=== PATIENT | male | born 1965 | race Caucasian/White ===

== ENCOUNTER → 2020-08-22 02:43 | Outpatient (CLI) | payer MEDICARE, MEDICAID, SELFPAY ==
[2020-08-22 19:42] LABS: SARS-CoV-2 RNA PCR Positive
== END ==
PROVIDERS: PCP Registered Nurse; Visit Provider Otolaryngology
DX: Z01.812 Encounter for preprocedural laboratory examination (principal); U07.1 COVID-19
CPT/HCPCS: C9803; U0003; U0005

== ENCOUNTER 2020-08-22 09:11 | Outpatient (CLI) | payer MEDICARE, MEDICAID, SELFPAY ==
--- NOTE | 2020-08-22 09:32 | ECG_ITS ---
Measurements Intervals [place] Rate: 89 P: 43 MI: 189 QRS: -5 QRSD: 150 T: 30 QT: 396 QTc: 484 Interpretive Statements SINUS RHYTHM RIGHT BUNDLE BRANCH BLOCK ABNORMAL ECG Electronically Signed On 08-22-2020 10:05:52 CDT by Stuart Wheat D.O.
[2020-08-22 10:41] LABS: Anion Gap 6 mmol/L (8-16); Blood Urea Nitrogen 36 mg/dL (9-20); Calcium 9.3 mg/dL (8.4-10.2); Carbon Dioxide 28 mmol/L (22-30); Chloride 102 mmol/L (98-107); Estimated Glomerular Filt Rate 53; Glucose 347 mg/dL (75-110); Potassium 4.7 mmol/L (3.4-5.0); Sodium 136 mmol/L (137-145)
== END 2020-08-22 09:12 | disposition home or self-care (01) ==
LOC: ANHSURGERY 09:16
PROVIDERS: Anesthesiology; PCP Registered Nurse; Visit Provider Otolaryngology
DX: E11.9 Type 2 diabetes mellitus without complications (principal); I10 Essential (primary) hypertension; Z01.818 Encounter for other preprocedural examination
CPT/HCPCS: 36415; 80048; 93005

== ENCOUNTER 2020-10-06 01:12 | Day surgery (SDC) | payer MEDICARE, MEDICAID, SELFPAY ==
[2020-08-15 08:39] VITALS: BMI 37.8
--- NOTE | 2020-08-22 07:01 | PM.HPGS ---
History of Present Illness History of Present Illness Consent: Risks, benefits, and alternatives have been discussed and questions answered. Patient agrees to proceed with procedure. Chief complaint: right chronic otitis media Narrative: Vaibhav Nathan is a 55 year old male With chronic otitis admitted for bilateral myringoto PMFSH Social History Social History Smoking status: Never smoker Alcohol intake: never Substance use: former Substance use type: marijuana Other substance usage details: marijuana tx for lung ca Gender identity (if verbalized by the patient): Male Spiritual care concerns: No Meds Home Medications and Allergies Home Medications Medication Instructions Recorded Confirmed Type dulaglutide [Trulicity] 1.5 mg SUBCUT USEASDIRECTD 08/15/20 08/15/20 History fluticasone furoate-vilanterol 1 inh INHALATION DAILY 08/15/20 08/15/20 History [Breo Ellipta] fluticasone propionate [Flonase 1 spray INTRANASAL DAILY 08/15/20 08/15/20 History Allergy Relief] glyburide 5 mg PO DAILY 08/15/20 08/15/20 History hydrochlorothiazide 12.5 mg PO DAILY 08/15/20 08/15/20 History hydrocodone-acetaminophen 1 tablet PO DAILY 08/15/20 08/15/20 History insulin glargine [Basaglar KwikPen 1 unit SUBCUT DAILY 08/15/20 08/15/20 History U-100 Insulin] losartan 50 mg PO DAILY 08/15/20 08/15/20 History metformin 1,000 mg PO DAILY 08/15/20 08/15/20 History omeprazole 40 mg PO DAILY 08/15/20 08/15/20 History pen needle, diabetic [BD 08/15/20 08/15/20 History Ultra-Fine Short Pen Needle] trazodone 50 mg PO DAILY 08/15/20 08/15/20 History Allergies Allergy/AdvReac Type Severity Reaction Status Date / Time No Known Allergies Allergy Verified 08/15/20 08:42 Exam Narrative: Exam Narrative: chest clear heart without murmurs soft extremities negative TMs retracted with fluid Assessment and Plan Additional Plan plan is for bilateral myringotomy with tubes
--- NOTE | 2020-10-05 06:45 | PM.HPGS ---
History of Present Illness History of Present Illness Consent: Risks, benefits, and alternatives have been discussed and questions answered. Patient agrees to proceed with procedure. Chief complaint: right chronic otitis media Narrative: Vaibhav Nathan is a 55 year his long history of recurring otitis multiple ear infections is set up for bilateral myrinld male [facility] Social History Social History Smoking status: Never smoker Alcohol intake: never Substance use: former Substance use type: marijuana Other substance usage details: marijuana tx for lung ca Gender identity (if verbalized by the patient): Male Spiritual care concerns: No Meds Home Medications and Allergies Home Medications Medication Instructions Recorded Confirmed Type dulaglutide [Trulicity] 1.5 mg SUBCUT USEASDIRECTD 08/15/20 09/22/20 History fluticasone furoate-vilanterol 1 inh INHALATION DAILY 08/15/20 09/22/20 History [Breo Ellipta] fluticasone propionate [Flonase 1 spray INTRANASAL DAILY 08/15/20 09/22/20 History Allergy Relief] glyburide 5 mg PO DAILY 08/15/20 09/22/20 History hydrochlorothiazide 12.5 mg PO DAILY 08/15/20 09/22/20 History hydrocodone-acetaminophen 1 tablet PO DAILY 08/15/20 09/22/20 History insulin glargine [Basaglar KwikPen 1 unit SUBCUT DAILY 08/15/20 09/22/20 History U-100 Insulin] losartan 50 mg PO DAILY 08/15/20 09/22/20 History metformin 1,000 mg PO DAILY 08/15/20 09/22/20 History omeprazole 40 mg PO DAILY 08/15/20 09/22/20 History pen needle, diabetic [BD 08/15/20 09/22/20 History Ultra-Fine Short Pen Needle] trazodone 50 mg PO DAILY 08/15/20 09/22/20 History acetaminophen 300 mg-codeine 30 mg 1 tablet PO Q4-6H PRN #30 tablet 09/29/20 09/29/20 Rx tablet acetaminophen 300 mg-codeine 30 mg 1 tablet PO Q4-6H PRN #30 tablet 09/29/20 09/29/20 Rx tablet clindamycin HCl 300 mg capsule 300 mg PO Q8H #30 cap 09/29/20 09/29/20 Rx Allergies Allergy/AdvReac Type Severity Reaction Status Date / Time No Known Allergies Allergy Verified 09/29/20 14:15 Exam Narrative: Exam Narrative: chest clear heart without murmurs abdomen soft derm is negative both tympanic membranes appear to be retracted with fluid Assessment and Plan Additional Plan bilateral myringotomy and tubes
--- NOTE | 2020-10-05 10:16 | WPDANESEPPF ---
Anes - Initial Pre Proc Eval Procedure: Operation Date: 10/06/20 08:15 Proposed Procedures p Bilateral Myringotomy,Insertion Of T-Tube - Khari Milton MD Date/Time: 10/05/20 10:16 Surgeon: Khari Milton MD Pre Op Diagnosis: right chronic otitis media Patient Data Age: 55 Gender: M Height: 1.85 m Weight: 130 kg Allergies Allergy/AdvReac Type Severity Reaction Status Date / Time No Known Allergies Allergy Verified 10/06/20 07:07 Home Medications Medication Instructions Recorded Confirmed Type dulaglutide [Trulicity] 1.5 mg SUBCUT USEASDIRECTD 08/15/20 10/06/20 History fluticasone furoate-vilanterol 1 inh INHALATION DAILY 08/15/20 10/06/20 History [Breo Ellipta] fluticasone propionate [Flonase 1 spray INTRANASAL DAILY 08/15/20 10/06/20 History Allergy Relief] glyburide 5 mg PO DAILY 08/15/20 10/06/20 History hydrochlorothiazide 12.5 mg PO DAILY 08/15/20 10/06/20 History hydrocodone-acetaminophen 1 tablet PO DAILY 08/15/20 10/06/20 History insulin glargine [Basaglar KwikPen 1 unit SUBCUT DAILY 08/15/20 10/06/20 History U-100 Insulin] losartan 50 mg PO DAILY 08/15/20 10/06/20 History metformin 1,000 mg PO DAILY 08/15/20 10/06/20 History omeprazole 40 mg PO DAILY 08/15/20 10/06/20 History pen needle, diabetic [BD 08/15/20 09/22/20 History Ultra-Fine Short Pen Needle] trazodone 50 mg PO DAILY 08/15/20 10/06/20 History acetaminophen 300 mg-codeine 30 mg 1 tablet PO Q4-6H PRN #30 tablet 09/29/20 09/29/20 Rx tablet acetaminophen 300 mg-codeine 30 mg 1 tablet PO Q4-6H PRN #30 tablet 09/29/20 10/06/20 Rx tablet clindamycin HCl 300 mg capsule 300 mg PO Q8H #30 cap 09/29/20 10/06/20 Rx Patient hx anesthesia problems: none Family hx anesthesia problems: none PMFSH Past Medical History Medical History (Updated 10/05/20 @ 10:17 by Sincere Cervantes DO) Diabetes type 2, controlled GERD (gastroesophageal reflux disease) History of lung cancer Hypertension Surgical History Surgical History (Updated 10/05/20 @ 10:17 by Sincere Cervantes DO) History of appendectomy S/P orchiectomy Social History Social History Smoking status: Never smoker Alcohol intake: never Substance use: former Substance use type: marijuana Other substance usage details: marijuana tx for lung ca Living arrangements: with family Gender identity (if verbalized by the patient): Male Spiritual care concerns: No Anes - Eval Final PreProcedure Day of Procedure 10/05/20 10:16 Patient weight: obese Heart: regular rate and rhythm Lungs: clear to auscultation and normal air movement Airway: Mallampati scale class III Neurological: alert and oriented Last oral intake: >/= 8 hours ASA classification: III Emergent: no Anesthetic plan: proceed Anesthesia type and monitoring: general and standard monitoring Informed Consent: The patient's anesthetic plan and its attendant risks and benefits were discussed with the patient/family/POA. Questions were solicited and answers provided to the satisfaction of the patient/family/POA.
[2020-10-06] VITALS (7 sets, daily range): BP systolic 83–169; BP diastolic 54–97; PULSE 79–93; RESP 15–20; TEMP 36.1–36.6; O2SAT 79–100; BMI 36.4
--- NOTE | 2020-10-06 05:51 | WPDHPUPDATE1 ---
History and Physical Update Update Date/Time: 10/06/20 05:51 History and Physical has been reviewed, including an updated exam of the patient. There are NO changes in the patient's condition. Risks, benefits, and alternatives have been discussed and questions answered. Patient agrees to proceed with procedure.
[2020-10-06] MEDS: LACTATED RINGERS 1,000 ML 30 ML IV CONT (07:21)
[2020-10-06 07:54] LABS: Glucose Point of Care 193 mg/dl (65-105)
[2020-10-06] MEDS: fentaNYL CITRATE INJ (*CRX) 100 MCG/2 ML VIAL 25 MCG IV PUSH (08:19)
[2020-10-06] MEDS: CIPROFLOXACIN HCL 0.3% OP SOLN 2.5 ML BTL 4 DROP EACH EAR (08:24)
--- NOTE | 2020-10-06 08:49 | PM.PROC ---
Procedure Note - Detailed Date of procedure: 10/06/20 Pre-op diagnosis: right chronic otitis media Post-op diagnosis: same Procedure performed: Bilateral myringotomy with T tubes Description of procedure: Patient was prepped and draped fashion general anesthesia the right ear was inspected and inferior incision made T-tube inserted left ear was inspected is a questionable perforation nor monomer and a T-tube was inserted through that patient awakened returned to recovery in good condition Anesthesia: GLMA Surgeon: Khari Milton MD Estimated blood loss (mL): 0 Drains: No Packing: No Pathology: none sent Condition: critical Disposition: PACU Findings: Bilateral chronic otitis
[2020-10-06] MEDS: oxyCODONE HCL (*CRX) 5 MG TAB IR PO (09:34)
--- NOTE | 2020-10-06 14:01 | SUR.PREOP ---
late note. 0815; dr alanis notified of blood sugar.
[2020-10-11 09:35] LABS: Glucose Point of Care 190 mg/dl (65-105)
--- NOTE | 2020-10-11 09:57 | PM.PROC ---
Procedure Note - Detailed Date of procedure: 10/11/20 Pre-op diagnosis: right chronic otitis media Surgeon: Khari Milton MD
== END 2020-10-06 10:02 | disposition home or self-care (01) ==
PROVIDERS: PCP Registered Nurse; Visit Provider Otolaryngology
PROC: (CPT 69436; principal; 2020-10-06 08:15)
DX: H66.93 Otitis media, unspecified, bilateral (principal); E11.9 Type 2 diabetes mellitus without complications; I10 Essential (primary) hypertension; K21.9 Gastro-esophageal reflux disease without esophagitis; Z85.118 Personal history of other malignant neoplasm of bronchus and lung; E66.9 Obesity, unspecified; Z68.36 Body mass index [BMI] 36.0-36.9, adult; Z79.4 Long term (current) use of insulin; Z79.84 Long term (current) use of oral hypoglycemic drugs
CPT/HCPCS: 69436; 82948; A9270; J2704; J3010; J7120

== ENCOUNTER 2020-10-17 12:47 | Emergency (ER) | payer MEDICARE, MEDICAID, SELFPAY ==
[2020-10-17 12:55] VITALS: BP 168/89; PULSE 89; RESP 18; TEMP 36.4; O2SAT 99
--- NOTE | 2020-10-17 14:14 | ED.EAR ---
HPI - Ear Problem General Chief complaint: Ear Stated complaint: Ear/head pain Time Seen by Provider: 10/17/20 13:03 Source: patient Mode of arrival: ambulatory Limitations: no limitations History of Present Illness HPI Narrative: Patient is a 55-year-old male who presents complaining of right ear pain. He reports having myringotomy tubes placed approximately [address] Branham. He reports bloody and purulent drainage and pain x 2 days. He reports increased pain this am. Patient reports attempting to call ENT office for follow up but states no available appointment for 2 days. He denies fever or other complaints. He denies taking over the counter medications for pain. MD Complaint: ear pain Related Data Home Medications Medication Instructions Recorded Confirmed Basaglar KwikPen U-100 Insulin 1 unit SUBCUT DAILY 08/15/20 10/06/20 Breo Ellipta 1 inh INHALATION DAILY 08/15/20 10/06/20 Trulicity 1.5 mg SUBCUT USEASDIRECTD 08/15/20 10/06/20 fluticasone propionate [Flonase 1 spray INTRANASAL DAILY 08/15/20 10/06/20 Allergy Relief] glyburide 5 mg PO DAILY 08/15/20 10/06/20 hydrochlorothiazide 12.5 mg PO DAILY 08/15/20 10/06/20 hydrocodone-acetaminophen 1 tablet PO DAILY 08/15/20 10/06/20 losartan 50 mg PO DAILY 08/15/20 10/06/20 metformin 1,000 mg PO DAILY 08/15/20 10/06/20 omeprazole 40 mg PO DAILY 08/15/20 10/06/20 pen needle, diabetic [BD 08/15/20 09/22/20 Ultra-Fine Short Pen Needle] trazodone 50 mg PO DAILY 08/15/20 10/06/20 Allergies Allergy/AdvReac Type Severity Reaction Status Date / Time No Known Allergies Allergy Verified 10/17/20 13:03 Review of Systems Review of Systems: Narrative: CONSTITUTIONAL: Denies fever, chills, or sweats. EYES: Denies visual changes, redness, or discharge. ENT: Reports right ear pain CARDIOVASCULAR: Denies chest pain, palpitations, or edema. RESPIRATORY: Denies cough or dyspnea. GASTROINTESTINAL: Denies abdominal pain, nausea, vomiting, or diarrhea. GENITOURINARY: Denies dysuria or hematuria. SKIN: Denies rash or itching. MUSCULOSKELETAL: Denies back pain, joint pain, or myalgia. NEUROLOGIC: Denies headache, numbness, dizziness, or weakness. PSYCHIATRIC: Denies anxiety or depression. [facility] Past Medical History Medical History Diabetes type 2, controlled GERD (gastroesophageal reflux disease) History of lung cancer Hypertension Surgical History Surgical History History of appendectomy S/P orchiectomy Social History Social History Smoking status: Never smoker Alcohol intake: never Substance use: former Substance use type: marijuana Other substance usage details: marijuana tx for lung ca Gender identity (if verbalized by the patient): Male Spiritual care concerns: No Comments At the time of signature, I have reviewed and agree with nursing past medical, surgical, social, and family history unless otherwise noted. Please see nursing chart for further information. There is no relevant family history pertinent to the presenting complaint. Exam Narrative: Exam Narrative: GENERAL: Well-appearing, well-nourished, and in no acute distress. HEAD: Normocephalic, atraumatic. EYES: EOMI. No redness or drainage. Conjunctiva are normal. ENT: Mucous membranes pink and moist. Nares clear. No rhinorrhea. Left TM normal right with myringotomy tube in place. Right TM unable to visualize ear has myringotomy tube is not visible related to large amount of pus and serous drainage. NECK: AROM. Supple. No lymphadenopathy. CHEST: No respiratory distress. Clear to auscultation. HEART: Regular rate and rhythm. No murmur appreciated. Normal peripheral pulses. EXTREMITIES: Normal range of motion. No edema. SKIN: Warm, dry, no rash. NEURO: No focal deficits. Alert and oriented x3. Gait steady. PSYCH:
[2020-10-17 14:30] VITALS: BP 150/88; PULSE 80; RESP 20; O2SAT 100
== END 2020-10-17 14:31 | disposition home or self-care (01) ==
PROVIDERS: Emergency Provider Nurse Practitioner; PCP Registered Nurse
DX: H65.21 Chronic serous otitis media, right ear (principal); E11.9 Type 2 diabetes mellitus without complications; K21.9 Gastro-esophageal reflux disease without esophagitis; Z85.118 Personal history of other malignant neoplasm of bronchus and lung; I10 Essential (primary) hypertension; Z79.84 Long term (current) use of oral hypoglycemic drugs; Z79.899 Other long term (current) drug therapy
CPT/HCPCS: 99283

== ENCOUNTER 2020-10-25 13:12 | Inpatient (IN) | payer MEDICARE, MEDICAID, SELFPAY ==
[2020-10-25] VITALS (11 sets, daily range): BP systolic 129–169; BP diastolic 60–94; PULSE 76–88; RESP 12–20; TEMP 36.1–36.7; O2SAT 95–100
--- NOTE | ~2020-10-25 | CT_ITS ---
EXAMINATION: CT IAC/mastoids BI w con EXAM DATE: 10/25/2020 14:44 INDICATION: Recent myringotomy tubes, right EAC erythema/edema. Swelling and drainage, right facial d volodymyr. TECHNIQUE: Spiral CT of the internal auditory canals was performed following intravenous injection of 75 mL Omnipaque 350. Axial and coronal images were reviewed. The dose-length product (DLP) for thi s examination was 298.01 mGy-cm. The exposure was tailored according to patient size, and iterative reconstruction (ASIR) was used as additional dose reduction technique. Comparison is made to prior ex amination from 03/31/2019. FINDINGS: Internal auditory canals are symmetric. RIGHT side: There is completely opacified right middle ear and mastoid air cells with some erosion, d ehiscence of the anterior aspect of the attic and the lateral aspect of the eustachian tube. The exte rnal auditory canal has thickened appearance, could be cellulitis. The seventh cranial nerve has a no rmal course. The scutum is intact. The ossicles are normal in appearance. The cochlea and semicir cular canals are normal in appearance. Internal auditory canal is normal in appearance and symmetric compared to contralateral side. LEFT side: Previously seen left-sided myringotomy tube no longer present. The middle ear is well aer ated. The mastoid air cells are well aerated. The seventh cranial nerve has a normal course. The s cutum is intact. The ossicles are normal in appearance. Small portions of the tegmen tympani have w all that is imperceptible. The cochlea and semicircular canals are normal in appearance. Internal a uditory canal is normal in appearance and symmetric compared to contralateral side. IMPRESSION: Right mastoid opacity, probably otomastoiditis given with development of dehiscence of th e anterior aspect of the attic and the lateral aspect of the eustachian tube. External auditory canal thickening, clinical correlation for cellulitis versus malignant otitis externa. Reviewed, dictated and finalized at location B. IMPRESSION: Right mastoid opacity, probably otomastoiditis given with developme nt of dehiscence of the anterior aspect of the attic and the lateral aspect of the eustachian tube. External auditory canal thickening, clinical correlation f or cellulitis versus malignant otitis externa.
--- NOTE | 2020-10-25 13:41 | ED.GENADULT ---
HPI - General Adult General Chief complaint: Unspecified <Katie Acosta PA-C - Last Filed: 10/25/20 15:40> Stated complaint: right ear pain post op <KARLO Williamson Last Filed: 10/25/20 15:40> Time Seen by Provider: 10/25/20 13:20 <Katie Acosta PA-C - Last Filed: 10/25/20 15:40> Source: patient <KARLO Williamson Last Filed: 10/25/20 15:40> Mode of arrival: ambulatory <KARLO Williamson Last Filed: 10/25/20 15:40> Limitations: no limitations <KARLO Williamson Last Filed: 10/25/20 15:40> History of Present Illness HPI narrative: This is a 55-year-old male that presents to the emergency department for right ear pain and abnormal discharge. Patient had bilateral myringotomy tubes placed on 06 of October. Has been having trouble with discharge from the right ear and pain. Has been on multiple antibiotics for this without relief. Reports decreased hearing in the right ear. Was sent to the ER today by Dr. Milton for further evaluation and treatment. Reports he has also noted over the last 3 days that he has had a right-sided facial droop that includes the forehead. Denies fever. <Katie Acosta PA-C - Last Filed: 10/25/20 15:40> Related Data Home medications: Home Medications Medication Instructions Recorded Confirmed Basaglgila MasonPen U-100 Insulin 1 unit SUBCUT DAILY 08/15/20 10/25/20 Breo Ellipta 1 inh INHALATION DAILY 08/15/20 10/25/20 Trulicity 1.5 mg SUBCUT USEASDIRECTD 08/15/20 10/25/20 fluticasone propionate [Flonase 1 spray INTRANASAL DAILY 08/15/20 10/25/20 Allergy Relief] glyburide 5 mg PO DAILY 08/15/20 10/25/20 hydrochlorothiazide 12.5 mg PO DAILY 08/15/20 10/25/20 hydrocodone-acetaminophen 1 tablet PO TID PRN 08/15/20 10/25/20 losartan 50 mg PO DAILY 08/15/20 10/25/20 metformin 1,000 mg PO BID 08/15/20 10/25/20 omeprazole 40 mg PO DAILY 08/15/20 10/25/20 pen needle, diabetic [BD 08/15/20 10/20/20 Ultra-Fine Short Pen Needle] trazodone 50 mg PO HS 08/15/20 10/25/20 <Katie Acosta PA-C - Last Filed: 10/25/20 15:40> Allergies/adverse reactions: Allergies Allergy/AdvReac Type Severity Reaction Status Date / Time No Known Allergies Allergy Verified 10/25/20 14:18 <Katie Acosta PA-C - Last Filed: 10/25/20 15:40> Review of Systems Review of Systems: Narrative: CONSTITUTIONAL: Denies fever, ENT: Reports otalgia. NEUROLOGIC: Reports headache, numbness, and weakness. <Katei Acosta PA-C - Last Filed: 10/25/20 15:40> All systems reviewed & are unremarkable except as noted in HPI and below <Katie Acosta PA-C - Last Filed: 10/25/20 15:40> [facility], [facility] Past Medical History Medical History: Medical History Diabetes type 2, controlled GERD (gastroesophageal reflux disease) History of lung cancer Hypertension <Katie Acosta PA-C - Last Filed: 10/25/20 15:40> Surgical History Surgical History: Surgical History History of appendectomy S/P orchiectomy <Katie Acosta PA-C - Last Filed: 10/25/20 15:40> Social History Social History: Social History Alcohol intake: never Substance use: former Substance use type: marijuana Other substance usage details: marijuana tx for lung ca Gender identity (if verbalized by the patient): Male Spiritual care concerns: No <Katie Acosta PA-C - Last Filed: 10/25/20 15:40> Exam Narrative: Exam Narrative: GENERAL: Well-appearing, well-nourished, and in no acute distress. HEAD: Normocephalic, atraumatic. EYES: PERRLA and EOMI. ENT: Nares clear, no rhinorrhea or epistaxis. Mucous membranes moist. Oropharynx without tonsillar hypertrophy exudate or other lesions. Left TM with myringotomy tube placed. No erythema, edema or abnormal drainage in the external auditory canal o
[2020-10-25 13:52] LABS: Basophils Percent Auto 0.8 % (0.2-1.2); Eosinophils Absolute Auto 0.3 K/mm3 (0-0.3); Eosinophils Percent Auto 5.2 % (0-4.4); Hematocrit 34.3 % (42.0-52.0); Hemoglobin 11.2 g/dL (14.0-18.0); Immature Granulocyte Absolute 0.02 K/mm3 (0.00-0.031); Immature Granulocyte Percent A 0.4 % (0-0.5); Lymphocytes Absolute Auto 1.11 K/mm3 (0.9-3.2); Lymphocytes Percent Auto 23.2 % (18.3-44.2); Mean Corpuscular HGB Conc 32.7 g/dl (32-36); Mean Corpuscular Hemoglobin 29.9 pg (26-34); Mean Corpuscular Volume 91.7 fl (80-100); Mean Platelet Volume 10.3 fl (7.4-10.4); Monocytes Absolute Auto 0.4 K/mm3 (0.1-0.6); Monocytes Percent Auto 7.3 % (2.6-8.5); Neutrophils Percent Auto 63.1 % (45.5-73.1); Platelet Count Result 123 k/mm3 (150-375); Red Blood Count 3.74 M/mm3 (4.6-6.20); Red Cell Distribution Width 13.9 % (11.5-14.5); White Blood Count 4.8 K/mm3 (4.5-10.0)
[2020-10-25 14:01] LABS: INR 1.1; Prothrombin Time 14.3 Seconds (11.1-14.7)
[2020-10-25 14:02] LABS: Partial Thromboplastin Time 27.7 SECONDS (22.3-36.8)
[2020-10-25 14:08] LABS: Anion Gap 11 mmol/L (8-16); Blood Urea Nitrogen 30 mg/dL (9-20); CRP 1.6 mg/dL (<1.0); Carbon Dioxide 25 mmol/L (22-30); Chloride 101 mmol/L (98-107); Estimated CRCL calculation 75 ml/min; Estimated Glomerular Filt Rate 53; Glucose 328 mg/dL (75-110); Potassium 4.1 mmol/L (3.4-5.0); Sodium 137 mmol/L (137-145)
[2020-10-25] MEDS: ONDANSETRON INJ 4 MG/2 ML VIAL IV PUSH (14:12)
[2020-10-25] MEDS: MORPHINE SULFATE (*CRX) 4 MG/ML INJ IV PUSH (14:12)
[2020-10-25 14:42] LABS: Erythrocyte Sedimentation Rate 126 mm/hr (0-20)
[2020-10-25 15:53] LABS: Glucose Point of Care 219 mg/dl (65-105)
--- NOTE | 2020-10-25 15:54 | WPDHPUPDATE1 ---
History and Physical Update Update Date/Time: 10/25/20 15:54 History and Physical has been reviewed, including an updated exam of the patient. There are NO changes in the patient's condition. Risks, benefits, and alternatives have been discussed and questions answered. Patient agrees to proceed with procedure.
--- NOTE | 2020-10-25 15:55 | P.HP_ITS ---
History of Present Illness History of Present Illness Consent: Risks, benefits, and alternatives have been discussed and questions answered. Patient agrees to proceed with procedure. Chief complaint: right ear pain post op Narrative: Vaibhav Nathan is a 55 year old male [facility] Past Medical History Medical History Diabetes type 2, controlled GERD (gastroesophageal reflux disease) History of lung cancer Hypertension Surgical History Surgical History History of appendectomy S/P orchiectomy Social History Social History Alcohol intake: never Substance use: former Substance use type: marijuana Other substance usage details: marijuana tx for lung ca Gender identity (if verbalized by the patient): Male Spiritual care concerns: No Meds Home Medications and Allergies Home Medications Medication Instructions Recorded Confirmed Type Basaglar KwikPen U-100 Insulin 1 unit SUBCUT DAILY 08/15/20 10/20/20 History Breo Ellipta 1 inh INHALATION DAILY 08/15/20 10/20/20 History Trulicity 1.5 mg SUBCUT USEASDIRECTD 08/15/20 10/20/20 History fluticasone propionate [Flonase 1 spray INTRANASAL DAILY 08/15/20 10/20/20 History Allergy Relief] glyburide 5 mg PO DAILY 08/15/20 10/20/20 History hydrochlorothiazide 12.5 mg PO DAILY 08/15/20 10/20/20 History hydrocodone-acetaminophen 1 tablet PO DAILY 08/15/20 10/20/20 History losartan 50 mg PO DAILY 08/15/20 10/20/20 History metformin 1,000 mg PO DAILY 08/15/20 10/20/20 History omeprazole 40 mg PO DAILY 08/15/20 10/20/20 History pen needle, diabetic [BD 08/15/20 10/20/20 History Ultra-Fine Short Pen Needle] trazodone 50 mg PO DAILY 08/15/20 10/20/20 History acetaminophen 300 mg-codeine 30 mg 1 tablet PO Q4-6H PRN #30 tablet 09/29/20 10/20/20 Rx tablet acetaminophen 300 mg-codeine 30 mg 1 tablet PO Q4-6H PRN #30 tablet 09/29/20 10/20/20 Rx tablet clindamycin HCl 300 mg capsule 300 mg PO Q8H #30 cap 09/29/20 10/20/20 Rx clindamycin HCl 300 mg PO Q8H 7 Days #21 cap 10/17/20 10/20/20 Rx ibuprofen 800 mg PO TID PRN #20 tablet 10/17/20 10/20/20 Rx ofloxacin 10 drp RIGHT EAR DAILY 7 Days #5 ml 10/17/20 10/20/20 Rx Allergies Allergy/AdvReac Type Severity Reaction Status Date / Time No Known Allergies Allergy Verified 10/25/20 14:18 Vital Signs Vital Signs - 24 hr 10/25/20 13:15 Temperature 36.7 C Pulse Rate 88 Respiratory Rate 16 Blood Pressure 154/90 H Pulse Oximetry 95 Exam Narrative: Exam Narrative: right mastoidectomy
--- NOTE | 2020-10-25 15:58 | WPDANESEPPF ---
Anes - Initial Pre Proc Eval Procedure: Operation Date: 10/25/20 16:00 Proposed Procedures p Mastoidectomy - Khari Milton MD Date/Time: 10/25/20 15:58 Surgeon: Khari Milton MD Pre Op Diagnosis: right ear pain post op Patient Data Age: 55 Gender: M Height: 1.85 m Weight: 127.2 kg Last Vital Signs Temp 36.7 C 10/25/20 13:15 Pulse 88 10/25/20 13:15 Resp 16 10/25/20 13:15 BP 154/90 H 10/25/20 13:15 Pulse Ox 95 10/25/20 13:15 Allergies Allergy/AdvReac Type Severity Reaction Status Date / Time No Known Allergies Allergy Verified 10/25/20 14:18 Home Medications Medication Instructions Recorded Confirmed Type Arsenmichellegila WassermanSamir U-100 Insulin 1 unit SUBCUT DAILY 08/15/20 10/20/20 History Breo Ellipta 1 inh INHALATION DAILY 08/15/20 10/20/20 History Trulicity 1.5 mg SUBCUT USEASDIRECTD 08/15/20 10/20/20 History fluticasone propionate [Flonase 1 spray INTRANASAL DAILY 08/15/20 10/20/20 History Allergy Relief] glyburide 5 mg PO DAILY 08/15/20 10/20/20 History hydrochlorothiazide 12.5 mg PO DAILY 08/15/20 10/20/20 History hydrocodone-acetaminophen 1 tablet PO DAILY 08/15/20 10/20/20 History losartan 50 mg PO DAILY 08/15/20 10/20/20 History metformin 1,000 mg PO DAILY 08/15/20 10/20/20 History omeprazole 40 mg PO DAILY 08/15/20 10/20/20 History pen needle, diabetic [BD 08/15/20 10/20/20 History Ultra-Fine Short Pen Needle] trazodone 50 mg PO DAILY 08/15/20 10/20/20 History acetaminophen 300 mg-codeine 30 mg 1 tablet PO Q4-6H PRN #30 tablet 09/29/20 10/20/20 Rx tablet acetaminophen 300 mg-codeine 30 mg 1 tablet PO Q4-6H PRN #30 tablet 09/29/20 10/20/20 Rx tablet clindamycin HCl 300 mg capsule 300 mg PO Q8H #30 cap 09/29/20 10/20/20 Rx clindamycin HCl 300 mg PO Q8H 7 Days #21 cap 10/17/20 10/20/20 Rx ibuprofen 800 mg PO TID PRN #20 tablet 10/17/20 10/20/20 Rx ofloxacin 10 drp RIGHT EAR DAILY 7 Days #5 ml 10/17/20 10/20/20 Rx Laboratory Tests 10/25/20 10/25/20 10/25/20 13:43 13:43 13:43 WBC 4.8 K/mm3 K/mm3 (4.5-10.0) RBC 3.74 M/mm3 L M/mm3 (4.6-6.20) Hgb 11.2 g/dL L g/dL (14.0-18.0) Hct 34.3 % L % (42.0-52.0) MCV 91.7 fl fl (80-100) MCH 29.9 pg pg (26-34) MCHC 32.7 g/dl g/dl (32-36) RDW 13.9 % % (11.5-14.5) Plt Count 123 k/mm3 L k/mm3 (150-375) MPV 10.3 fl fl (7.4-10.4) Immature Gran % (Auto) 0.4 % % (0-0.5) Neut % (Auto) 63.1 % % (45.5-73.1) Lymph % (Auto) 23.2 % % (18.3-44.2) Rush % (Auto) 7.3 % % (2.6-8.5) Eos % (Auto) 5.2 % H % (0-4.4) Baso % (Auto) 0.8 % % (0.2-1.2) Lymph # (Auto) 1.11 K/mm3 K/mm3 (0.9-3.2) Rush # (Auto) 0.4 K/mm3 K/mm3 (0.1-0.6) Eos # (Auto) 0.3 K/mm3 K/mm3 (0-0.3) Baso # (Auto) 0.0 K/mm3 K/mm3 (0.0-0.1) Abs Immat Gran (auto) 0.02 K/mm3 K/mm3 (0.00-0.031) Absolute Neuts (auto) 3.0 K/mm3 K/mm3 (1.3-6.7) Absolute Nucleated RBC 0.0 K/mm3 K/mm3 (0.0-0.012) Nucleated RBC % 0.0 % % (0.0-0.2) ESR 126 mm/hr H mm/hr (0-20) PT 14.3 Seconds Seconds (11.1-14.7) INR 1.1 APTT 27.7 SECONDS SECONDS (22.3-36.8) Sodium 137 mmol/L mmol/L (137-145) Potassium 4.1 mmol/L mmol/L (3.4-5.0) Chloride 101 mmol/L mmol/L (98-107) Carbon Dioxide 25 mmol/L mmol/L (22-30) Anion Gap 11 mmol/L mmol/L (8-16) BUN 30 mg/dL H mg/dL (9-20) Creatinine 1.40 mg/dL H mg/dL (0.7-1.3) Estim Creat Clear Calc 75 ml/min ml/min Estimated GFR 53 L (59 - ) Glucose 328 mg/dL H mg/dL (75-110) POC Capillary Glucose Calcium 10.0 mg/dL mg/dL (8.4-10.2) C-Reactive Protein 1.6 mg/dL H mg/dL (<1.0) 10/25/20 15:
[2020-10-25] MEDS: CIPROFLOXACIN HCL 0.3% OP SOLN 2.5 ML BTL 4 DROP EACH EAR (16:32)
[2020-10-25] MEDS: LIDO 1%/EPINEPHRINE 1:100,000 50 ML VIAL INFILTRATE (16:32)
--- NOTE | 2020-10-25 17:02 | P.OP_ITS ---
Procedure Note - Detailed Date of Procedure 10/25/20 Pre-op Diagnosis right ear pain post op Post-op Diagnosis same Procedure Performed cortical mastoid Surgeon Khari Milton MD Cotton Bag Clipper None Anesthesia general Description of Procedure patient was prepped and draped in usual fashion after induction general anesthesia the right ear was inspected there was a tube in place with drainage was suctioned out drops placed in the postauricular incision was made cortex periosteum elevated a 6 mm drill entered the mastoid to mastoid was markedly sclerotic no pus was aspirated was then closed in layers and a drain placed in the mastoid dressing placed on Drains Yes Packing No Pathology none sent Complications No immediate complications Disposition floor
[2020-10-25] MEDS: LACTATED RINGERS 1,000 ML 30 ML IV CONT ×2 (17:07→17:08)
[2020-10-25] MEDS: fentaNYL CITRATE INJ (*CRX) 100 MCG/2 ML VIAL 25 MCG IV PUSH ×4 (17:21→17:47)
--- NOTE | 2020-10-25 17:42 | SUR.PHASEI ---
Simple mask removed at 1740.
[2020-10-25] MEDS: traZODone HCL 50 MG TABLET PO (20:42)
[2020-10-25] MEDS: PANTOPRAZOLE 40 MG TABLET PO (20:42)
[2020-10-25] MEDS: HYDROcodone/acetaminophen (*CRX) 5-325 MG TABLET 1 TAB PO (20:43)
--- NOTE | 2020-10-25 20:45 | WPDCN ---
Assessment and Plan Assessment and plan (1) Mastoiditis of right side: Code(s): H70.91 - Unspecified mastoiditis, right ear Status: Acute Assessment and Plan: Postoperative day 0, cortical mastoidectomy. Management per Dr. Milton. Currently on cefepime. (2) Clancy's palsy: Code(s): G51.0 - Clancy's palsy Status: Acute Assessment and Plan: Right-sided Clancy palsy that has developed over the last 3 days likely related to above. (3) Type 2 diabetes mellitus: Code(s): E11.9 - Type 2 diabetes mellitus without complications Status: Acute Assessment and Plan: Continue basal insulin and glyburide. Hold metformin as he received contrast today. Check hemoglobin A1c. Initiate sliding scale insulin, Accu-Cheks, and hypoglycemic protocol. (4) Gastroesophageal reflux: Code(s): K21.9 - Gastro-esophageal reflux disease without esophagitis Status: Acute Assessment and Plan: No acute issues. Continue PPI. (5) Hypertension: Code(s): I10 - Essential (primary) hypertension Status: Chronic Assessment and Plan: Blood pressures were elevated on arrival but have since improved. Continue antihypertensives and monitor closely. (6) Renal failure: Code(s): N19 - Unspecified kidney failure Status: Acute Assessment and Plan: Creatinine today is 1.40, stable on labs done 2 months ago. Likely a chronic finding. Additional Plan Thank you for allowing us to participate in this patient's care. Please do not hesitate to contact us with any questions. Supervising physician for this medical consultation is Dr. Nola Mcrae. HPI Data of Consult Date/Time: 10/25/20 20:45 Requesting Physician: Khari Milton MD Primary Care Provider: Angelina Gibson, LINOT[employer]CH[employer]IC Consult Narrative Narrative: This is a 55-year-old male with type 2 diabetes mellitus, hypertension, COPD, and hypertension whom the hospitalist service has been consulted for management of his medical conditions postoperatively. He has had ongoing problems with otitis media and has had multiple procedures per Dr. Milton in the past, most recently tympanoplasty with tube placement on 10/06/2020. Over the last 3 days he has developed a right-sided facial droop which includes the forehead and he has had ongoing pain in his right ear. This afternoon he presented to the emergency department with pretty significant right ear pain, discharge, and decreased hearing and he is now status post right cortical mastoidectomy. He is currently describing sharp shooting pain in the right ear radiating throughout the right side of his head, rated 10/10. Hydrocodone has not provided him with much relief. Aside from the pain he has no specific complaints and specifically denies fever, chills, sweats, nausea, and vomiting. Review of Systems Review of Systems: Narrative: Twelve systems were reviewed with pertinent positives and negatives as per HPI. He denies sinus congestion, rhinorrhea, and odynophagia. No cough or shortness of breath. No chest pain. His last hemoglobin A1c was about 7.5%. No blurry vision, polydipsia, or polyuria. He apparently has sleep apnea however tells me his insurance company will not pay for CPAP. Except as documented, all other systems were reviewed and are negative. [facility] Past Medical History Medical History (Updated 10/25/20 @ 23:19 by Yomaira White PA-C) Diabetic peripheral neuropathy Gastroesophageal reflux History of kidney stones History of lung cancer Patient reportedly treated it himself with marijuana. Hypertension Type 2 diabetes mellitus Surgical History Surgical History (Updated 10/25/20 @ 23:19 by Yomaira White PA-C) History of appendectomy History of orchiectomy Secondary to left-sided testicular torsion. History of right mastoidectomy (10/25/20) History of tympanoplasty Family History Family History (Updated 0
[2020-10-25 21:46] LABS: Hemoglobin A1C 8.7 % (<5.7)
[2020-10-25 22:22] LABS: Glucose Point of Care 192 mg/dl (65-105)
[2020-10-25] MEDS: IBUPROFEN 400 MG TABLET 800 MG PO (23:06)
[2020-10-25] MEDS: HYDROmorphone HCL INJ (*CRX) 1 MG/ML SYR 0.5 MG IV PUSH (23:17)
[2020-10-26] MEDS: HYDROmorphone HCL INJ (*CRX) 1 MG/ML SYR 0.5 MG IV PUSH (00:11)
[2020-10-26 00:14] VITALS: BP 187/93; PULSE 87; RESP 20; TEMP 36.4; O2SAT 96
[2020-10-26] MEDS: HYDROmorphone HCL INJ (*CRX) 1 MG/ML SYR IV PUSH ×5 (01:17→19:39)
[2020-10-26] MEDS: OFLOXACIN 0.3% OPHTH SOLN 5 ML BTL 5 DROP RIGHT EAR ×3 (03:45→16:49)
[2020-10-26 04:14] VITALS: BP 150/82; PULSE 86; RESP 18; TEMP 36.3; O2SAT 92
[2020-10-26 06:03] LABS: Hematocrit 31.9 % (42.0-52.0); Hemoglobin 10.5 g/dL (14.0-18.0); Mean Corpuscular HGB Conc 32.9 g/dl (32-36); Mean Corpuscular Hemoglobin 30.2 pg (26-34); Mean Corpuscular Volume 91.7 fl (80-100); Mean Platelet Volume 10.3 fl (7.4-10.4); Platelet Count Result 110 k/mm3 (150-375); Red Blood Count 3.48 M/mm3 (4.6-6.20); Red Cell Distribution Width 13.8 % (11.5-14.5); White Blood Count 4.6 K/mm3 (4.5-10.0)
[2020-10-26 06:19] LABS: Anion Gap 6 mmol/L (8-16); Blood Urea Nitrogen 23 mg/dL (9-20); Calcium 9.2 mg/dL (8.4-10.2); Carbon Dioxide 29 mmol/L (22-30); Chloride 103 mmol/L (98-107); Estimated CRCL calculation 94 ml/min; Estimated Glomerular Filt Rate > 60; Glucose 173 mg/dL (75-110); Magnesium 1.8 mg/dL (1.6-2.3); Potassium 3.9 mmol/L (3.4-5.0); Sodium 138 mmol/L (137-145)
[2020-10-26 07:21] LABS: Glucose Point of Care 170 mg/dl (65-105)
[2020-10-26 07:45] LABS: Glucose Point of Care 148 mg/dl (65-105)
[2020-10-26 08:15] VITALS: BP 138/77; PULSE 83; RESP 18; TEMP 36.1; O2SAT 95
--- NOTE | 2020-10-26 08:36 | PM.TDS ---
Transfer Discharge Sum: Prov Provider Date of admission: 10/25/20 17:11 Primary care physician: Angelina Gibson, ENTRY CLERK Admitting clinician: Khari Milton MD Consults: 10/25/20 Consult to Physician Routine Comment: spoke to lyla [phone] (,) Consulting Provider: Nola Mcrae parks and recreation worker/MD group to consult: hospitalist Reason for consultation: diabetes Has provider been notified: Yes DS: Admitting Diagnosis Admitting Diagnosis Admitting Diagnosis: Mastoiditis and facial paralysis DS: Discharge Diagnosis Discharge Diagnosis (1) Acute mastoiditis of right side: Code(s): H70.001 - Acute mastoiditis without complications, right ear Status: Acute Transfer Discharge Sum: Med Medications Active and Home Medications: Home Medications Basaglar KwikPen U-100 Insulin 1 unit SUBCUT DAILY 08/15/20 [History Confirmed 10/25/20] Breo Ellipta 1 inh INHALATION DAILY 08/15/20 [History Confirmed 10/25/20] Trulicity 1.5 mg SUBCUT USEASDIRECTD 08/15/20 [History Confirmed 10/25/20] fluticasone propionate [Flonase Allergy Relief] 1 spray INTRANASAL DAILY 08/15/20 [History Confirmed 10/25/20] glyburide 5 mg PO BID 08/15/20 [History Confirmed 10/25/20] hydrochlorothiazide 12.5 mg PO DAILY 08/15/20 [History Confirmed 10/25/20] hydrocodone-acetaminophen 1 tablet PO TID PRN 08/15/20 [History Confirmed 10/25/20] losartan 50 mg PO DAILY 08/15/20 [History Confirmed 10/25/20] metformin 1,000 mg PO BID 08/15/20 [History Confirmed 10/25/20] omeprazole 40 mg PO DAILY 08/15/20 [History Confirmed 10/25/20] pen needle, diabetic [BD Ultra-Fine Short Pen Needle] 08/15/20 [History Confirmed 10/25/20] trazodone 50 mg PO HS 08/15/20 [History Confirmed 10/25/20] ibuprofen 800 mg PO TID PRN #20 tablet 10/17/20 [Rx Confirmed 10/25/20] ofloxacin 10 drp RIGHT EAR DAILY 7 Days #5 ml 10/17/20 [Rx Confirmed 10/25/20] Active Medications Acetaminophen (Acetaminophen 325 Mg Tablet) 650 mg PO Q4H PRN PRN Reason: Pain Rated 1-3 or Fever Hydrocodone Bitart/Acetaminophen (Hydrocodone/Acetaminophen (*Crx) 5-325 Mg Tablet) 1 tab PO TID PRN PRN Reason: Pain 4-6 Last Admin: 10/25/20 20:43 Dose: 1 tab Documented by: Budesonide/Formoterol Fumarate (Budesonide/Form 160-4.5 Mcg (*Sp)) 2 puff INHALATION Q12HRT [facility] Dextrose (Dextrose 50% 25 Gm/50 Ml Syringe) 12.5 gm IV PUSH PRN PRN; Protocol PRN Reason: Hypoglycemia Fluticasone Propionate (Fluticasone Propionate 0.05% Na Spr 16 Gm Btl (*Bkc)) 1 spray NASAL DAILY [facility] Glucagon (Glucagon For Inj 1 Mg Vial) 1 mg IM PRN PRN; Protocol PRN Reason: Hypoglycemia Glucose (Glucose Oral Gel 15 Gm Of Glucse In 37.5 Gm Tube) 15 gm PO PRN PRN; Protocol PRN Reason: Hypoglycemia Glyburide (Glyburide 5 Mg Tablet) 5 mg PO DAILY@0800 [facility] Hydrochlorothiazide (Hydrochlorothiazide 12.5 Mg Capsule) 12.5 mg PO DAILY [facility] Hydromorphone HCl (Hydromorphone Hcl Inj (*Crx) 1 Mg/Ml Syr) 1 mg IV PUSH Q3H PRN PRN Reason: Pain Rated 7-10 Last Admin: 10/26/20 05:54 Dose: 1 mg Documented by: Cefepime HCl (Maxipime 1 Gm/D5w 50 Ml) 1 gm in 50 mls @ 100 mls/hr IVPB Q12H [facility] Last Infusion: 10/26/20 08:20 Dose: Infused Documented by: Dextrose (Dextrose 5% 1,000 Ml) 1,000 mls @ 100 mls/hr IVPB PRN PRN; Protocol PRN Reason: Hypoglycemia Ibuprofen (Ibuprofen 400 Mg Tablet) 800 mg PO TID PRN PRN Reason: pain 1-3 Last Admin: 10/25/20 23:06 Dose: 800 mg Documented by: Insulin Aspart (Insulin Aspart (*Bkc) 100 Units/Ml) 3 - 6 units SUB-Q TIDWM [facility]; Protocol Last Admin: 10/26/20 07:49 Dose: Not Given Documented by: Insulin Glargine (Insulin Glargine (*Bkc) 100 Units/Ml) 60 units SUB-Q DAILY [facility] Losartan Potassium (Losartan Potassium 50 Mg Tablet) 50 mg PO DAILY [facility] Metformin HCl (Metformin Hcl 500 Mg Tablet) 1,000 mg PO BIDWM [facility] Non-Formulary Medication (Dulaglutide [Trulicity]) 1.5 mg SUB-Q USEASDIRECTD [facility] Stop: 11/24/20 18:20 Ofloxacin (Ofloxacin 0.3% Ophth Soln 5 Ml Btl) 5 drop RIGHT EAR BID [facility] Pantopra
[2020-10-26] MEDS: LOSARTAN POTASSIUM 50 MG TABLET PO (08:53)
[2020-10-26] MEDS: hydroCHLOROthiazide 12.5 MG CAPSULE PO (08:53)
[2020-10-26] MEDS: PANTOPRAZOLE 40 MG TABLET PO ×2 (08:53→20:25)
[2020-10-26] MEDS: glyBURIDE 5 MG TABLET PO (08:54)
[2020-10-26] MEDS: INSULIN GLARGINE (*BKC) 100 UNITS/ML 60 UNITS SUB-Q (09:06)
[2020-10-26 09:44] VITALS: O2SAT 92
[2020-10-26] MEDS: HYDROcodone/acetaminophen (*CRX) 5-325 MG TABLET 1 TAB PO (10:06)
[2020-10-26 12:25] LABS: Glucose Point of Care 198 mg/dl (65-105)
[2020-10-26 14:00] VITALS: BP 155/79; PULSE 83; RESP 18; TEMP 36.2; O2SAT 95
--- NOTE | 2020-10-26 15:37 | PM.IMPN ---
Progress Note: A&P Assessment and Plan (1) Mastoiditis of right side: Code(s): H70.91 - Unspecified mastoiditis, right ear Status: Acute Assessment and Plan: Management per the primary service, Dr Milton. I am told plan is for transfer to [facility]. Patient had bilateral myringotomy with T tube placement 10/06/20, developed drainage and pain and returned to ER. Now found to have acute right mastoiditis POD#1 s/p right cortical mastoidotomy with drain placement by Dr Lazar. Remains on IV cefepime. (2) Clancy's palsy: Code(s): G51.0 - Clancy's palsy Status: Acute Assessment and Plan: Right-sided Clancy palsy that has developed over the last 3 days prior to arrival, likely related to above. (3) Type 2 diabetes mellitus: Code(s): E11.9 - Type 2 diabetes mellitus without complications Status: Acute Assessment and Plan: Hgb A1c 8.7%. Patient admits he rarely checks his blood sugars at home, almost never. Educated on the importance of tight glycemic control for his overall health and to help promote wound healing. Continue basal insulin (at a lower dose) and glyburide. Hold metformin as he received contrast on arrival. Continue to monitor with accu-cheks and adjust treatment as needed, cover with SSI. (4) Gastroesophageal reflux: Code(s): K21.9 - Gastro-esophageal reflux disease without esophagitis Status: Acute Assessment and Plan: No acute issues. Continue PPI. (5) Hypertension: Code(s): I10 - Essential (primary) hypertension Status: Chronic Assessment and Plan: BPs reviewed, variable. Some intermittent elevations may be related to pain. Continue home HCTZ, losartan. Monitor BP and adjust treatment as needed. (6) Renal failure: Code(s): N19 - Unspecified kidney failure Status: Chronic Assessment and Plan: Cr 1.1 today, stable. Suspect some degree of CKD based on previous labs and history of DM, HTN. Subjective Date/time seen: 10/26/20 1400 Interval history: Mr. Nathan is a 55yo M with acute right mastoiditis seen in follow up POD#1 s/p right cortical mastoidotomy. He is having issues with pain to right ear/mastoid today. Facial paralysis to right side still present. He denies chest pain, shortness of breath, palpitations, nausea or vomiting. Denies difficulty swallowing or issues controlling secretions. Review of Systems Review of Systems: All systems reviewed & are unremarkable except as noted in HPI and below Exam Narrative: Exam Narrative: General: Male resting sitting up in bed in no acute distress. HEENT: Normocephalic, EOMI, oral mucosa moist. Postoperative dressing behind left ear with some dried blood. Cardiovascular: Rate and rhythm are regular. Respiratory: Lungs clear to auscultation bilaterally. Respirations even and non-labored. Tolerating room air. Abdomen: Soft, non-tender, non-distended, bowel sounds present. Extremities: Peripheral pulses intact. No edema or pain to palpation. Neuro: Awake and alert; answering questions appropriately. Right cranial nerve VII palsy involving the right forehead, eyelid and lip. Speech is clear. Objective Data Vital Signs Vital Signs: Vital Signs - 24 hr 10/25/20 15:45 10/25/20 17:07 10/25/20 17:20 Temperature 96.9 F L Pulse Rate 83 79 76 Respiratory Rate 18 19 14 Blood Pressure 164/86 H 168/89 H 153/90 H Pulse Oximetry 95 100 100 10/25/20 17:35 10/25/20 17:50 10/25/20 18:05 Temperature Pulse Rate 76 77 77 Respiratory Rate 12 12 13 Blood Pressure 166/90 H 164/94 H 156/93 H Pulse Oximetry 99 98 97 10/25/20 18:30 10/25/20 18:45 10/25/20 19:15 Temperature 97.4 F L 97.4 F L 97.2
[2020-10-26 18:13] LABS: Glucose Point of Care 205 mg/dl (65-105)
[2020-10-26] MEDS: INSULIN ASPART (*BKC) 100 UNITS/ML SUB-Q (18:28)
[2020-10-26] MEDS: traZODone HCL 50 MG TABLET PO (20:25)
[2020-10-26 22:00] VITALS: BP 155/75; PULSE 93; RESP 18; TEMP 37; O2SAT 91
[2020-10-27] MEDS: HYDROmorphone HCL INJ (*CRX) 1 MG/ML SYR IV PUSH ×2 (00:47→04:17)
[2020-10-27 03:16] LABS: Glucose Point of Care 261 mg/dl (65-105)
[2020-10-27 06:00] VITALS: BP 143/77; PULSE 92; RESP 20; TEMP 37.2; O2SAT 95
[2020-10-27] MEDS: HYDROcodone/acetaminophen (*CRX) 5-325 MG TABLET PO ×4 (06:24→22:24)
[2020-10-27] MEDS: FLUTICASONE PROPIONATE 0.05% NA SPR 16 GM BTL (*BKC) 1 SPRAY NASAL (07:55)
[2020-10-27] MEDS: LOSARTAN POTASSIUM 50 MG TABLET PO (07:56)
[2020-10-27] MEDS: glyBURIDE 5 MG TABLET PO (07:56)
[2020-10-27] MEDS: hydroCHLOROthiazide 12.5 MG CAPSULE PO (07:56)
[2020-10-27] MEDS: CIPROFLOXACIN 250 MG TABLET 750 MG PO ×2 (07:57→21:10)
[2020-10-27] MEDS: PANTOPRAZOLE 40 MG TABLET PO ×2 (07:57→21:10)
[2020-10-27] MEDS: OFLOXACIN 0.3% OPHTH SOLN 5 ML BTL 5 DROP RIGHT EAR ×2 (07:57→18:30)
[2020-10-27] MEDS: INSULIN GLARGINE (*BKC) 100 UNITS/ML 30 UNITS SUB-Q (08:04)
[2020-10-27 08:09] LABS: Glucose Point of Care 200 mg/dl (65-105)
--- NOTE | 2020-10-27 10:29 | PM.IMPN ---
Progress Note: A&P Assessment and Plan (1) Mastoiditis of right side: Code(s): H70.91 - Unspecified mastoiditis, right ear Status: Acute Assessment and Plan: Management per the primary service, Dr Milton. I am told plan is for transfer to [facility] pending bed availability. Patient had bilateral myringotomy with T tube placement 10/06/20, developed drainage and pain and returned to ER. Now found to have acute right mastoiditis POD#2 s/p right cortical mastoidotomy with drain placement by Dr Lazar. (2) Clancy's palsy: Code(s): G51.0 - Clancy's palsy Status: Acute Assessment and Plan: Right-sided Clancy palsy that has developed over the last 3 days prior to arrival, likely related to above. (3) Type 2 diabetes mellitus: Code(s): E11.9 - Type 2 diabetes mellitus without complications Status: Acute Assessment and Plan: Hgb A1c 8.7%. Patient admits he rarely checks his blood sugars at home, almost never. Educated on the importance of tight glycemic control for his overall health and to help promote wound healing. Continue basal insulin (at a lower dose) and glyburide. Hold metformin as he received contrast on arrival. Continue to monitor with accu-cheks and adjust treatment as needed, cover with SSI. (4) Gastroesophageal reflux: Code(s): K21.9 - Gastro-esophageal reflux disease without esophagitis Status: Acute Assessment and Plan: No acute issues. Continue PPI. (5) Hypertension: Code(s): I10 - Essential (primary) hypertension Status: Chronic Assessment and Plan: BPs reviewed, variable. Some intermittent elevations may be related to pain. Continue home HCTZ, losartan. Monitor BP and adjust treatment as needed. (6) Renal failure: Code(s): N19 - Unspecified kidney failure Status: Chronic Assessment and Plan: Cr stable. Suspect some degree of CKD based on previous labs and history of DM, HTN. Additional Plan Thank you for allowing us to participate in this patient's care. Will follow with you while he is here. Subjective Date/time seen: 10/27/20 1000 Interval history: Mr. Nathan is a 55yo M with acute right mastoiditis seen in follow up POD#2 s/p right cortical mastoidotomy. His pain is improved compared to yesterday. I notice more mobility in the right side of his face today. He denies chest pain, shortness of breath, palpitations, nausea or vomiting. Review of Systems Review of Systems: All systems reviewed & are unremarkable except as noted in HPI and below Exam Narrative: Exam Narrative: General: Male resting sitting up in bed in no acute distress. HEENT: Normocephalic, EOMI, oral mucosa moist. Sutures to right mastoid with niki drain intact. Cardiovascular: Rate and rhythm are regular. Respiratory: Lungs clear to auscultation bilaterally. Respirations even and non-labored. Tolerating room air. Abdomen: Soft, non-tender, non-distended, bowel sounds present. Extremities: Peripheral pulses intact. No edema or pain to palpation. Neuro: Awake and alert; answering questions appropriately. Right cranial nerve VII palsy involving the right forehead, eyelid and lip. Speech is clear. Objective Data Vital Signs Vital Signs: Vital Signs - 24 hr 10/26/20 14:00 10/26/20 22:00 10/27/20 06:00 Temperature 97.2 F L 98.6 F 98.9 F Pulse Rate 83 93 92 Respiratory Rate 18 18 20 Blood Pressure 155/79 H 155/75 H 143/77 H Pulse Oximetry 95 91 95 Intake/Output Intake/Output: Intake & Output 10/24/20 10/25/20 10/26/20 10/27/20 23:59 23:59 23:59 23:59 Intake Total 750 1300 300 Output Total 800 1000 Balance 750 500 -700 Meds/Results Medicati
[2020-10-27 12:38] LABS: Glucose Point of Care 228 mg/dl (65-105)
[2020-10-27] MEDS: INSULIN ASPART (*BKC) 100 UNITS/ML SUB-Q ×2 (12:52→18:30)
[2020-10-27 14:00] VITALS: BP 132/59; PULSE 99; RESP 20; TEMP 36.5; O2SAT 98
[2020-10-27 17:38] LABS: Glucose Point of Care 262 mg/dl (65-105)
[2020-10-27 20:56] VITALS: O2SAT 92
[2020-10-27] MEDS: traZODone HCL 50 MG TABLET PO (21:10)
[2020-10-27 21:25] LABS: Glucose Point of Care 310 mg/dl (65-105)
[2020-10-27 21:55] VITALS: BP 157/77; PULSE 90; RESP 18; TEMP 36.7; O2SAT 91
== END 2020-10-27 22:51 | disposition short-term general hospital (02) | DRG 136 ==
LOC: ANHED 15:02 → ANHSURGERY 15:31 → ANH3MEDSUR 18:22
PROVIDERS: Physician Assistant; Admitting Provider Otolaryngology; Emergency Provider Emergency Medicine; PCP Registered Nurse; Visit Provider Otolaryngology
PROC: 09D Ear, Nose, Sinus, Extraction (ICD-10-PCS; CPT 69641; principal; 2020-10-25 16:00)
DX: H70.001 Acute mastoiditis without complications, right ear (principal); N19 Unspecified kidney failure; G89.18 Other acute postprocedural pain; G51.0 Bell's palsy; E11.42 Type 2 diabetes mellitus with diabetic polyneuropathy; J44.9 Chronic obstructive pulmonary disease, unspecified; I10 Essential (primary) hypertension; K21.9 Gastro-esophageal reflux disease without esophagitis; Z79.4 Long term (current) use of insulin; Z79.899 Other long term (current) drug therapy; Z85.118 Personal history of other malignant neoplasm of bronchus and lung
CPT/HCPCS: 36415; 70481; 80048; 82948; 83036; 83735; 85025; 85027; 85610; 85652; 85730; 86140; 87040; 94640; 96365; 96375; 99285; A9270; J0131; J0171; J0330; J0692; J1170; J1815; J2250; J2270; J2370; J2405; J2704; J3010; J7120; Q9967

== ENCOUNTER 2021-07-07 18:37 | Emergency (ER) | payer MEDICARE, MEDICAID, SELFPAY ==
--- NOTE | ~2021-07-07 | XR_ITS ---
EXAMINATION: XR forearm LT 2V INDICATION: Left forearm pain TECHNIQUE: Two views of the left forearm are obtained. COMPARISON: None available FINDINGS: Bone alignment is normal. There is no fracture. 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 Calcified atherosclerosis is noted. The soft tissues are unremarkable. IMPRESSION: 1. No acute osseous abnormality. Reviewed, dictated and finalized at location F. [employer]
[2021-07-07 18:42] VITALS: BP 140/100; PULSE 77; RESP 17; TEMP 36.8; O2SAT 99
[2021-07-07 19:30] VITALS: BP 108/59; PULSE 73; RESP 16; O2SAT 100
--- NOTE | 2021-07-07 19:34 | ED.UPPEXIN ---
HPI - Extremity Injury (Upper) General Chief Complaint: Extremity Injury, Upper Stated Complaint: left arm pain Time Seen by Provider: 07/07/21 19:07 Source: patient Mode of arrival: ambulatory Limitations: no limitations History of Present Illness HPI narrative: Patient is a 56-year-old male complaining of left forearm pain, 6 out of 10, dull, worse with palpation and movement, started after he fell prior to arrival. Patient states that he slipped on ice landed on his left forearm. Patient denies any head, neck, chest, back, pelvis, hip or any other extremity pain/injury. Related Data Home Medications Medication Instructions Recorded Confirmed Basaglar KwikPen U-100 Insulin 1 unit SUBCUT DAILY 08/15/20 10/25/20 Breo Ellipta 1 inh INHALATION DAILY 08/15/20 10/25/20 Trulicity 1.5 mg SUBCUT USEASDIRECTD 08/15/20 10/25/20 fluticasone propionate [Flonase 1 spray INTRANASAL DAILY 08/15/20 10/25/20 Allergy Relief] glyburide 5 mg PO BID 08/15/20 10/25/20 hydrochlorothiazide 12.5 mg PO DAILY 08/15/20 10/25/20 hydrocodone-acetaminophen 1 tablet PO TID PRN 08/15/20 10/25/20 losartan 50 mg PO DAILY 08/15/20 10/25/20 metformin 1,000 mg PO BID 08/15/20 10/25/20 omeprazole 40 mg PO DAILY 08/15/20 10/25/20 pen needle, diabetic [BD 08/15/20 10/25/20 Ultra-Fine Short Pen Needle] trazodone 50 mg PO HS 08/15/20 10/25/20 Allergies Allergy/AdvReac Type Severity Reaction Status Date / Time No Known Allergies Allergy Verified 10/25/20 14:18 Review of Systems Review of Systems: Per HPI All systems reviewed & are unremarkable except as noted in HPI and below PMFSH Past Medical History Medical History Diabetic peripheral neuropathy Gastroesophageal reflux History of kidney stones History of lung cancer Patient reportedly treated it himself with marijuana. Hypertension Type 2 diabetes mellitus Surgical History Surgical History History of appendectomy History of orchiectomy Secondary to left-sided testicular torsion. History of right mastoidectomy (10/25/20) History of tympanoplasty Family History Family History Other No significant family history Social History Social History Social History: Surrogate decision maker: Nanci Nathan, spouse. Code status: Full code. Smoking status: Never smoker Alcohol intake: never Substance use type: marijuana Other substance usage details: Patient uses medical marijuana. Additional living arrangements comments: Resides in [place] with his . Additional occupation/education comments: Disabled. Gender identity (if verbalized by the patient): Male Spiritual care concerns: No Exam Const: General: no acute distress and alert Orientation/consciousness: patient oriented x3 HENMT: Head: normal to inspection Eyes: Conjunctivae: conjunctivae normal Neck: Neck: normal visual inspection Resp: Effort & Inspection: normal respiratory effort Skin: General skin exam: normal color Neuro: General: patient oriented x3 and moves all extremities Extrem: General: normal to inspection Other: Negative for any deformity or significant swelling. Pain on range of motion of the left forearm. Pain on palpation of left forearm. Neurovascular is intact Course Vital Signs Vital signs: Vital Signs Temperature 36.8 C 07/07/21 18:42 Pulse Rate 77 07/07/21 18:42 Respiratory Rate 17 07/07/21 18:42 Blood Pressure 140/100 H 07/07/21 18:42 Pulse Oximetry 99 07/07/21 18:42 Temperature 36.8 C 07/07/21 18:42 Pulse Rate 73 07/07/21 19:30 Respiratory Rate 16 07/07/21 19:30 Blood Pressure 108/59 L 07/07/21 19:30 Pulse Oximetry 100 07/07/21 19:30 MDM - Extremity Injury (Upper) Differential Diagnosis Dif
[2021-07-07] MEDS: CYCLOBENZAPRINE HCL 10 MG TABLET PO (20:52)
[2021-07-07] MEDS: IBUPROFEN 400 MG TABLET 800 MG PO (20:52)
[2021-07-07 20:58] VITALS: BP 140/78; PULSE 71; RESP 16; O2SAT 99
--- NOTE | 2021-07-07 21:33 | PC.NURSE ---
Patient pain medicine just before he left Pain was at a 7 when he left.
== END 2021-07-07 21:02 | disposition home or self-care (01) ==
PROVIDERS: Emergency Provider Emergency Medicine; PCP Registered Nurse
DX: E11.42 Type 2 diabetes mellitus with diabetic polyneuropathy (principal); S50.12XA Contusion of left forearm, initial encounter; I10 Essential (primary) hypertension; K21.9 Gastro-esophageal reflux disease without esophagitis; Z87.442 Personal history of urinary calculi; Z85.118 Personal history of other malignant neoplasm of bronchus and lung; Z79.4 Long term (current) use of insulin; Z79.899 Other long term (current) drug therapy; Z79.84 Long term (current) use of oral hypoglycemic drugs; W19.XXXA Unspecified fall, initial encounter
CPT/HCPCS: 73090; 99283; A9270

== ENCOUNTER 2022-05-17 18:57 | Emergency (ER) | payer MEDICARE, MEDICAID, SELFPAY ==
--- NOTE | ~2022-05-17 | CT_ITS ---
EXAMINATION: CT IAC/mastoids BI w con DATE: 05/17/2022 22:34 INDICATION: Left ear pain. TECHNIQUE: Computed tomography (CT) of the temporal bones was performed without intravenous contrast. Automated exposure control and iterative reconstruction technique were employed. The dose-length pro duct was 454.52 mGy-cm. COMPARISON: CT temporal bone 10/25/2020 FINDINGS: There is mild mucosal thickening in the paranasal sinuses. RIGHT TEMPORAL BONE: The internal auditory canal, cochlea, vestibule, semicircular canals, vestibular aqueduct, carotid ca nal, jugular bulb, and facial nerve course are normal. There is material in the tympanic cavity abutt ing the ossicles including in Prussak space and abutting the tympanic membrane. Scutum is normal. The re is a small right mastoid effusion. There is sclerosis of the hernandez of the mastoid air cells. The e xternal auditory canal is normal. LEFT TEMPORAL BONE: The internal auditory canal, cochlea, vestibule, semicircular canals, vestibular aqueduct, carotid ca nal, jugular bulb, and facial nerve course are normal. There is material in the tympanic cavity inclu ding around the ossicles and in Prussak space and abutting the tympanic membrane. A myringotomy tube is noted. There is near complete opacification of the mastoid air cells. There is sclerosis of the wa lls of the mastoid air cells. Material lines the external auditory canal with complete occlusion of t he lateral external auditory canal. IMPRESSION: 1. Chronic bilateral otomastoiditis with improvement on the right and worsening on the left from 10/25. 2. Material lining the left external auditory canal with complete occlusion of the lateral external a uditory canal, consistent with otitis externa. Reviewed, dictated and finalized at location A. A/INSTRUCTIONAL DESIGNER IMPRESSION: 1. Chronic bilateral otomastoiditis with improvement on the right and worsening on the left from 10/25/20. 2. Material lining the left external auditory canal with complete occlusion of the lateral external auditory canal, consistent with otitis externa.
[2022-05-17 19:22] VITALS: BP 134/65; PULSE 99; RESP 18; TEMP 36.6; O2SAT 99
--- NOTE | 2022-05-17 20:18 | ED.EAR ---
HPI - Ear Problem General Chief complaint: Ear <Елена Rodgers MD - Last Filed: 05/17/22 22:27> Stated complaint: left ear pain <Елена Rodgers MD - Last Filed: 05/17/22 22:27> Time Seen by Provider: 05/17/22 20:17 <Елена Rodgers MD - Last Filed: 05/17/22 22:27> Source: patient <Елена Rodgers MD - Last Filed: 05/17/22 22:27> Mode of arrival: ambulatory <Елена Rodgers MD - Last Filed: 05/17/22 22:27> Limitations: no limitations <Елена Rodgers MD - Last Filed: 05/17/22 22:27> History of Present Illness HPI Narrative: Patient is a 57-year-old male with a history of type 2 diabetes, mastoidectomy of the right ear in 2020, presenting to the emergency department for evaluation of left ear pain. Patient reports that he was placed on ofloxacin otic drops for left ear pain, after diagnosed with otitis externa. Patient reports ear swelling, pain behind the ear and radiating to his neck. Patient reports mild headache. He denies fever, chills, nausea or vomiting. He does report discharge from the ear. He reports ear fullness and difficulty hearing. Patient states this seems similar to bout of mastoiditis in the past. I reviewed his emergency department chart in which I did evaluate the patient with the physician graduate teaching assistant at that time. Patient was admitted at that time for mastoidectomy but ultimately did require transfer to a tertiary care facility. <Елена Rodgers MD - Last Filed: 05/17/22 22:27> Related Data Home medications: Home Medications Medication Instructions Recorded Confirmed dulaglutide 1.5 mg/0.5 mL 1.5 mg subcut USEASDIRECTD 08/15/20 10/25/20 subcutaneous pen injector (Trulicity) fluticasone furoate 200 1 inh inhalation DAILY 08/15/20 10/25/20 mcg-vilanterol 25 mcg/dose inhalation powder (Breo Ellipta) fluticasone propionate 50 1 spray intranasal DAILY 08/15/20 10/25/20 mcg/actuation nasal spray,suspension (Flonase Allergy Relief) glyburide 5 mg tablet 5 mg PO BID 08/15/20 10/25/20 hydrochlorothiazide 12.5 mg tablet 12.5 mg PO DAILY 08/15/20 10/25/20 hydrocodone 5 mg-acetaminophen 325 1 tablet PO TID PRN Pain 08/15/20 10/25/20 mg tablet insulin glargine 100 unit/mL (3 1 unit subcut DAILY 08/15/20 10/25/20 mL) subcutaneous pen (Basaglar KwikPen U-100 Insulin) losartan 50 mg tablet 50 mg PO DAILY 08/15/20 10/25/20 metformin 1,000 mg tablet 1,000 mg PO BID 08/15/20 10/25/20 omeprazole 40 mg capsule,delayed 40 mg PO DAILY 08/15/20 10/25/20 release pen needle, diabetic 31 gauge x 08/15/20 10/25/2009/25 (BD Ultra-Fine Short Pen Needle) trazodone 50 mg tablet 50 mg PO HS 08/15/20 10/25/20 <Елена Rodgers MD - Last Filed: 05/17/22 22:27> Allergies/adverse reactions: Allergies Allergy/AdvReac Type Severity Reaction Status Date / Time No Known Allergies Allergy Verified 10/25/20 14:18 <Елена Rodgers MD - Last Filed: 05/17/22 22:27> Review of Systems Review of Systems: CONSTITUTIONAL: Denies fever HEENT: Left ear pain, left ear discharge CARDIOVASCULAR: Denies chest pain RESPIRATORY: Denies cough or dyspnea. GASTROINTESTINAL: Denies abdominal pain SKIN: Denies rash MUSCULOSKELETAL: Denies back pain NEUROLOGIC: Denies headache <Елена Rodgers MD - Last Filed: 05/17/22 22:27> [facility] Past Medical History Medical History: Medical History Diabetic peripheral neuropathy Gastroesophageal reflux History of kidney stones History of lung cancer Patient reportedly treated it himself with marijuana. Hypertension Type 2 diabetes mellitus <Елена Rodgers MD - Last Filed: 05/17/22 22:27> Surgical History Surgical History: Surgical History History of appendectomy History of orchiectomy Secondary to left-sided testicular torsion. History of right mastoidectomy (
[2022-05-17 21:40] LABS: Basophils Absolute Auto 0.1 K/mm3 (0.0-0.1); Basophils Percent Auto 0.7 % (0.2-1.2); Eosinophils Absolute Auto 0.2 K/mm3 (0-0.3); Eosinophils Percent Auto 2.4 % (0-4.4); Hematocrit 39.6 % (42.0-52.0); Hemoglobin 13.1 g/dL (14.0-18.0); Immature Granulocyte Absolute 0.02 K/mm3 (0.00-0.031); Immature Granulocyte Percent A 0.2 % (0-0.5); Lymphocytes Absolute Auto 1.75 K/mm3 (0.9-3.2); Lymphocytes Percent Auto 20.3 % (18.3-44.2); Mean Corpuscular HGB Conc 33.1 g/dl (32-36); Mean Corpuscular Hemoglobin 30.7 pg (26-34); Mean Corpuscular Volume 92.7 fl (80-100); Mean Platelet Volume 12.1 fl (7.4-10.4); Monocytes Absolute Auto 0.7 K/mm3 (0.1-0.6); Monocytes Percent Auto 7.5 % (2.6-8.5); Neutrophils Absolute Auto 5.9 K/mm3 (1.3-6.7); Neutrophils Percent Auto 68.9 % (45.5-73.1); Platelet Count Result 128 k/mm3 (150-375); Red Blood Count 4.27 M/mm3 (4.6-6.20); Red Cell Distribution Width 12.4 % (11.5-14.5); White Blood Count 8.6 K/mm3 (4.5-10.0)
[2022-05-17 22:07] LABS: Erythrocyte Sedimentation Rate 79 mm/hr (0-20)
[2022-05-17] MEDS: oxyCODONE/ACETAMINOPHEN (*CRX) 5-325 MG TABLET 1 TABLET PO (22:11)
[2022-05-17 22:18] LABS: Anion Gap 11 mmol/L (8-16); Blood Urea Nitrogen 38 mg/dL (9-20); CRP 1.3 mg/dL (<1.0); Calcium 9.5 mg/dL (8.4-10.2); Carbon Dioxide 25 mmol/L (22-30); Chloride 97 mmol/L (98-107); Estimated CRCL calculation 72 ml/min; Estimated Glomerular Filt Rate 52; Glucose 509 mg/dL (65-110); Potassium 4.4 mmol/L (3.4-5.0); Sodium 133 mmol/L (137-145)
[2022-05-17] MEDS: SODIUM CHLORIDE 0.9% IV 1,000 ML 999 ML IV CONT ×2 (23:15→23:40)
[2022-05-18 00:37] LABS: Glucose Point of Care 337 mg/dl (65-105)
[2022-05-18] MEDS: INSULIN HUMAN REGULAR (*BKC) 100 UNITS/ML IV PUSH (00:48)
[2022-05-18] MEDS: CIPROFLOXACIN 500 MG TAB PO (01:37)
[2022-05-18] MEDS: oxyCODONE/ACETAMINOPHEN (*CRX) 5-325 MG TABLET 1 TABLET PO (01:38)
[2022-05-18 01:50] LABS: Glucose Point of Care 205 mg/dl (65-105)
== END 2022-05-18 02:17 | disposition home or self-care (01) ==
PROVIDERS: Emergency Medicine; Emergency Provider Preventive Medicine Aerospace Medicine; PCP Registered Nurse
DX: H60.92 Unspecified otitis externa, left ear (principal); E11.65 Type 2 diabetes mellitus with hyperglycemia; E11.42 Type 2 diabetes mellitus with diabetic polyneuropathy; I10 Essential (primary) hypertension; K21.9 Gastro-esophageal reflux disease without esophagitis; Z87.442 Personal history of urinary calculi; Z85.118 Personal history of other malignant neoplasm of bronchus and lung; Z79.84 Long term (current) use of oral hypoglycemic drugs; Z79.4 Long term (current) use of insulin; Z90.79 Acquired absence of other genital organ(s)
CPT/HCPCS: 36415; 70481; 80048; 82948; 85025; 85652; 86140; 96365; 96366; 96375; 99284; A9270; J0692; J1815; J7030; Q9967

== ENCOUNTER 2022-05-29 13:08 | Observation (INO) | payer MEDICARE, MEDICAID, SELFPAY ==
[2022-05-29] VITALS (30 sets, daily range): BP systolic 107–145; BP diastolic 57–91; PULSE 72–98; RESP 8–21; TEMP 36.5–36.7; O2SAT 96–100; BMI 33.4
--- NOTE | ~2022-05-29 | XR_ITS ---
Clinical Indication: Chest pain PA and lateral views of the chest: Comparison: None Findings: The lungs are clear, without evidence of focal consolidation or pleural effusion. Cardiome diastinal silhouette is within normal limits. Chronic rib fracture deformities noted. Impression: Clear lungs. Reviewed, dictated and finalized at [facility]. R ADVISER Impression: Clear lungs.
--- NOTE | ~2022-05-29 | CT_ITS ---
EXAMINATION: CTA chest DATE: 05/29/2022 14:08 INDICATION: Chest pain. Back pain. TECHNIQUE: Computed tomographic angiography (CTA) of the chest was performed with 100 mL Omnipaque-35 0 intravenous contrast. Automated exposure control and iterative reconstruction technique were employ ed. The dose-length product was 870.86 mGy-cm. Maximum intensity projection 3D-reconstructions of the aorta and other arteries were constructed by the technologist on a separate workstation. COMPARISON: Chest 2 views 05/29/22 FINDINGS: The lungs demonstrate minimal atelectasis. There is a 7 mm nodule in the lingula. No pleura l effusion. The heart size is normal. There are coronary artery calcifications. No pericardial effusi on. Thoracic aorta is normal in caliber. There is mild aortic atherosclerosis. No aneurysm or dissect ion. There is no pulmonary embolus. There is a 3.5 cm mass in right adrenal gland measuring soft tiss ue attenuation. The liver demonstrates surface nodularity, consistent with cirrhosis. There is a para umbilical portacaval shunt. There is a 14 mm hypodense mass in the spleen. There is mild periportal l ymphadenopathy, likely reactive. There are old healed bilateral rib fractures. There are bridging end plate osteophytes at multiple levels in the spine, consistent with diffuse idiopathic skeletal hypero stosis (DISH). There is mild chronic anterior wedging of multiple thoracic vertebral bodies. IMPRESSION: 1. Mild aortic atherosclerosis. No aneurysm or dissection. 2. 7 mm pulmonary nodule, probably benign. Noncontrast low-dose chest CT is recommended in 6 months. 3. Cirrhosis of the liver with portal venous hypertension. 4. 3.5 cm mass in right adrenal gland measuring soft tissue attenuation. In the absence of known tj gnancy, this finding is most likely an adenoma. If there is no outside imaging to confirm that this f inding is chronic, abdomen CT without and with contrast is recommended. 5. 14 mm splenic mass, probably benign. Abdomen MRI without and with contrast is recommended in 6 mon ths. Reviewed, dictated and finalized at location A. SUPERVISOR IMPRESSION: 1. Mild aortic atherosclerosis. No aneurysm or dissection. 2. 7 mm pulmonary nodule, probably benign. Noncontrast low-dose chest CT is rec ommended in 6 months. 3. Cirrhosis of the liver with portal venous hypertension. 4. 3.5 cm mass in right adrenal gland measuring soft tissue attenuation. In the absence of known malignancy, this finding is most likely an adenoma. If there is no outside imaging to confirm that this finding is chronic, abdomen CT witho ut and with contrast is recommended. 5. 14 mm splenic mass, probably benign. Abdomen MRI without and with contrast i s recommended in 6 months.
--- NOTE | 2022-05-29 13:09 | ECG_ITS ---
Measurements Intervals [place] Rate: 84 P: 21 MO: 174 QRS: -8 QRSD: 148 T: 20 QT: 400 QTc: 476 Interpretive Statements SINUS RHYTHM RIGHT BUNDLE BRANCH BLOCK ABNORMAL ECG COMPARED TO ECG 08/22/2020 09:47:59 NO SIGNIFICANT CHANGES Electronically Signed On 05-30-2022 9:36:52 ENGINE BUILDUP MECHANIC by Stuart Wheat D.O.
[2022-05-29 13:21] LABS: Basophils Absolute Auto 0.1 K/mm3 (0.0-0.1); Basophils Percent Auto 0.8 % (0.2-1.2); Eosinophils Absolute Auto 0.2 K/mm3 (0-0.3); Eosinophils Percent Auto 3.5 % (0-4.4); Hematocrit 42.1 % (42.0-52.0); Hemoglobin 13.8 g/dL (14.0-18.0); Immature Granulocyte Absolute 0.02 K/mm3 (0.00-0.031); Immature Granulocyte Percent A 0.3 % (0-0.5); Immature Platelet Fraction Pct 7.7 % (0.9-11.2); Lymphocytes Absolute Auto 2.22 K/mm3 (0.9-3.2); Lymphocytes Percent Auto 33.6 % (18.3-44.2); Mean Corpuscular HGB Conc 32.8 g/dl (32-36); Mean Corpuscular Hemoglobin 30.5 pg (26-34); Mean Corpuscular Volume 93.1 fl (80-100); Mean Platelet Volume 11.3 fl (7.4-10.4); Monocytes Absolute Auto 0.4 K/mm3 (0.1-0.6); Monocytes Percent Auto 6.7 % (2.6-8.5); Neutrophils Absolute Auto 3.6 K/mm3 (1.3-6.7); Neutrophils Percent Auto 55.1 % (45.5-73.1); Platelet Count Result 127 k/mm3 (150-375); Red Blood Count 4.52 M/mm3 (4.6-6.20); Red Cell Distribution Width 12.7 % (11.5-14.5); White Blood Count 6.6 K/mm3 (4.5-10.0)
[2022-05-29 13:29] LABS: Alanine Aminotransferase 39 U/L (6-50); Albumin Level 4.4 g/dL (3.5-5.1); Alkaline Phosphatase 92 U/L (38-126); Anion Gap 11 mmol/L (8-16); Aspartate Amino Transferase 37 U/L (17-59); Bilirubin,Total 0.6 mg/dL (0.2-1.3); Blood Urea Nitrogen 38 mg/dL (9-20); Calcium 9.5 mg/dL (8.4-10.2); Carbon Dioxide 25 mmol/L (22-30); Chloride 98 mmol/L (98-107); Estimated CRCL calculation 77 ml/min; Estimated Glomerular Filt Rate 57; Glucose 164 mg/dL (65-110); Lipase 208 U/L (23-300); Sodium 134 mmol/L (137-145)
[2022-05-29 13:33] LABS: INR 1.1; Prothrombin Time 13.4 Seconds (11.1-14.7)
[2022-05-29] MEDS: ASPIRIN 81 MG CHEWABLE TABLET 324 MG PO (13:33)
[2022-05-29 13:34] LABS: Partial Thromboplastin Time 25.2 SECONDS (22.3-36.8)
[2022-05-29 13:40] LABS: Troponin I < 0.012 ng/mL (0.000-0.034)
--- NOTE | 2022-05-29 13:59 | ED.CHESTPAIN ---
HPI - Chest Pain General Chief Complaint: Chest Pain Stated Complaint: Chest Pain, dizziness Time Seen by Provider: 05/29/22 13:31 History of Present Illness HPI narrative: Patient is a 57-year-old male with a history of hypertension, diabetes presenting with chest pain. Patient states that he was working and standing next to his truck when he suddenly felt lightheaded and generally weak. States that both of his knees buckled and he fell forward against his car. At the same time he was experiencing sharp left-sided chest pain that radiated to his left shoulder associated with shortness of breath. Patient also reports some nausea and diaphoresis. States that he continues to have 6-7 out of 10 sharp chest pain. He denies aggravating or alleviating factors. States that he still feels slightly lightheaded as well as generally weak. He denies fevers, headache, numbness or weakness, palpitations, abdominal pain, vomiting, diarrhea, leg swelling. Related Data Home Medications Medication Instructions Recorded Confirmed fluticasone furoate 200 1 inh inhalation DAILY 08/15/20 05/29/22 mcg-vilanterol 25 mcg/dose inhalation powder (Breo Ellipta) hydrochlorothiazide 12.5 mg tablet 12.5 mg PO DAILY 08/15/20 05/29/22 insulin glargine 100 unit/mL (3 60 unit subcut HS 08/15/20 05/29/22 mL) subcutaneous pen (Basaglar KwikPen U-100 Insulin) losartan 50 mg tablet 50 mg PO DAILY 08/15/20 05/29/22 metformin 1,000 mg tablet 1,000 mg PO BID 08/15/20 05/29/22 pen needle, diabetic 31 gauge x 08/15/20 05/29/22 5/16 (BD Ultra-Fine Short Pen Needle) trazodone 50 mg tablet 50 mg PO HS 08/15/20 05/29/22 atorvastatin 20 mg tablet 20 mg PO DAILY 05/29/22 05/29/22 empagliflozin 25 mg tablet 25 mg PO DAILY 05/29/22 05/29/22 (Jardiance) gabapentin 100 mg capsule 200 mg PO TID 05/29/22 05/29/22 hydrocodone 7.5 mg-acetaminophen 1 tablet PO Q6H PRN Pain 05/29/22 05/29/22 325 mg tablet semaglutide 0.25 mg or 0.5 mg (2 0.5 mg subcut Q7D 05/29/22 05/29/22 mg/1.5 mL) subcutaneous pen injector (Ozempic) Allergies Allergy/AdvReac Type Severity Reaction Status Date / Time No Known Allergies Allergy Verified 10/25/20 14:18 Review of Systems Review of Systems: All systems reviewed & are unremarkable except as noted in HPI and below PMFSH Past Medical History Medical History Cirrhosis Noted on CT on 05/29/2022. Diabetic peripheral neuropathy Gastroesophageal reflux Gastroesophageal reflux disease History of kidney stones History of lung cancer Patient reports history of bilateral pulmonary nodule suspicious for cancer. They were never biopsied but presumed to be malignant. He completed a marijuana treatment and the nodules essentially resolved. Hypertension Myocardial infarction Patient reports having an DE in his 30s attributed to stress. Treated medically. No heart catheterization. Obstructive sleep apnea Type 2 diabetes mellitus Surgical History Surgical History History of appendectomy History of orchiectomy Secondary to left-sided testicular torsion. History of right mastoidectomy (10/25/20) History of tympanoplasty Family History Family History Mother Congestive heart failure Diabetes mellitus Sibling Diabetes mellitus Other No significant family history Social History Social History Social History: Surrogate decision maker: Janny Mae, friend. Code status: Full code. Smoking status: Never smoker Alcohol intake: current Drinks per week: 1 Substance use: former Substance use type: marijuana Other substance usage details: Patient uses medical marijuana. Lack of Transportation: No Lack of Food: Never True Current Housing: I Do Not Have Housing Concerned About Future Housing
[2022-05-29] MEDS: MORPHINE SULFATE (*CRX) 4 MG/ML INJ IV PUSH (14:12)
[2022-05-29] MEDS: ONDANSETRON INJ 4 MG/2 ML VIAL IV PUSH (14:12)
[2022-05-29 15:17] LABS: Influenza A QL RT-PCR Negative (Negative); Influenza B QL RT-PCR Negative (Negative); SARS-CoV-2 RNA PCR Negative
[2022-05-29 16:41] LABS: Troponin I < 0.012 ng/mL (0.000-0.034)
--- NOTE | 2022-05-29 17:00 | PM.IMHP ---
H&P: HPI History of Present Illness Date/Time: 05/29/22 17:00 Chief Complaint: Chest pain. Narrative: This is a 57-year-old male with reported history of AR in his 30s without intervention, hypertension, insulin dependent diabetes, and sleep apnea who presented to the ED for evaluation of chest pain. Today he went to drop off some scrap metal and while on loading his truck he suddenly began to feel lightheaded and dizzy and he tells me that his knees felt like Jell-O and he fell forward into the truck. He then developed a sharp pain in the left mid chest radiating to the left shoulder associated with cold sweats and nausea. Bystanders remarks that he looked extremely pale at that time. It was self-limiting and has not returned. He has not had similar symptoms. He denies syncope, focal weakness, paresthesias, palpitations, sensations of racing heart, shortness of breath, cough, vomiting, orthopnea, paroxysmal nocturnal dyspnea, and lower extremity edema. Vitals were stable on arrival to the ED. CTA of the chest showed no evidence of pulmonary embolism. There were multiple incidental findings on that CT however including mild aortic atherosclerosis, a 7 mm pulmonary nodule, cirrhosis with portal venous hypertension (no known history of such), a 3.5 cm right adrenal gland mass, and a 14 mm splenic mass. I have not been able to locate in EKG as of yet but ED physician remarked that there were no acute ST elevations or depressions. At the time my evaluation he has no significant complaints. Review of Systems Review of Systems: Twelve systems were reviewed. Weight has remained stable. No cold or flu symptoms. He has chronic GERD which is well controlled with medications. Recently had a left ear infection and he completed antibiotics but still has drops that he is using. He believes that his diabetes is well controlled. No known history of cirrhosis. Father had cirrhosis. He denies significant alcohol use. He has not had any swelling in his legs or abdomen to his knowledge. No jaundice or pruritus. No history of hepatitis. Except as documented, all other systems were reviewed and are negative. [facility] Past Medical History Medical History (Updated 05/29/22 @ 23:33 by Yomaira White PA-C) Cirrhosis Noted on CT on 05/29/2022. Diabetic peripheral neuropathy Gastroesophageal reflux Gastroesophageal reflux disease History of kidney stones History of lung cancer Patient reports history of bilateral pulmonary nodule suspicious for cancer. They were never biopsied but presumed to be malignant. He completed a marijuana treatment and the nodules essentially resolved. Hypertension Myocardial infarction Patient reports having an AR in his 30s attributed to stress. Treated medically. No heart catheterization. Obstructive sleep apnea Type 2 diabetes mellitus Surgical History Surgical History History of appendectomy History of orchiectomy Secondary to left-sided testicular torsion. History of right mastoidectomy (10/25/20) History of tympanoplasty Family History Family History Mother Congestive heart failure Diabetes mellitus Sibling Diabetes mellitus Other No significant family history Social History Social History (Updated 05/29/22 @ 23:30 by Yomaira White PA-C) Social History: Surrogate decision maker: Janny Mae, friend. Code status: Full code. Smoking status: Never smoker Alcohol intake: current Drinks per week: 1 Substance use: former Substance use type: marijuana Other substance usage details: Patient uses medical marijuana. Lack of Transportation: No Lack of Food: Never True Current Housing: I Do Not Have Housing Concerned About Future Housing: No Difficulty Paying Gas/Electric Bills: No Difficulty Paying for Meds: No Currently Unemployed: No Education: High School Di
[2022-05-29 20:05] LABS: Troponin I < 0.012 ng/mL (0.000-0.034)
--- NOTE | 2022-05-29 20:16 | ADMGEN ---
This patient, Vaibhav Nathan, was admitted to IMU Room 210-01 at 2015. Patient/family oriented to hospital policies and general routines including ID bracelet, bed and alarms, visiting hours, pain management, procedures, bathroom and other care routines, personal items, smoking policy, room service/diet, and visiting hours. Information on how to activate the Rapid Response Team has been discussed. Patient/Family are encouraged to report perceived risks to care and to ask questions if they do not understand what they are told or what they should do.
[2022-05-29 20:43] LABS: Glucose Point of Care 183 mg/dl (65-105)
[2022-05-30] VITALS (8 sets, daily range): BP systolic 111–121; BP diastolic 64–69; PULSE 72–88; RESP 0–20; TEMP 35.8–36.9; O2SAT 96–97
[2022-05-30] MEDS: INSULIN GLARGINE (*BKC) 100 UNITS/ML 60 UNITS SUB-Q (00:13)
[2022-05-30] MEDS: traZODone HCL 50 MG TABLET PO (00:14)
[2022-05-30 04:39] LABS: Hematocrit 36.7 % (42.0-52.0); Hemoglobin 12.1 g/dL (14.0-18.0); Immature Platelet Fraction Pct 8.8 % (0.9-11.2); Mean Corpuscular Hemoglobin 30.6 pg (26-34); Mean Corpuscular Volume 92.9 fl (80-100); Mean Platelet Volume 11.6 fl (7.4-10.4); Platelet Count Result 95 k/mm3 (150-375); Red Blood Count 3.95 M/mm3 (4.6-6.20); Red Cell Distribution Width 12.6 % (11.5-14.5)
[2022-05-30 04:49] LABS: Glucose Point of Care 65 mg/dl (65-105)
[2022-05-30 04:57] LABS: Alanine Aminotransferase 36 U/L (6-50); Albumin Level 3.9 g/dL (3.5-5.1); Alkaline Phosphatase 75 U/L (38-126); Anion Gap 6 mmol/L (8-16); Aspartate Amino Transferase 30 U/L (17-59); Bilirubin,Total 0.5 mg/dL (0.2-1.3); Blood Urea Nitrogen 38 mg/dL (9-20); Calcium 8.8 mg/dL (8.4-10.2); Carbon Dioxide 25 mmol/L (22-30); Chloride 103 mmol/L (98-107); Estimated CRCL calculation 77 ml/min; Estimated Glomerular Filt Rate 57; Glucose 64 mg/dL (65-110); Lipase 320 U/L (23-300); Magnesium 2.4 mg/dL (1.6-2.3); Potassium 3.4 mmol/L (3.4-5.0); Sodium 134 mmol/L (137-145)
[2022-05-30 05:18] LABS: Glucose Point of Care 143 mg/dl (65-105)
[2022-05-30 07:03] LABS: Free T4 Free Thyroxine Reflex 0.96 ng/dL (0.78-2.19)
[2022-05-30 07:49] LABS: Total Triiodothyronine (T3) 1.28 NG/ML (0.97-1.69)
--- NOTE | 2022-05-30 08:00 | ECHO_ITS ---
Patient Info Name: Vaibhav Nathan Age: 57 years : 1965 Gender: Male Ht: 72 in Wt: 260 lbs BSA: 2.49 m2 HR: 78 bpm BP: 111 / 64 mmHg Heart Rhythm: Sinus Rhythm Technical Quality: Fair Exam Date: 05/30/2022 8:47 AM Exam Location: [facility] Patient Status: Outpatient Admit Date: 05/29/2022 Staff Ordering Physician: Yomaira White PA-C Plant Maintenance Technician: Landy Fuentes RDCS Attending Provider: Consuelo Wright DO Referring Physician: Cindy RODRIGUEZ; Exam Type: CA echo dop color flow w con Study Info Indications R07.9 - Chest pain, unspecified Complete two-dimensional, color flow and Doppler transthoracic echocardiogram is performed with contrast to opacify the left ventricle and to improve the deliniation of the left ventricle endocardial borders. Contrast/Agitated Saline Contrast/Ag. Saline: Definity Amount: 3.00 ml Administered By: Landy Fuentes RDCS Existing IV Access: Yes IV Access Condition: patent with no signs of infiltration Summary 1. Left ventricular chamber dimension is normal. 2. Left ventricular systolic function is normal, estimated at 55-60%. 3. The left ventricular diastolic function is grade I diastolic dysfunction. 4. Right ventricular systolic function is normal. 5. No significant valvular disease. Left Ventricle Left ventricular chamber dimension is normal. Left ventricular systolic function is normal, estimated at 55-60%. There is no increased left ventricular wall thickness. The left ventricular diastolic function is grade I diastolic dysfunction. Right Ventricle Right ventricular chamber dimension is normal. Right ventricular systolic function is normal. Left Atria Left atrial chamber dimension is normal. Right Atria Right atrial chamber dimension is normal. Atrial Septum Intact interatrial septum visualized by color flow imaging. Aortic Valve The aortic valve is trileaflet. There is no aortic valve stenosis. There is no aortic valve regurgitation. Pulmonic Valve The pulmonic valve is not well visualized. Mitral Valve The mitral valve has normal leaflets. There is no mitral valve stenosis. There is trace mitral valve regurgitation. Tricuspid Valve The tricuspid valve leaflets are normal. There is no significant tricuspid valve stenosis. There is trace tricuspid valve regurgitation. Pericardium/Pleural There is trivial pericardial effusion. Aorta The aortic root size at the sinus of Valsalva is normal. Left Ventricular Outflow Tract Name Value Normal LVOT 2D LVOT Diameter 2.10 cm LVOT Doppler LVOT Peak Gradient 4 mmHg LVOT Mean Gradient 2 mmHg LVOT VTI 19.17 cm LVOT VTI/AV VTI Ratio 0.74 LVOT Stroke Volume 66.08 ml LVOT CO 4.96 l/min LVOT CI 1.99 L/min/m2 Pulmonic Valve Name
[2022-05-30] MEDS: EMPAGLIFLOZIN 25 MG TABLET PO (08:38)
[2022-05-30] MEDS: ATORVASTATIN 20 MG TABLET PO (08:39)
[2022-05-30] MEDS: GABAPENTIN 100 MG CAPSULE 200 MG PO ×2 (08:39→12:28)
[2022-05-30] MEDS: hydroCHLOROthiazide 12.5 MG CAPSULE PO (08:39)
[2022-05-30] MEDS: LOSARTAN POTASSIUM 50 MG TABLET PO (08:40)
[2022-05-30] MEDS: PERFLUTREN LIPID MICROSPHERES 1.5 ML VIAL DILUTED TO 10 ML TOTAL VOLUME IV PUSH (09:25)
--- NOTE | 2022-05-30 09:26 | IVDEFINITY ---
Prior to administration of IV Definity the patient was educated on the risks and benefits of the imaging enhancing agent including potential adverse side effects. The patient verbalized understanding. Allergies were verified. No exclusion criteria were identified and at least one of the following inclusion criteria were met: 1) physician request, 2) patient technically difficult to image (per the [place] [employer] of Echocardiography guidelines of two or more segments not discernable within the apical view), or 3) questionable left ventricular function. ?
--- NOTE | 2022-05-30 09:30 | PM.IMPN ---
Progress Note: A&P Assessment and Plan (1) Chest pain: Code(s): R07.9 - Chest pain, unspecified Status: Acute Assessment and Plan: Patient with chest pain on exertion that began with weakness in the legs then falliing forward on to his truck bed. he does have risk factors for CAD. Pain is palpable and atypical. Trop negative x3. EKG showing no acute changes. CTA was negative for pulmonary embolism. Symptoms not consistent with his typical GERD. Cardiology consulted and discussed with them. Plan for Echo today. If okay and not showing any concerning findings, then plan discharge with followup with Cards as outpatient. (2) Type 2 diabetes mellitus: Code(s): E11.9 - Type 2 diabetes mellitus without complications Status: Acute Assessment and Plan: The patient's blood glucose was reviewed on 05/30 Glucose remains well controlled. Continue AccuCheks covering with sliding scale. Hypoglycemia protocol available as needed. Continue current treatment plan. (3) Hypertension: Code(s): I10 - Essential (primary) hypertension Status: Chronic Assessment and Plan: Blood pressures were reviewed and they are stable. Continue antihypertensives and monitor. (4) Otitis media: Code(s): H66.90 - Otitis media, unspecified, unspecified ear Status: Acute Assessment and Plan: Patient is completed a course of oral antibiotics. Is finishing up his your drops. Still having pain in the left ear but canal clear and TM not consistent with recurent OM. Follow. (5) Cirrhosis: Code(s): K74.60 - Unspecified cirrhosis of liver Status: Acute Assessment and Plan: Incidental finding on CT today. Patient has no known history of cirrhosis. Will need close follow-up and workup as an outpatient. (6) Right adrenal mass: Code(s): E27.8 - Other specified disorders of adrenal gland Status: Acute Assessment and Plan: Incidental 3.5 cm mass in the right adrenal gland noted on chest CT. Likely adenoma given no known history of malignancy. No evidence of active lung CA by CT chest. He does have a 7mm nodule and these incidental findings need to be followed as outpatietn. (7) Pulmonary nodule: Code(s): R91.1 - Solitary pulmonary nodule Status: Acute Assessment and Plan: 7 mm pulmonary nodule noted on chest CT, probably benign. Recommend noncontrast low-dose chest CT in 6 months. As above (8) Splenic mass: Code(s): R16.1 - Splenomegaly, not elsewhere classified Status: Acute Assessment and Plan: 14 mm splenic mass noted on chest CT, likely benign. Recommend MRI with and without contrast in 6 months. As above. (9) Gastroesophageal reflux disease: Code(s): K21.9 - Gastro-esophageal reflux disease without esophagitis Status: Acute Assessment and Plan: Stable. Continue PPI. Subjective Date/time seen: 05/30/22 09:30 Interval history: 57yo male with hx of possible [place] in his 30's, HTN, DM and PAVAN here for chest pain. Assuming care. Chart reviewed. History was reviewed with the patient. He has not been having any chest pain home. Since admission however he has been having chest pain at rest lasting about a minute but no associated symptoms. He still having ear pain. He has finished the oral antibiotics but is still using the ear drops for the next few days with the last dosing through 06/01/2022. He has a history of mastoiditis. No history of cirrhosis. He rarely drinks alcohol. Exam Narrative: Gen - NARD HEENT - bilateral ear canal clear without erythema. TM's without evidence of infection Chest - CTA bilaterally, nml RR CV - RRR S1/S2. Telemetry showing no significant dysrhythmias Abd - Soft, NT/ND, Positive BS Ext - No pedal edema Psych - Nml mood and affect Skin - Warm and dry. Objective Data Vital Signs Vital Signs: Vital Signs - 24 hr
[2022-05-30] MEDS: FLUTICASONE/SALMETEROL 230-21 MCG INHALER 1 PUFF 2 PUFF INHALATION (09:32)
[2022-05-30 09:56] LABS: Cholesterol 166 mg/dL (0-200); HDL Direct 41 mg/dL; Triglycerides 223 mg/dL (<150)
[2022-05-30 10:07] LABS: LDL Cholesterol Direct 65 mg/dL
[2022-05-30 10:25] LABS: Glucose Point of Care 152 mg/dl (65-105)
--- NOTE | 2022-05-30 10:38 | PM.CNCAR ---
Assessment and Plan Assessment and plan (1) Chest pain: Code(s): R07.9 - Chest pain, unspecified Status: Acute (2) Obstructive sleep apnea: Code(s): G47.33 - Obstructive sleep apnea (adult) (pediatric) Status: Acute (3) Cirrhosis: Code(s): K74.60 - Unspecified cirrhosis of liver Status: Acute (4) Hypertension: Code(s): I10 - Essential (primary) hypertension Status: Chronic (5) Gastroesophageal reflux: Code(s): K21.9 - Gastro-esophageal reflux disease without esophagitis Status: Acute (6) Type 2 diabetes mellitus: Code(s): E11.9 - Type 2 diabetes mellitus without complications Status: Acute Plan Troponins are negative x 3. ECG without ischemic changes. Has clear reproducible chest wall pain that patient states feels like the same pain he had yesterday. An echo is ordered and pending, will follow-up on results. If echo without significant abnormality, patient can be discharged home with outpatient follow-up with us and consideration of outpatient stress testing. History of Present Illness History of Present Illness Consult date/time: 05/30/22 10:38 Requesting physician: Anna Cunningham MD Consult reason: chest pain Reason For Visit: Chest Pain Narrative: We are consulted for chest pain. This is a 57-year-old male with a history of reported WA in his 30s (attributed to stress, no heart cath, treated medically), hypertension, diabetes, PAVAN who presented to the ER with chest pain. Patient states that he was unloading his truck yesterday when he got lightheaded/dizzy, felt his knees get weak, and then fell forward into the truck. He then felt sharp anterior chest pain that shot up to his shoulder. Chest pain last for about a minute and then self-resolved. Troponins are negative x 3. EKG without ischemic changes. Feels well this morning. Review of Systems Review of Systems: 12-point ROS obtained. Negative, unless stated in HPI. [facility] Past Medical History Medical History Cirrhosis Noted on CT on 05/29/2022. Diabetic peripheral neuropathy Gastroesophageal reflux Gastroesophageal reflux disease History of kidney stones History of lung cancer Patient reports history of bilateral pulmonary nodule suspicious for cancer. They were never biopsied but presumed to be malignant. He completed a marijuana treatment and the nodules essentially resolved. Hypertension Myocardial infarction Patient reports having an WA in his 30s attributed to stress. Treated medically. No heart catheterization. Obstructive sleep apnea Type 2 diabetes mellitus Surgical History Surgical History History of appendectomy History of orchiectomy Secondary to left-sided testicular torsion. History of right mastoidectomy (10/25/20) History of tympanoplasty Family History Family History Mother Congestive heart failure Diabetes mellitus Sibling Diabetes mellitus Other No significant family history Social History Social History Social History: Surrogate decision maker: Janny Mae, friend. Code status: Full code. Smoking status: Never smoker Alcohol intake: current Drinks per week: 1 Substance use: former Substance use type: marijuana Other substance usage details: Patient uses medical marijuana. Lack of Transportation: No Lack of Food: Never True Current Housing: I Do Not Have Housing Concerned About Future Housing: No Difficulty Paying Gas/Electric Bills: No Difficulty Paying for Meds: No Currently Unemployed: No Education: High School Diploma/GED Difficulty w/ Childcare or Family Care: No Additional living arrangements comments: Resides in [place] with his . Additional occupation/education comments: Disabl
[2022-05-30 12:00] LABS: Glucose Point of Care 230 mg/dl (65-105)
--- NOTE | 2022-05-30 13:35 | PM.DS ---
DS: Admitting Diagnosis Discharge Date 05/30/22 Admitting Diagnosis Chest pain DS: Discharge Diagnosis Discharge Diagnosis (1) Chest pain: Code(s): R07.9 - Chest pain, unspecified Status: Acute (2) Type 2 diabetes mellitus: Code(s): E11.9 - Type 2 diabetes mellitus without complications Status: Acute (3) Hypertension: Code(s): I10 - Essential (primary) hypertension Status: Chronic (4) Otitis media: Code(s): H66.90 - Otitis media, unspecified, unspecified ear Status: Acute (5) Cirrhosis: Code(s): K74.60 - Unspecified cirrhosis of liver Status: Acute (6) Right adrenal mass: Code(s): E27.8 - Other specified disorders of adrenal gland Status: Acute (7) Pulmonary nodule: Code(s): R91.1 - Solitary pulmonary nodule Status: Acute (8) Splenic mass: Code(s): R16.1 - Splenomegaly, not elsewhere classified Status: Acute (9) Gastroesophageal reflux disease: Code(s): K21.9 - Gastro-esophageal reflux disease without esophagitis Status: Acute DS: Summary Hospital Course Reason for hospitalization: 57yo male with hx of possible ME in his 30's, HTN, DM and PAVAN here for chest pain. Please see H&P for details Hospital Course: Patient with chest pain on exertion that began with weakness in the legs then falling forward on to his truck bed. He does have risk factors for CAD. CP was palpable and atypical overall. Trop negative x3. EKG showing no acute changes. CTA was negative for pulmonary embolism. Symptoms not consistent with his typical GERD. Cardiology consulted and discussed with them. Echo showing EF 55-60% and Grade I diastolic dysfunction without wall motion abnormalities. Plan for discahrge and patient to follow up with Cardiology in 2-4 weeks. CTA of the chest also showed other findings that will need to he followed. Patient was made aware. All questions were answered to his satisfaction. Status at Discharge Cognitive/behavioral status at discharge: Stable Time Spent with Patient Time attestation: Total time spent providing and/or coordinating discharge services: 38 minutes Time spent: Greater than 30 minutes Exam Narrative: Gen - NARD HEENT - bilateral ear canal clear without erythema. TM's without evidence of infection Chest - CTA bilaterally, nml RR CV - RRR S1/S2. Telemetry showing no significant dysrhythmias Abd - Soft, NT/ND, Positive BS Ext - No pedal edema Psych - Nml mood and affect Skin - Warm and dry. DS: Data Data Completed and Pending Labs on day of discharge: Labs from last 24 hours 05/30/22 05/30/22 05/30/22 11:49 07:40 05:14 WBC RBC Hgb Hct MCV MCH MCHC RDW Plt Count MPV % Immature Plt Fraction PT INR APTT Sodium Potassium Chloride Carbon Dioxide Anion Gap BUN Creatinine Estim Creat Clear Calc Estimated GFR Glucose POC Capillary Glucose 230 H 152 H 143 H Hemoglobin A1c Calcium Magnesium Total Bilirubin AST ALT Alkaline Phosphatase Troponin I Total Protein Albumin Triglycerides Cholesterol LDL Cholesterol Direct HDL Direct Lipase TSH (Reflex) Free T4 Total T3 Influenza A (RT-PCR) Influenza B (RT-PCR) SARS-CoV-2 RNA (RT-PCR) 05/30/22 05/30/22 05/30/22 04:46 03:45 03:45 WBC RBC Hgb Hct MCV MCH MCHC RDW Plt Count MPV % Immature Plt Fraction PT INR APTT Sodium Potassium Chloride Carbon Dioxide Anion Gap BUN Creatinine Estim Creat Clear Calc Estimated GFR Glucose POC Capillary Glucose 65 Hemoglobin A1c Calcium Magnesium Total Bilirubin AST ALT Alkaline Phosphatase Troponin I Total Protein Albumin Triglycerides 223 H Cholesterol 166 LDL Cholesterol Direct
[2022-05-31 13:51] LABS: Hemoglobin A1C 10.3 % (<5.7)
== END 2022-05-30 14:40 | disposition home or self-care (01) ==
LOC: ANHED 13:43 → ANHIMU 19:54
PROVIDERS: Emergency Medicine; Internal Medicine; Physician Assistant; Admitting Provider Student in an Organized Health Care Education/Training Program; Emergency Provider Emergency Medicine; PCP Registered Nurse; Visit Provider Internal Medicine
DX: R07.9 Chest pain, unspecified (principal); I10 Essential (primary) hypertension; R06.02 Shortness of breath; R91.1 Solitary pulmonary nodule; I70.0 Atherosclerosis of aorta; K76.6 Portal hypertension; E27.8 Other specified disorders of adrenal gland; R16.1 Splenomegaly, not elsewhere classified; K74.60 Unspecified cirrhosis of liver; H66.90 Otitis media, unspecified, unspecified ear; E11.42 Type 2 diabetes mellitus with diabetic polyneuropathy; I25.2 Old myocardial infarction; G47.33 Obstructive sleep apnea (adult) (pediatric); K21.9 Gastro-esophageal reflux disease without esophagitis; F12.90 Cannabis use, unspecified, uncomplicated; Z20.822 Contact with and (suspected) exposure to COVID-19; Z79.84 Long term (current) use of oral hypoglycemic drugs; Z79.4 Long term (current) use of insulin; Z79.51 Long term (current) use of inhaled steroids; Z79.899 Other long term (current) drug therapy; Z79.891 Long term (current) use of opiate analgesic
CPT/HCPCS: 36415; 71046; 71275; 80053; 80061; 82948; 83036; 83690; 83735; 84439; 84443; 84480; 84484; 85025; 85027; 85055; 85610; 85730; 87636; 93005; 94640; 96374; 96375; 99285; A9270; C8929; G0378; G0379; J1815; J2270; J2405; Q9957; Q9967

== ENCOUNTER 2022-07-04 12:27 | Emergency (ER) | payer MEDICARE, MEDICAID, SELFPAY ==
--- NOTE | ~2022-07-04 | XR_ITS ---
XR foot LT min 3V 07/04/2022 12:44 Indication: Left foot pain after injury Procedure: 4 views left foot Comparison: No prior studies for comparison. Findings: There is a nondisplaced intra-articular fracture proximal aspect of the fifth proximal phal anx. There is old healed fracture of the first proximal phalanx with osteoarthritis of the first MTP and IP joints. There is a probable healed fracture proximal aspect of the fifth metatarsal. Lisfranc joint intact. No other acute fracture. There is prominent degenerative calcaneal enthesophytes. There is polyarticular osteoarthritis of the midfoot. Impression: 1: Nondisplaced intra-articular fracture proximal aspect of the left fifth proximal phalanx. Reviewed, dictated and finalized at location B. UNLOADER Impression: 1: Nondisplaced intra-articular fracture proximal aspect of the left fifth prox imal phalanx.
--- NOTE | 2022-07-04 13:20 | PC.NURSE ---
1st encounter, pt c/o left foot pain, pt states he got out of his truck saturday evening and rolled his left foot/ankle on gum balls from a gum ball tree pt in no acute distress or SOB, airway patent, breathing even/unlabored. pt A&Ox4, denies any chest pain or ASHLEY, pt has pain and swelling to left foot.
--- NOTE | 2022-07-04 13:33 | PC.NURSE ---
Applied post op shoe to left foot at this time. Patient provided with crutches and crutch training at this time. Patient verbalizes understanding with crutch use. Ice pack also given to patient
--- NOTE | 2022-07-04 13:44 | ED.LOWEXIN ---
HPI - Extremity Injury (Lower) General Chief Complaint: Extremity Injury, Lower Stated Complaint: left foot injury Time Seen by Provider: 07/04/22 13:05 Source: patient Mode of arrival: ambulatory Limitations: no limitations History of Present Illness HPI Narrative: This is a 57-year-old male that presents to the emergency department after an injury 2 days ago with left foot pain. Reports he slipped on the sweet gums from a gumball tree. Reports twisting his left foot. He has had pain to the left foot as well as swelling and bruising. It is made difficult for him to bear weight on the foot. He did not hit his head or lose consciousness. Denies any other focal injuries. Denies decreased range of motion or numbness. Related Data Home Medications Medication Instructions Recorded Confirmed fluticasone furoate 200 1 inh inhalation DAILY 08/15/20 05/29/22 mcg-vilanterol 25 mcg/dose inhalation powder (Breo Ellipta) hydrochlorothiazide 12.5 mg tablet 12.5 mg PO DAILY 08/15/20 05/29/22 insulin glargine 100 unit/mL (3 60 unit subcut HS 08/15/20 05/29/22 mL) subcutaneous pen (Basaglar KwikPen U-100 Insulin) losartan 50 mg tablet 50 mg PO DAILY 08/15/20 05/29/22 metformin 1,000 mg tablet 1,000 mg PO BID 08/15/20 05/29/22 pen needle, diabetic 31 gauge x 08/15/20 05/29/22 5/16 (BD Ultra-Fine Short Pen Needle) trazodone 50 mg tablet 50 mg PO HS 08/15/20 05/29/22 atorvastatin 20 mg tablet 20 mg PO DAILY 05/29/22 05/29/22 empagliflozin 25 mg tablet 25 mg PO DAILY 05/29/22 05/29/22 (Jardiance) gabapentin 100 mg capsule 200 mg PO TID 05/29/22 05/29/22 hydrocodone 7.5 mg-acetaminophen 1 tablet PO Q6H PRN Pain 05/29/22 05/29/22 325 mg tablet semaglutide 0.25 mg or 0.5 mg (2 0.5 mg subcut Q7D 05/29/22 05/29/22 mg/1.5 mL) subcutaneous pen injector ([employer]) Allergies Allergy/AdvReac Type Severity Reaction Status Date / Time No Known Allergies Allergy Verified 10/25/20 14:18 Review of Systems Review of Systems: CONSTITUTIONAL: Denies fever MUSCULOSKELETAL: Reports joint pain, and myalgia. NEUROLOGIC: Denies numbness All systems reviewed & are unremarkable except as noted in HPI and below PMFSH Past Medical History Medical History Cirrhosis Noted on CT on 05/29/2022. Diabetic peripheral neuropathy Gastroesophageal reflux Gastroesophageal reflux disease History of kidney stones History of lung cancer Patient reports history of bilateral pulmonary nodule suspicious for cancer. They were never biopsied but presumed to be malignant. He completed a marijuana treatment and the nodules essentially resolved. Hypertension Myocardial infarction Patient reports having an OR in his 30s attributed to stress. Treated medically. No heart catheterization. Obstructive sleep apnea Type 2 diabetes mellitus Surgical History Surgical History History of appendectomy History of orchiectomy Secondary to left-sided testicular torsion. History of right mastoidectomy (10/25/20) History of tympanoplasty Family History Family History Mother Congestive heart failure Diabetes mellitus Sibling Diabetes mellitus Other No significant family history Social History Social History Social History: Surrogate decision maker: Janny Mae, friend. Code status: Full code. Smoking status: Never smoker Alcohol intake: current Drinks per week: 1 Substance use: former Substance use type: marijuana Other substance usage details: Patient uses medical marijuana. Lack of Transportation: No Lack of Food: Never True Current Housing: I Do Not Have Housing Concerned About Future Housing: No Difficulty Paying Gas/Electric Bills: No Difficulty Paying for Meds: No Currently Unemployed: No Educatio
[2022-07-04 14:08] VITALS: BP 97/57; PULSE 74; RESP 16; O2SAT 98
== END 2022-07-04 14:09 | disposition home or self-care (01) ==
PROVIDERS: Emergency Provider Physician Assistant; PCP Registered Nurse
DX: S92.515A Nondisplaced fracture of proximal phalanx of left lesser toe(s), initial encounter for closed fracture (principal); E11.40 Type 2 diabetes mellitus with diabetic neuropathy, unspecified; Z79.4 Long term (current) use of insulin; K21.9 Gastro-esophageal reflux disease without esophagitis; Z87.442 Personal history of urinary calculi; I10 Essential (primary) hypertension; I25.2 Old myocardial infarction; G47.30 Sleep apnea, unspecified
CPT/HCPCS: 73630; 99284

== ENCOUNTER 2022-07-11 11:00 | Outpatient (CLI) | payer MEDICARE, MEDICAID, SELFPAY ==
--- NOTE | ~2022-07-11 | US_ITS ---
EXAMINATION: US venous doppler [facility] DATE: 07/11/2022 11:47 INDICATION: Left calf pain. TECHNIQUE: Grayscale ultrasound images without and with compression and Doppler ultrasound images of the left lower extremity veins were obtained. COMPARISON: None. FINDINGS: The visualized portions of left common femoral vein, profunda (deep) femoral vein, femoral vein, popl iteal vein, peroneal veins, posterior tibial veins, and greater saphenous vein outflow are patent. IMPRESSION: 1. No deep venous thrombosis. Reviewed, dictated and finalized at location A. SFER KNITTER
== END 2022-07-11 11:01 | disposition home or self-care (01) ==
LOC: ANHIMG 11:11
PROVIDERS: PCP Registered Nurse; Visit Provider Registered Nurse
DX: M79.662 Pain in left lower leg (principal)
CPT/HCPCS: 93971

== ENCOUNTER 2022-12-18 13:56 | Outpatient (CLI) | payer MEDICARE, MEDICAID, SELFPAY ==
--- NOTE | ~2022-12-18 | CT_ITS ---
CT Scan of the Chest without Contrast: Clinical Indication: Lung nodule Technique: Contiguous sections were acquired throughout the chest without intravenous contrast. Dose reduction technique was used on this scan by utilizing automated exposure control and iterative recon struction technique. The dose-length product (DLP) was 353.49 mGy-cm. COMPARISON: 05/29/2022 Findings: There is no evidence of any significant mediastinal, hilar or axillary lymphadenopathy. Coronary trena ry calcifications are present. There is no evidence of pleural or pericardial effusion. Stable 7 mm lingular pulmonary nodule. No other pulmonary abnormality seen. Images through the upper abdomen reveal 3.4 cm right adrenal adenoma, unchanged. Stable prominent por ta hepatis lymph nodes. Stable mildly nodular contour of liver. Impression: Stable 7 mm lingular pulmonary nodule. Stable 3.4 cm right adrenal adenoma. Stable cirrhotic change with prominent miranda hepatis lymph nodes. Reviewed, dictated and finalized at [facility]. Impression: Stable 7 mm lingular pulmonary nodule. Stable 3.4 cm right adrenal adenoma. Stable cirrhotic change with prominent miranda hepatis lymph nodes.
== END 2022-12-18 13:57 | disposition home or self-care (01) ==
PROVIDERS: PCP Registered Nurse; Visit Provider Registered Nurse
DX: R91.1 Solitary pulmonary nodule (principal)
CPT/HCPCS: 71250

== ENCOUNTER 2022-12-24 15:16 | Emergency (ER) | payer MEDICARE, MEDICAID, SELFPAY ==
--- NOTE | ~2022-12-24 | XR_ITS ---
EXAM: XR hip LT 2V w AP pelvis, XR sacrum coccyx min 2V DATE: 12/24/2022 18:08 HISTORY: hip pain, SI pain . COMPARISON: None available. FINDINGS: Normal mineralization. No fracture or dislocation. No lytic or blastic lesion. Mild lumbar degenerative disc disease. Mild bilateral hip and sacroiliac joint osteoarthritis. Likely enchondrom a the proximal right femur. No erosion or periosteal change. Vascular calcifications. IMPRESSION: No acute osseous finding in the pelvis, left hip, or sacrum/coccyx. Reviewed, dictated and finalized at location K. IMPRESSION: No acute osseous finding in the pelvis, left hip, or sacrum/coccyx.
[2022-12-24 15:53] VITALS: BP 105/60; PULSE 85; RESP 16; TEMP 36.1; O2SAT 98
--- NOTE | 2022-12-24 17:28 | ED.LOWEXIN ---
HPI - Extremity Injury (Lower) General Chief Complaint: Extremity Injury, Lower Stated Complaint: left hip down leg Time Seen by Provider: 12/24/22 16:56 History of Present Illness HPI Narrative: 57-year-old male with a history of PAVAN, cirrhosis, GERD, renal failure, hypertension reports for evaluation for left hip pain and low back pain x3 days. Pt states 3 days ago he was stepping on a step at home, his foot slipped and he hit his L hip into the wall and heard a pop. He did not fall to the ground, hit his head or lose consciousness. States since then he has had pain to his left hip overlying his SI with sharp shooting pains down the back of his leg. He reports taking Holiday and gabapentin for the pain which she is prescribed for his peripheral neuropathy with some relief. He also reports applying heating pads and ice without relief. He denies fever, vomiting, weakness, loss of bowel or bladder control or retention, saddle anesthesia. Related Data Home Medications Medication Instructions Recorded Confirmed fluticasone furoate 200 1 inh inhalation DAILY 08/15/20 08/22/22 mcg-vilanterol 25 mcg/dose inhalation powder (Breo Ellipta) hydrochlorothiazide 12.5 mg tablet 12.5 mg PO DAILY 08/15/20 08/22/22 insulin glargine 100 unit/mL (3 60 unit subcut HS 08/15/20 08/22/22 mL) subcutaneous pen (Basaglar KwikPen U-100 Insulin) losartan 50 mg tablet 50 mg PO DAILY 08/15/20 08/22/22 metformin 1,000 mg tablet 1,000 mg PO BID 08/15/20 08/22/22 pen needle, diabetic 31 gauge x 08/15/20 08/22/22 5/16 (BD Ultra-Fine Short Pen Needle) trazodone 50 mg tablet 50 mg PO HS 08/15/20 08/22/22 atorvastatin 20 mg tablet 20 mg PO DAILY 05/29/22 08/22/22 empagliflozin 25 mg tablet 25 mg PO DAILY 05/29/22 08/22/22 (Jardiance) gabapentin 100 mg capsule 200 mg PO TID 05/29/22 08/22/22 hydrocodone 7.5 mg-acetaminophen 1 tablet PO Q6H PRN Pain 05/29/22 08/22/22 325 mg tablet semaglutide 0.25 mg or 0.5 mg (2 0.5 mg subcut Q7D 05/29/22 08/22/22 mg/1.5 mL) subcutaneous pen injector (Ozempic) Allergies Allergy/AdvReac Type Severity Reaction Status Date / Time No Known Allergies Allergy Verified 12/24/22 16:21 Review of Systems Review of Systems: CONSTITUTIONAL: Denies fever, chills EYES: Denies visual changes, redness, or discharge. ENT: Denies rhinorrhea, congestion, sore throat, or otalgia. CARDIOVASCULAR: Denies chest pain, palpitations, or edema. RESPIRATORY: Denies cough or dyspnea. GASTROINTESTINAL: Denies abdominal pain, nausea, vomiting, or diarrhea. GENITOURINARY: Denies dysuria or hematuria. SKIN: Denies rash or itching. MUSCULOSKELETAL: See HPI NEUROLOGIC: Denies headache, numbness, dizziness, or weakness. PSYCHIATRIC: Denies anxiety or depression. [facility] Past Medical History Medical History Cirrhosis Noted on CT on 05/29/2022. Diabetes Diabetic peripheral neuropathy Gastroesophageal reflux Gastroesophageal reflux disease History of kidney stones History of lung cancer Patient reports history of bilateral pulmonary nodule suspicious for cancer. They were never biopsied but presumed to be malignant. He completed a marijuana treatment and the nodules essentially resolved. Hypertension Myocardial infarction Patient reports having an NC in his 30s attributed to stress. Treated medically. No heart catheterization. Obstructive sleep apnea Type 2 diabetes mellitus Surgical History Surgical History History of appendectomy History of orchiectomy Secondary to left-sided testicular torsion. History of right mastoidectomy (10/25/20) History of tympanoplasty Family History Family History Mother Congestive heart failure Diabetes mellitus Sibling Diabetes mellitus Other No significant family history Social History Social Hist
[2022-12-24] MEDS: LIDOCAINE 5% PATCH 1 PATCH TRANSDERM (17:37)
[2022-12-24 18:57] VITALS: BP 125/62; PULSE 81; RESP 18; O2SAT 99
== END 2022-12-24 18:58 | disposition home or self-care (01) ==
PROVIDERS: Emergency Provider Physician Assistant; PCP Registered Nurse
DX: S39.92XA Unspecified injury of lower back, initial encounter (principal); E11.42 Type 2 diabetes mellitus with diabetic polyneuropathy; I10 Essential (primary) hypertension; I25.2 Old myocardial infarction; K74.60 Unspecified cirrhosis of liver; K21.9 Gastro-esophageal reflux disease without esophagitis; G47.33 Obstructive sleep apnea (adult) (pediatric); Z85.118 Personal history of other malignant neoplasm of bronchus and lung; Z87.442 Personal history of urinary calculi; Z90.79 Acquired absence of other genital organ(s); Z79.4 Long term (current) use of insulin; Z79.85 Long-term (current) use of injectable non-insulin antidiabetic drugs; Z79.84 Long term (current) use of oral hypoglycemic drugs; W22.01XA Walked into wall, initial encounter
CPT/HCPCS: 72220; 73502; 99284; A9270

== ENCOUNTER 2023-02-12 15:06 | Outpatient (CLI) | payer MEDICARE, MEDICAID, SELFPAY ==
[2023-02-12 15:56] LABS: Hematocrit 36.8 % (42.0-52.0); Mean Corpuscular HGB Conc 32.6 g/dl (32-36); Mean Corpuscular Hemoglobin 30.6 pg (26-34); Mean Corpuscular Volume 93.9 fl (80-100); Mean Platelet Volume 11.9 fl (7.4-10.4); Platelet Count Result 102 k/mm3 (150-375); Red Blood Count 3.92 M/mm3 (4.6-6.20); Red Cell Distribution Width 13.4 % (11.5-14.5); White Blood Count 5.8 K/mm3 (4.5-10.0)
[2023-02-12 16:06] LABS: Alanine Aminotransferase 35 U/L (6-50); Albumin Level 4.4 g/dL (3.5-5.1); Alkaline Phosphatase 68 U/L (38-126); Anion Gap 12 mmol/L (8-16); Aspartate Amino Transferase 33 U/L (17-59); Bilirubin,Total 0.7 mg/dL (0.2-1.3); Blood Urea Nitrogen 49 mg/dL (9-20); Calcium 9.2 mg/dL (8.4-10.2); Carbon Dioxide 20 mmol/L (22-30); Chloride 105 mmol/L (98-107); Estimated Glomerular Filt Rate 45; Glucose 278 mg/dL (65-110); Potassium 5.2 mmol/L (3.4-5.0); Sodium 137 mmol/L (137-145)
[2023-02-12 16:11] LABS: INR 1.1; Prothrombin Time 14.9 Seconds (11.1-14.7)
[2023-02-12 16:25] LABS: Iron 98 ug/dL (49-181)
[2023-02-12 16:35] LABS: Percent Iron Saturation 35 % (20-50)
[2023-02-12 16:57] LABS: Hepatitis B Surface Antigen Negative (Negative)
[2023-02-12 17:03] LABS: HAV RESULT Negative (Negative); Hepatitis B Core IgM Result Negative (Negative)
[2023-02-12 17:12] LABS: Folic Acid 11.2 ng/mL (2.76->20)
[2023-02-12 17:14] LABS: Hepatitis B Surface Anti Res Negative
[2023-02-12 17:19] LABS: Hepatitis C Virus Antibody Reactive (Negative)
[2023-02-14 19:38] LABS: Hepatitis A Antibody Total Nonreactive (Nonreactive)
[2023-02-15 08:18] LABS: Hepatitis C RNA, Quant PCR <15 IU/mL
[2023-02-15 11:03] LABS: Mitochondrial (M2) Ab (IgG) <=20.0 U (<=20.0)
[2023-02-15 21:38] LABS: LKM 1 Antibody <=20.0 U (<=20.0)
[2023-02-19 18:57] LABS: Alpha Fetoprotein Tumor Marker 2.4 ng/mL (<6.1)
== END 2023-02-12 15:07 | disposition home or self-care (01) ==
PROVIDERS: PCP Registered Nurse; Visit Provider Nurse Practitioner
DX: K74.60 Unspecified cirrhosis of liver (principal); D61.818 Other pancytopenia
CPT/HCPCS: 36415; 80053; 80074; 82105; 82607; 82728; 82746; 83520; 83540; 83550; 85027; 85610; 86038; 86376; 86706; 86708; 87522

== ENCOUNTER 2023-02-21 08:06 | Outpatient (CLI) | payer MEDICARE, MEDICAID, SELFPAY ==
[2023-02-26 21:59] LABS: Actin Antibody (IgG) <20 U (<20)
== END 2023-02-21 08:07 | disposition home or self-care (01) ==
PROVIDERS: PCP Registered Nurse; Visit Provider Nurse Practitioner
DX: K74.60 Unspecified cirrhosis of liver (principal); D61.818 Other pancytopenia
CPT/HCPCS: 36415; 86364

== ENCOUNTER 2023-02-25 07:04 | Outpatient (CLI) | payer MEDICARE, MEDICAID, SELFPAY ==
--- NOTE | ~2023-02-25 | MR_ITS ---
EXAMINATION: MR abdomen wo/w con DATE: 02/25/2023 09:04 INDICATION: Right adrenal gland mass TECHNIQUE: Magnetic resonance imaging (MRI) of the abdomen was performed without and with 20 mL Multi rosa maria intravenous contrast. Sequences included coronal and axial T2-weighted SS-FSE, axial FS 2D-FIES TA, coronal and axial dual-echo T1-weighted FSPGR, axial T1-weighted LAVA, and axial STIR FSE. Postco ntrast axial T1-weighted LAVA images were obtained in a time course. Postcontrast coronal T1-weighted LAVA images were obtained. COMPARISON: CT chest dated 12/18/2022 FINDINGS: Arch size is normal. No pericardial or pleural effusion. Nodular liver surface consistent with cirrho sis. Splenomegaly measuring 16.5 cm in length and which along with a recanalized umbilical vein consi stent with secondary portal venous hypertension. 1.4 cm T2 hyperintense nonenhancing splenic cyst. Ga llbladder, pancreas and left adrenal gland are normal. 3.5 x 2.6 cm right adrenal adenoma with diagno stic signal dropout on opposed phase imaging and low attenuation on prior CT. Subcentimeter T2 hyperi ntense nonenhancing bilateral renal cysts the largest on the right measuring 7 mm. Visualized portion s of the bowels are unremarkable. No pathologically enlarged abdominal lymphadenopathy. Bones are unr emarkable with normal marrow signal throughout. IMPRESSION: 1. 3.5 x 2.6 cm right adrenal adenoma. 2. Cirrhosis. 3. Splenomegaly and recanalized umbilical vein consistent with secondary portal venous hypertension. Reviewed, dictated and finalized at location A.
== END 2023-02-25 07:05 | disposition home or self-care (01) ==
PROVIDERS: PCP Registered Nurse; Visit Provider Registered Nurse
DX: D35.01 Benign neoplasm of right adrenal gland (principal); K74.60 Unspecified cirrhosis of liver; R16.1 Splenomegaly, not elsewhere classified; E27.8 Other specified disorders of adrenal gland
CPT/HCPCS: 74183; A9577

== ENCOUNTER 2023-03-04 08:24 | Outpatient (CLI) | payer MEDICARE, MEDICAID, SELFPAY ==
--- NOTE | ~2023-03-04 | US_ITS ---
Limited Abdominal Sonogram: Real-time sonographic imaging of the right upper quadrant was performed. Clinical History: Cirrhosis, HCC surveillance Findings: The liver appears echogenic, with no evidence of mass lesion or bile duct dilatation. Ther e is minimal nodularity of the hepatic contour. Main portal vein demonstrates normal direction of zhou w. The gallbladder is well distended, and appears normal with no evidence of gallstone or wall thicke angela. The common bile duct measures 5 mm. The visualized pancreas, aorta, and IVC are unremarkable. Impression: Minimal nodular hepatic contour with echogenic hepatic echotexture. Findings are consistent with cirr hosis and/or fatty infiltration. No focal hepatic mass seen. Reviewed, dictated and finalized at location . Impression: Minimal nodular hepatic contour with echogenic hepatic echotexture. Findings ar e consistent with cirrhosis and/or fatty infiltration. No focal hepatic mass seen.
== END 2023-03-04 08:25 | disposition home or self-care (01) ==
PROVIDERS: PCP Registered Nurse; Visit Provider Nurse Practitioner
DX: K74.60 Unspecified cirrhosis of liver (principal)
CPT/HCPCS: 76705

== ENCOUNTER 2023-03-20 02:23 | Day surgery (SDC) | payer MEDICARE, MEDICAID, SELFPAY ==
[2023-03-11 15:34] VITALS: BMI 33.4
--- NOTE | 2023-03-18 09:32 | SUR.PREOP ---
Patient called regarding upcoming procedure. Reviewed preop instructions, appointment times, and procedure prep.
[2023-03-20 07:18] LABS: Glucose Point of Care 147 mg/dl (65-105)
[2023-03-20 07:19] VITALS: BP 124/71; PULSE 88; RESP 18; TEMP 36.1; O2SAT 98
[2023-03-20] MEDS: LACTATED RINGERS 1,000 ML 150 ML IV CONT (07:34)
--- NOTE | 2023-03-20 08:13 | WPDANESEPPF ---
Anes - Initial Pre Proc Eval Procedure: Operation Date: 03/20/23 08:30 Proposed Procedures p Esophagogastroduodenoscopy & Colonoscopy - Lamonte Ludwig MD Date/Time: 03/20/23 08:13 Surgeon: Lamonte Ludwig MD Pre Op Diagnosis: Neoplasm screening, cirrhosis of liver. Patient Data Age: 58 Gender: M Height: 1.88 m Weight: 117.8 kg Last Vital Signs Temp 97 F L 03/20/23 07:19 Pulse 88 03/20/23 07:19 Resp 18 03/20/23 07:19 BP 124/71 03/20/23 07:19 Pulse Ox 98 03/20/23 07:19 O2 Del Method Room Air 03/20/23 07:19 Allergies Allergy/AdvReac Type Severity Reaction Status Date / Time No Known Allergies Allergy Verified 03/20/23 07:17 Home Medications Medication Instructions Recorded Confirmed Type fluticasone furoate 200 1 inh inhalation DAILY 08/15/20 03/20/23 History mcg-vilanterol 25 mcg/dose inhalation powder (Breo Ellipta) hydrochlorothiazide 12.5 mg tablet 12.5 mg PO DAILY 08/15/20 03/20/23 History insulin glargine 100 unit/mL (3 60 unit subcut HS 08/15/20 03/20/23 History mL) subcutaneous pen (Basaglar KwikPen U-100 Insulin) losartan 50 mg tablet 50 mg PO DAILY 08/15/20 03/20/23 History metformin 1,000 mg tablet 1,000 mg PO BID 08/15/20 03/20/23 History pen needle, diabetic 31 gauge x 08/15/20 03/11/23 History 5/16 (BD Ultra-Fine Short Pen Needle) trazodone 50 mg tablet 50 mg PO HS 08/15/20 03/20/23 History atorvastatin 20 mg tablet 20 mg PO DAILY 05/29/22 03/20/23 History empagliflozin 25 mg tablet 25 mg PO DAILY 05/29/22 03/20/23 History (Jardiance) gabapentin 100 mg capsule 200 mg PO TID 05/29/22 03/20/23 History hydrocodone 7.5 mg-acetaminophen 1 tablet PO Q6H PRN Pain 05/29/22 03/20/23 History 325 mg tablet semaglutide 0.25 mg or 0.5 mg (2 0.5 mg subcut Q7D 05/29/22 03/20/23 History mg/1.5 mL) subcutaneous pen injector (OzempDojo) lidocaine 1.8 % topical patch 1 patch topical DAILY #30 ea 12/24/22 03/20/23 Rx Laboratory Tests 03/20/23 07:15 POC Capillary Glucose 147 H mg/dl (65-105) Patient hx anesthesia problems: none Family hx anesthesia problems: none Results Review: All pre-operative results and documents have been reviewed as part of the pre-operative evaluation. [facility] Past Medical History Medical History (Updated 02/12/23 @ 15:11 by Tashia Conteh, JOSEPH) CAD (coronary artery disease) Cirrhosis Noted on CT on 05/29/2022. Diabetes Diabetic peripheral neuropathy Gastroesophageal reflux Gastroesophageal reflux disease History of alcohol abuse History of kidney stones History of lung cancer Patient reports history of bilateral pulmonary nodule suspicious for cancer. They were never biopsied but presumed to be malignant. He completed a marijuana treatment and the nodules essentially resolved. Hypertension Myocardial infarction Patient reports having an DE in his 30s attributed to stress. Treated medically. No heart catheterization. Obesity Obstructive sleep apnea Pancytopenia Screening for colon cancer Type 2 diabetes mellitus Surgical History Surgical History History of appendectomy History of orchiectomy Secondary to left-sided testicular torsion. History of right mastoidectomy (10/25/20) History of tympanoplasty Family History Family History Mother Congestive heart failure Diabetes mellitus Sibling Diabetes mellitus Other No significant family history Social History Social History Social History: Surrogate decision maker: Janny Mae, friend. Code status: Full code. Smoking status: Never smoker Alcohol intake: former Drinks per week: 1 Alcohol use details: 1 L WHISKEY PER DAY,NONE 23 YRS Substance use: never Substance use type: does not use Other substance usage detail
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
--- NOTE | 2023-03-20 08:40 | SUR.OPER ---
EGD end 838 COLONOSCOPY START 842
[2023-03-20 09:05] VITALS: BP 119/72; PULSE 79; RESP 24; O2SAT 98
[2023-03-20 09:15] VITALS: BP 130/80; PULSE 84; RESP 17; O2SAT 98
[2023-03-20 09:18] LABS: Glucose Point of Care 128 mg/dl (65-105)
[2023-03-20 09:25] VITALS: BP 148/92; PULSE 85; RESP 17; O2SAT 98
== END 2023-03-20 09:32 | disposition home or self-care (01) ==
PROVIDERS: PCP Registered Nurse; Visit Provider Internal Medicine Gastroenterology
PROC: 0DJ08ZZ Inspection of Upper Intestinal Tract, Via Natural or Artificial Opening Endoscopic (ICD-10-PCS; CPT 43235; principal; 2023-03-20 08:30)
DX: Z12.11 Encounter for screening for malignant neoplasm of colon (principal); D12.4 Benign neoplasm of descending colon; K74.60 Unspecified cirrhosis of liver; E11.42 Type 2 diabetes mellitus with diabetic polyneuropathy; K21.9 Gastro-esophageal reflux disease without esophagitis; I10 Essential (primary) hypertension; G47.33 Obstructive sleep apnea (adult) (pediatric); Z79.4 Long term (current) use of insulin; Z79.84 Long term (current) use of oral hypoglycemic drugs; Z79.85 Long-term (current) use of injectable non-insulin antidiabetic drugs; Z79.891 Long term (current) use of opiate analgesic; E66.9 Obesity, unspecified; Z68.33 Body mass index [BMI] 33.0-33.9, adult; Z85.118 Personal history of other malignant neoplasm of bronchus and lung; Z82.49 Family history of ischemic heart disease and other diseases of the circulatory system
CPT/HCPCS: 43235; 45385; 82948; 88305; J2704; J7120

== ENCOUNTER 2023-04-15 15:59 | Emergency (ER) | payer OTHER, MEDICARE, MEDICAID, SELFPAY ==
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
[2023-04-15 16:46] VITALS: BP 139/67; PULSE 82; RESP 16; TEMP 36.4; O2SAT 100
[2023-04-15] MEDS: HYDROcodone/acetaminophen (*CRX) 5-325 MG TABLET 1 TAB PO (21:46)
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
[2023-04-15 22:25] VITALS: BP 132/78; PULSE 70; RESP 16; TEMP 36.7; O2SAT 100
== END 2023-04-15 22:26 | disposition home or self-care (01) ==
PROVIDERS: Emergency Provider Physician Assistant; PCP Registered Nurse
DX: S39.012A Strain of muscle, fascia and tendon of lower back, initial encounter (principal); I25.10 Atherosclerotic heart disease of native coronary artery without angina pectoris; I10 Essential (primary) hypertension; I25.2 Old myocardial infarction; E11.42 Type 2 diabetes mellitus with diabetic polyneuropathy; G47.33 Obstructive sleep apnea (adult) (pediatric); K21.9 Gastro-esophageal reflux disease without esophagitis; Z85.118 Personal history of other malignant neoplasm of bronchus and lung; Z87.442 Personal history of urinary calculi; Z79.4 Long term (current) use of insulin; Z79.85 Long-term (current) use of injectable non-insulin antidiabetic drugs; M47.813 Spondylosis without myelopathy or radiculopathy, cervicothoracic region; V49.40XA Driver injured in collision with unspecified motor vehicles in traffic accident, initial encounter
CPT/HCPCS: 72100; 72131; 99284; A9270

== ENCOUNTER 2023-08-05 10:01 | Outpatient (CLI) | payer OTHER, MEDICARE, MEDICAID, SELFPAY ==
[2023-08-05 11:30] LABS: Hematocrit 41.3 % (42.0-52.0); Immature Platelet Fraction Pct 6.7 % (0.9-11.2); Mean Corpuscular HGB Conc 31.5 g/dl (32-36); Mean Corpuscular Hemoglobin 30.3 pg (26-34); Mean Corpuscular Volume 96.3 fl (80-100); Platelet Count Result 90 k/mm3 (150-375); Red Blood Count 4.29 M/mm3 (4.6-6.20); Red Cell Distribution Width 13.6 % (11.5-14.5); White Blood Count 4.1 K/mm3 (4.5-10.0)
[2023-08-05 11:39] LABS: Alanine Aminotransferase 47 U/L (6-50); Albumin Level 4.2 g/dL (3.5-5.1); Alkaline Phosphatase 79 U/L (38-126); Anion Gap 11 mmol/L (8-16); Aspartate Amino Transferase 44 U/L (17-59); Blood Urea Nitrogen 24 mg/dL (9-20); Calcium 9.3 mg/dL (8.4-10.2); Carbon Dioxide 21 mmol/L (22-30); Chloride 105 mmol/L (98-107); Estimated Glomerular Filt Rate > 60; Glucose 326 mg/dL (65-110); Potassium 4.5 mmol/L (3.4-5.0); Sodium 137 mmol/L (137-145)
[2023-08-05 11:42] LABS: INR 1.1; Prothrombin Time 14.5 Seconds (11.1-14.7)
== END 2023-08-05 10:02 | disposition home or self-care (01) ==
LOC: ANHLAB 10:05
PROVIDERS: PCP Registered Nurse; Visit Provider Nurse Practitioner
DX: K74.60 Unspecified cirrhosis of liver (principal)
CPT/HCPCS: 36415; 80053; 82105; 85027; 85055; 85610

== ENCOUNTER 2023-08-24 07:05 | Outpatient (CLI) | payer MEDICARE, MEDICAID, SELFPAY ==
--- NOTE | ~2023-08-24 | US_ITS ---
EXAMINATION: US abdomen limited DATE: 08/24/2023 08:39 INDICATION: Unspecified cirrhosis of liver. TECHNIQUE: Multiple grayscale and Doppler ultrasound images of the abdomen were obtained. COMPARISON: Abdomen ultrasound 03/04/2023, abdomen ultrasound 02/25/2023. FINDINGS: The visualized portions of the head, body, and tail of the pancreas are normal. There is di ffuse hepatic steatosis and liver surface nodularity, consistent with cirrhosis. There is normal flow in main portal vein. The gallbladder is normal in size. No gallstones or gallbladder wall thickening . There is no sonographic Rabago sign. The common duct is normal and measures 5 mm. IMPRESSION: 1. Cirrhosis of the liver. Reviewed, dictated and finalized at location E. IMPRESSION: 1. Cirrhosis of the liver.
== END 2023-08-24 07:06 | disposition home or self-care (01) ==
LOC: ANHIMG 07:09
PROVIDERS: PCP Registered Nurse; Visit Provider Nurse Practitioner
DX: K74.60 Unspecified cirrhosis of liver (principal)
CPT/HCPCS: 76705

== ENCOUNTER 2024-02-26 09:33 | Outpatient (CLI) | payer MEDICARE, MEDICAID, SELFPAY ==
--- NOTE | ~2024-02-26 | US_ITS ---
Limited Abdominal Sonogram: Real-time sonographic imaging of the right upper quadrant was performed. Clinical History: Cirrhosis Findings: The liver appears echogenic, with no evidence of mass lesion or bile duct dilatation. Main portal vein demonstrates normal direction of flow. The gallbladder is well distended, and appears no rmal with no evidence of gallstone or wall thickening. The common bile duct measures 5 mm. The visua lized pancreas, aorta, and IVC are unremarkable. Impression: Diffuse fatty infiltration of liver. Reviewed, dictated and finalized at location M. Impression: Diffuse fatty infiltration of liver.
[2024-02-26 11:07] LABS: Hematocrit 43.2 % (42.0-52.0); Immature Platelet Fraction Pct 5.8 % (0.9-11.2); Mean Corpuscular HGB Conc 32.4 g/dl (32-36); Mean Corpuscular Hemoglobin 30.6 pg (26-34); Mean Corpuscular Volume 94.3 fl (80-100); Mean Platelet Volume 11.4 fl (7.4-10.4); Platelet Count Result 93 k/mm3 (150-375); Red Blood Count 4.58 M/mm3 (4.6-6.20); Red Cell Distribution Width 13.2 % (11.5-14.5); White Blood Count 4.8 K/mm3 (4.5-10.0)
[2024-02-26 11:15] LABS: INR 1.1; Prothrombin Time 14.2 Seconds (11.1-14.7)
[2024-02-26 11:19] LABS: Alanine Aminotransferase 46 U/L (6-50); Albumin Level 4.5 g/dL (3.5-5.1); Alkaline Phosphatase 80 U/L (38-126); Anion Gap 8 mmol/L (4-12); Aspartate Amino Transferase 41 U/L (17-59); Blood Urea Nitrogen 27 mg/dL (9-20); Calcium 9.5 mg/dL (8.4-10.2); Carbon Dioxide 28 mmol/L (22-30); Chloride 105 mmol/L (98-107); Estimated Glomerular Filt Rate > 60; Glucose 133 mg/dL (65-110); Potassium 4.9 mmol/L (3.4-5.0); Sodium 141 mmol/L (137-145)
== END 2024-02-26 09:34 | disposition home or self-care (01) ==
LOC: ANHIMG 09:36
PROVIDERS: PCP Registered Nurse; Visit Provider Internal Medicine Gastroenterology
DX: K74.60 Unspecified cirrhosis of liver (principal); H61.23 Impacted cerumen, bilateral
CPT/HCPCS: 36415; 76705; 80053; 85027; 85055; 85610

== ENCOUNTER 2024-04-02 16:09 | Emergency (ER) | payer MEDICARE, MEDICAID, SELFPAY ==
--- NOTE | ~2024-04-02 | CT_ITS ---
EXAMINATION: CT IAC/mastoids BI w con DATE: 04/02/2024 23:04 INDICATION: Left ear pain and bleeding. TECHNIQUE: Computed tomography (CT) of the temporal bones was performed with 75 mL Omnipaque 350 intr avenous contrast. Automated exposure control and iterative reconstruction technique were employed. Th e dose-length product was 538.28 mGy-cm. COMPARISON: CT temporal bone 05/17/2022 FINDINGS: There are sialoliths in left floor of mouth along the duct for left submandibular gland radha suring up to 1.3 x 0.8 cm. RIGHT TEMPORAL BONE: The internal auditory canal, cochlea, vestibule, vestibular aqueduct, carotid canal, jugular bulb, fa cial nerve course and ossicles are normal. There is thickening of the tympanic membrane. Prussak spac e and scutum are normal. The external auditory canal is normal. The mastoid air cells are clear. Ther e is sclerosis of the hernandez of the mastoid air cells. There is mild osteoarthritis of the temporomand ibular joint. LEFT TEMPORAL BONE: The internal auditory canal, cochlea, vestibule, semicircular canals, vestibular aqueduct, carotid ca nal, jugular bulb, facial nerve course are normal. There is material in the tympanic cavity abutting the ossicles. There is material in Prussak's space. Scutum is normal. There is thickening of the tymp anic membrane. There is material in the external auditory canal. There is mild osteoarthritis of the temporomandibular joint. There is a small mastoid effusion. There is sclerosis around the mastoid air cells. IMPRESSION: 1. Thickening of right tympanic membrane. 2. Material in the left tympanic cavity and left external auditory canal with thickening of the tympa satish membrane. Reviewed, dictated and finalized at location A. ET COUNSELOR IMPRESSION: 1. Thickening of right tympanic membrane. 2. Material in the left tympanic cavity and left external auditory canal with t hickening of the tympanic membrane.
[2024-04-02 16:11] VITALS: BP 167/65; PULSE 86; RESP 20; TEMP 36.6; O2SAT 100
[2024-04-02 18:55] VITALS: BP 153/67; PULSE 86; RESP 18; TEMP 36.1; O2SAT 99
[2024-04-02 22:58] LABS: Estimated CRCL calculation 82 ml/min; Estimated Glomerular Filt Rate > 60
--- NOTE | 2024-04-02 23:32 | ED_ITS ---
HPI - Ear Problem General Chief complaint: Ear Stated complaint: L ear bleeding Time Seen by Provider: 04/02/24 21:31 Source: patient Mode of arrival: ambulatory Limitations: no limitations History of Present Illness HPI Narrative: Patient is a 59 y/o male who presents to the ED with c/o bleeding from his L ear. Patient reports he noticed bleeding from his left ear today. He states he has history of similar symptoms in his right ear several years ago which point he was diagnosed with an ear infection and mastoiditis. He does report pain in his left ear. Denied having any symptoms yesterday. Denies fevers, cough or cold symptoms. Related Data Home Medications Medication Instructions Recorded Confirmed fluticasone furoate 200 1 inh inhalation DAILY 08/15/20 03/19/24 mcg-vilanterol 25 mcg/dose inhalation powder (Breo Ellipta) insulin glargine 100 unit/mL (3 60 unit subcut HS 08/15/20 03/19/24 mL) subcutaneous pen (Basaglar KwikPen U-100 Insulin) losartan 50 mg tablet 50 mg PO DAILY 08/15/20 03/19/24 metformin 1,000 mg tablet 1,000 mg PO BID 08/15/20 03/19/24 pen needle, diabetic 31 gauge x 08/15/20 03/19/24 5/16 (BD Ultra-Fine Short Pen Needle) trazodone 50 mg tablet 50 mg PO HS 08/15/20 03/19/24 atorvastatin 20 mg tablet 20 mg PO DAILY 05/29/22 03/19/24 empagliflozin 25 mg tablet 25 mg PO DAILY 05/29/22 03/19/24 (Jardiance) gabapentin 100 mg capsule 200 mg PO TID 05/29/22 03/19/24 hydrocodone 7.5 mg-acetaminophen 1 tablet PO Q6H PRN Pain 05/29/22 03/19/24 325 mg tablet Allergies Allergy/AdvReac Type Severity Reaction Status Date / Time No Known Allergies Allergy Verified 04/02/24 16:14 Review of Systems Review of Systems: All systems reviewed & are unremarkable except as noted in HPI. All systems reviewed & are unremarkable except as noted in HPI and below PMFSH Past Medical History Medical History Adenomatous colon polyp CAD (coronary artery disease) Cirrhosis Noted on CT on 05/29/2022. Diabetes Diabetic peripheral neuropathy Gastroesophageal reflux Gastroesophageal reflux disease History of alcohol abuse History of kidney stones History of lung cancer Patient reports history of bilateral pulmonary nodule suspicious for cancer. They were never biopsied but presumed to be malignant. He completed a marijuana treatment and the nodules essentially resolved. Hypertension Metabolic dysfunction-associated steatohepatitis (MASH) Myocardial infarction Patient reports having an MS in his 30s attributed to stress. Treated medically. No heart catheterization. Obesity Obstructive sleep apnea Pancytopenia Screening for colon cancer Thrombocytopenia Type 2 diabetes mellitus Surgical History Surgical History History of appendectomy History of orchiectomy Secondary to left-sided testicular torsion. History of right mastoidectomy (10/25/20) History of tympanoplasty Family History Family History Mother Congestive heart failure Diabetes mellitus Sibling Diabetes mellitus Other No significant family history Social History Social History Social History: Surrogate decision maker: Janny Mae, friend. Code status: Full code. Smoking status: Never smoker Alcohol intake: former Drinks per week: 1 Alcohol use details: 1 L WHISKEY PER DAY,NONE 23 YRS Substance use: never Substance use type: does not use Other substance usage details: Patient uses medical marijuana. Lack of Transportation: No Lack of Food: Never True Current Housing: I Do Not Have Housing Concerned About Future Housing: No Difficulty Paying Gas/Electric Bills: No Difficulty Paying for Meds: No Currently Unemployed: No Education: High School Diploma/GED Difficulty w/ Childcare or Family Care: No Living arrangements: with friend(s) Additional occupation/education comments: Disabled. Gender identity (if verbalized by the patient): Male Spiritual care concerns: No Exam Narrative: GENERAL: Well appearing, obese with BMI of 34.6, non-toxic, in no acute distress. HEAD: Normocephalic, atraumatic. ENT: L EAC with some dark red blood present. Unable to visualize inferior TM due to blood but no large obvious perforation. Mild erythema noted to TM. No peeling drainage. Some tenderness over left mastoid region. No significant swelling, warmth, erythema of mastoid region. RESPIRATORY: Airway patent, respirations nonlabored. CARDIOVASCULAR: Regular rate and rhythm MUSCULOSKELETAL: Moves all extremities. No gross deformities. SKIN: Warm, dry, normal color. NEURO: A&O X3. Speech clear. No focal deficits. PSYCHIATRIC: Appropriate mood and affect. Normal interaction. Course Vital Signs Vital signs: Vital Signs Temperature 97.8 F 04/02/24 16:11 Pulse Rate 86 04/02/24 16:11 Respiratory Rate 20 04/02/24 16:11 Blood Pressure 167/65 H 04/02/24 16:11 Pulse Oximetry 100 04/02/24 16:11 Oxygen Delivery Room Air 04/02/24 16:11 Temperature 97.0 F L 04/02/24 18:55 Pulse Rate 79 04/02/24 23:52 Respiratory Rate 15 04/02/24 23:52 Blood Pressure 148/90 H 04/02/24 23:52 Pulse Oximetry 100 04/02/24 23:52 Oxygen Delivery Room Air 04/02/24 16:11 Medical Decision Making MDM Narrative Medical decision making narrative: Patient presented to ED with bleeding from left ear today. Patient did have some tenderness over the left mastoid region. No erythema or obvious mastoid inflammation on exam. He does have history of previous mastoiditis. CT scan of mastoids today without evidence of recurrent mastoiditis. Does show thickening of TM. Will treat as otitis media with Augmentin. Will also cover for potential TM perf with Ciprodex ear drops. Patient advised to have close follow-up with ENT for further evaluation. Given strict return precautions. He agrees with plan. Discharged in stable condition. Medical Records Medical records reviewed: Yes I reviewed the external patient's medical records. Vital Signs Vital Signs: Vital Signs Temperature 97.8 F 04/02/24 16:11 Pulse Rate 86 04/02/24 16:11 Respiratory Rate 20 04/02/24 16:11 Blood Pressure 167/65 H 04/02/24 16:11 Pulse Oximetry 100 04/02/24 16:11 Oxygen Delivery Room Air 04/02/24 16:11 Temperature 97.0 F L 04/02/24 18:55 Pulse Rate 79 04/02/24 23:52 Respiratory Rate 15 04/02/24 23:52 Blood Pressure 148/90 H 11/21/24 23:52 Pulse Oximetry 100 04/02/24 23:52 Oxygen Delivery Room Air 04/02/24 16:11 Lab Data Lab results reviewed: Yes I reviewed the patient's lab results. 04/02/24 22:57 Labs: Lab Results 04/02/24 Range/Units 22:57 Creatinine 1.20 (0.8-1.5) mg/dL Estim Creat Clear Calc 82 ml/min Estimated GFR > 60 (59 - ) Imaging Data Attestation: I personally reviewed and interpreted this imaging study as follows: Radiologist's impression: ITS Impressions Internal Auditory Canal CT 04/02/24 23:07 IMPRESSION: 1. Thickening of right tympanic membrane. 2. Material in the left tympanic cavity and left external auditory canal with thickening of the tympanic membrane. Discharge Plan Discharge Clinical Impression: Bleeding from left ear, Otitis media Patient Disposition: Home, Self-Care Condition: Stable Instructions: Antibiotic Form, Ear Infection (ED), Earache (ED) Additional Instructions: Take antibiotics as prescribed. Utilize antibiotic ear drops as prescribed. Avoid placing anything into ear. Recommend Tylenol and ibuprofen as needed for pain. Follow-up with ENT for further evaluation. Return to the ED if you experience worsening or severe symptoms/pain, pain or redness behind ear, persistent fevers, or any other symptoms of concern. Prescriptions: New amoxicillin-pot clavulanate 875-125 mg tablet 1 tablet PO Q12H 10 Days Qty: 20 0RF ciprofloxacin-dexamethasone 0.3-0.1 % drops,suspension 4 drp LEFT EAR Q12H 7 Days Qty: 7.5 0RF No Action lidocaine 1.8 % adhesive patch,medicated 1 patch topical DAILY Qty: 30 0RF Rx Instructions: leave on most painful area for up to 12 hrs. do not use more than 1 patch in 24 hours. losartan 50 mg tablet 50 mg PO DAILY trazodone 50 mg tablet 50 mg PO HS metformin 1,000 mg tablet 1,000 mg PO BID (DME) pen needle, diabetic [BD Ultra-Fine Short Pen Needle] 31 gauge x 5/16 n eedle MISCELLANEOUS fluticasone furoate-vilanterol [Breo Ellipta] 200-25 mcg/dose blister with device 1 inh INHALATION DAILY insulin glargine [Basaglar MarlonPen U-100 Insulin] 100 unit/mL (3 mL) insulin pen 60 unit SUBCUT HS Rx Instructions: 60 units daily hs atorvastatin 20 mg tablet 20 mg PO DAILY hydrocodone-acetaminophen 7.5-325 mg tablet 1 tablet PO Q6H PRN (Reason: Pain) gabapentin 100 mg capsule 200 mg PO TID Jardiance 25 mg tablet 25 mg PO DAILY Follow-up/Referrals: Paige,SIMONA Alfaro [Primary Care Provider] - Time of Disposition: 23:43
[2024-04-02] MEDS: AMOXICILLIN/CLAVULANATE K 875-125 MG TAB 1 TABLET PO (23:51)
[2024-04-02 23:52] VITALS: BP 148/90; PULSE 79; RESP 15; O2SAT 100
== END 2024-04-02 23:54 | disposition home or self-care (01) ==
PROVIDERS: Emergency Provider Physician Assistant; PCP Registered Nurse
DX: H92.22 Otorrhagia, left ear (principal); H66.92 Otitis media, unspecified, left ear; I25.10 Atherosclerotic heart disease of native coronary artery without angina pectoris; I10 Essential (primary) hypertension; I25.2 Old myocardial infarction; E11.42 Type 2 diabetes mellitus with diabetic polyneuropathy; E66.9 Obesity, unspecified; Z68.34 Body mass index [BMI] 34.0-34.9, adult; G47.33 Obstructive sleep apnea (adult) (pediatric); K21.9 Gastro-esophageal reflux disease without esophagitis; Z86.0101 Personal history of adenomatous and serrated colon polyps; Z87.442 Personal history of urinary calculi; Z85.118 Personal history of other malignant neoplasm of bronchus and lung; Z90.79 Acquired absence of other genital organ(s); Z79.84 Long term (current) use of oral hypoglycemic drugs; Z79.899 Other long term (current) drug therapy; Z79.4 Long term (current) use of insulin
CPT/HCPCS: 70481; 99284; A9270; Q9967

== ENCOUNTER 2024-09-04 09:35 | Outpatient (CLI) | payer MEDICARE, MEDICAID, SELFPAY ==
--- NOTE | ~2024-09-04 | US_ITS ---
Limited Abdominal Sonogram: Real-time sonographic imaging of the right upper quadrant was performed. Clinical History: Cirrhosis Findings: The liver appears echogenic, with no evidence of mass lesion or bile duct dilatation. Main portal vein demonstrates normal direction of flow. The gallbladder is well distended, and appears no rmal with no evidence of gallstone or wall thickening. The common bile duct measures 2 mm. The visua lized pancreas, aorta, and IVC are unremarkable. Impression: Diffuse fatty infiltration of the liver. Reviewed, dictated and finalized at location M. Impression: Diffuse fatty infiltration of the liver.
--- OUTSIDE RECORDS SUMMARY | 2024-09-04 09:46 | XMS_ITS | Clinical Summary ---
Author Organization [facility] Address [address] [place] [address] Care Team Providers Care Sulfuric Acid Plant Operator Name Role Phone Angelina Gibson EXPORT TRAFFIC DEPARTMENT MANAGER-FINANCIAL INSTITUTION TREASURER Primary Care Provider Source Comments [facility],non-owned Affiliates and Associated Physician Practices is amultiple site organization consisting of ambulatory clinics and hospital sitesin [place], [place], [place] and [place]. This disclosure is being madepursuant to the Care Everywhere program and may not contain all information available regarding this patient. Last updated 18.[facility] Allergies No known active allergies Medications * Be aware that medications may not be up to date on this document. Alwaysverify current medications with the patient. metFORMIN (GLUCOPHAGE) 1000 MG tablet Take 1 (one) tablet by mouth 2 times daily with morning and evening meal 01/31/20 17 Active traZODone (DESYREL) 50 MG tablet Take 1 (one) tablet by mouth at bedtime Active glyBURIDE (DIABETA; MICRONASE) 5 MG tablet Take 1 (one) tablet by mouth 2 times daily with morning and evening meal Take with a meal. Active sertraline (ZOLOFT) 100 MG tablet Take 1 (one) tablet by mouth once daily Active hydroCHLOROthi azide (HYDRODIURIL) 12.5 MG Take 2 (two) tablets by mouth once daily Active Dulaglutide (TRULICITY SC) Activ e acetaminophen (TYLENOL) 325 MG tablet Take 2 (two) tablets by mouth every 4 hours as needed for Pain or Headache (for pain 1-7) Maximum allowable Acetaminophen amount = 4 Grams (4000 mg) / 24 hours. 30 tablet 11/01/19 21 Active gabapentin (NEURONTIN) 100 MG capsule Take 1 (one) capsule by mouth 3 times daily as needed (facial pain) 30 capsule 3 11/01/19 21 Active glucose 4 G chew tablet Take 1 (one) tablet by mouth as needed for Low blood sugar 30 tablet 11 11/01/19 21 Active albuterol HFA (PROVENTIL; VENTOLIN; PROAIR) 108 (90 Base) MCG/ACT inhaler Inhale 2 (two) puffs by mouth every 4 hours as needed 03/24/20 21 Active fluticasone-vi lanterol (BREO ELLIPTA) 200-25 MCG/INH inhaler Inhale 1 (one) puff by mouth once daily 03/24/20 21 Active atorvastatin (Lipitor) 40 MG tablet Take 1 (one) tablet by mouth at bedtime 09/10/19 24 Active Jardiance 25 MG tablet Take 1 (one) tablet by mouth once daily 12/05/19 24 Active naloxone HCl (Narcan) 4 MG/0.1ML nasal spray Skyforest 1 (one) spray into the nose as needed 04/10/20 23 Active ofloxacin (Floxin) 0.3 % otic solution Instill 4 (four) drops into left ear 2 times daily 10 mL 5 04/30/20 24 Active hydrOXYzine HCl (Atarax) 25 MG tablet Take 1 (one) tablet by mouth as directed 07/24/19 25 Active ZTlido 1.8 % PTCH Apply 1 patch to affected area once daily 07/23/19 25 Active Mounjaro 5 MG/0.5ML injection Inject 5 (five) mg subcutaneously every 7 days 07/17/19 25 Active HYDROcodone-ac etaminophen ([place]) 7.5-325 MG tablet Take 1 (one) tablet by mouth every 6 hours as needed pain Active HumaLOG KwikPen 100 UNIT/ML pen Inject 32 (thirty two) Units subcutaneously as directed 06/11/19 25 Active Lantus SoloStar pen Inject 80 (eighty) Units subcutaneously as directed 07/16/19 25 Active losartan (Cozaar) 100 MG tablet Take 1 (one) tablet by mouth once daily 07/23/19 25 Active omeprazole (PriLOSEC) 40 MG capsule Take 1 (one) capsule by mouth once daily 06/01/19 25 Active OMEPRAZOLE PO 025 Discontin ued(List Clean-Up) Insulin Glargine (BASAGLAR KWIKPEN SC)Indications :Diabetes Mellitus,30 Units in the morning at 7am and afternoon 7pm 025 Discontin ued(List Clean-Up) HYDROcodone-ac etaminophen (NORCO) 5-325 MG tablet Take 1 (one) tablet by mouth every 6 hours as needed 06/16/19 20 025 Discontin ued(List Clean-Up) losartan (COZAAR) 50 MG tablet Take 1 (one) tablet by mouth once daily 30 tablet 3 11/02/19 21 025 Discontin ued(List Clean-Up) insulin aspart (NOVOLOG) pen Inject 12 (twelve) Units subcutaneously 3 times daily with meals 5 Pen 3 11/01/19 21 025 Discontin ued(List Clean-Up) insulin aspart (NOVOLOG) pen Inject 0 (zero) Units to 12 (twelve) Units subcutaneously 3 times daily with meals 2 Pen 3 11/01/19 21 025 Discontin ued(List Clean-Up) Active Problems Problem Noted Date Diagnosed Date Mixed conductive and sensori neural hearing loss of both ears 03/27/2021 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 Mastoiditis 10/26/2020 Multiple closed fractures of ribs of both sides 02/07/2017 Enlarged lymph nodes 02/07/2017 Overview (08/12/2017): L inguinal Disorder of bone 02/07/2017 Overview (08/12/2017): R femur sclerotic lesion Calculus of kidney 02/07/2017 Overview (08/12/2017): R nonobstructing Other specified diseases of liver 02/07/2017 Disorder of adrenal gland 02/04/2017 Overview (08/12/2017): R 2.5cm adrenal mass Other injury of unspecified body region, initial encounter 01/31/2017 Cardiac arrhythmia 01/30/2017 DMII (diabetes mellitus, type 2) Hypertension Encounters Date Type Department Care Team Description 08/17/2024 10:00 AM CDT Office Visit [facility] - ENT [facility] [place] [phone] Jakob Vazquez MD Sensorineural hearing loss (SNHL) of right ear with restricted hearing of left ear (Primary Dx); Mixed conductive and sensorineural hearing loss of left ear with restricted hearing of right ear; Chronic diffuse otitis externa of both ears; Elevated hemoglobin A1c measurement; Bilateral chronic serous otitis media 08/17/2024 9:30 AM CDT Testing Visit [facility] - ENT [facility] [place] [phone] EnriqueRaegan peters, Romaine Sensorineural hearing loss (SNHL) of right ear with restricted hearing of left ear ; Mixed conductive and sensorineural hearing loss of left ear with restricted hearing of right ear 08/17/2024 Travel 06/24/2024 Travel 06/19/2024 Travel from Last 3 Months Immunizations Immunization Administration Dates Next Due FLU VACCINE TRI IIV3 SPLIT PF IM (FLUVIRIN) 02/10 INFLUENZA VACCINE, QUADR. (F LUZONE; FLULAVAL; FLUARIX; AFLURIA QUADRIVALENT; 6MO+), 0.5 ML (IIV4) 12/21/2021 PNEUMOCOCCAL PCV20 CONJ VAC IM 08/30/2021 Family History Medical History Relation Name Comments Diabetes - Type 2 Brother CAD (Coronary Artery Disease) Mother Diabetes - Type 2 Mother Status: De ceased Hypertension Mother Relation Name Status Comments Brother Mother Social History Tobacco Use Types Packs/Day Years Used Date Smoking Tobacco: Never Smokeless Tobacco: Never Tobacco Cessation:Counseling Given: Not Answered Alcohol Use Standard Drinks/Week Comments Not Currently 0 (1 standard drink = 0.6 oz pur e alcohol) Sex and Gender Information Value Date Recorded Sex Assigned at Not on file 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 Gender Identity Not on file Sexual Orientation Not on file Last Filed Vital Signs Vital Sign Reading Time Taken Comments Blood Pressure 112/69 08/17/2024 9:40 AM CDT Pulse 81 08/17/2024 9:40 AM CDT Temperature 36.6 C (97.8 F) 12/09/2020 10:09 AM CDT Respiratory Rate 20 12/09/2020 10:0 9 AM CDT Oxygen Saturation 97% 12/09/2020 10: 09 AM CDT Inhaled Oxygen Concentration - - Weight 118.1 kg (260 lb 6.4 oz) 08/17/2024 9:40 AM CDT Height 188 cm (6' 2 ) 08/17/2024 9:40 AM CDT Body Mass Index 33.43 08/17/2024 9:40 AM CDT Plan of Treatment Upcoming Encounters Date Type Department Care Team (Late st Contact Info) Description 09/14/2024 8:00 AM CDT Office Visit [facility] - Endocrinology [address] [place] [phone] Itzel Gruber MD [address] [place] [address] [place] [phone] 08/25/2025 9:30 AM CDT Testing Visit [facility] - ENT [address] [place] [phone] Raegan Rodriguez AuD [address] [place] [address] [address] [place] [address] 08/25/2025 10:00 AM CDT Office Visit [facility] - ENT [address] [place] [phone] Jakob Vazquez MD [address] [place] [address] DE[place] [address] Health Maintenance Due Date Last Done Comments COLOGUARD (AGES 45-75) - COLON CA SCREENING 1965 COLON MONITORING 1965 COLONOSCOPY - COLON CA SCREENING 1965 CT COLONOGRAPHY - COLON CA SCREENING 1965 Colorectal Cancer Screening 1965 FIT - COLON CA SCREENING 1965 FLEX SIG - COLON CA SCREENING 1965 Opioid Medication Agreement - Annual 1965 DTAP/TDAP/TD VACCINES (1 - Tdap) 01/10/1984 HEPATITIS B VACCINE (1 of 3 - 19+ 3-dose series) 01/10/1984 ZOSTER VACCINE (1 of 2) 2015 Opioid Medication Urine Drug Screening 01/30/2018 01/30/2017 DIABETES RETINOPATHY SCREENING 10/28/2020 DIABETES-FOOT EXAM WITH MONOFILAMENT 10/28/2020 COVID-19 VACCINE ( season) 2024 DEPRESSION SCREENING 05/13/2024 DIABETES - URINE PROTEIN SCREENING 05/13/2024 01/26/2021 MEDICARE AWV CALENDAR YEAR 2024 DIABETES-HGB A1C 10/23/2024 07/23/2024, , 04/03/2024, Additional history exists DIABETES-SERUM CREATININE 06/11/20252024, 06/11/2024, 01/26/2021, Additional history exists HEPATITIS C SCREENING Completed 10/29/2020 HIV SCREENING Completed 10/29/2020 PNEUMOCOCCAL VACCINE 50+ Completed 08/30/2021 INFLUENZA VACCINE Completed 02/21/2024, 12/21/2021 HIB VACCINE Aged Out No longer eligi ble based on patient's age to complete this topic HPV VACCINE Aged Out No longer eligi ble based on patient's age to complete this topic MENINGOCOCCAL (Group B) VACCINE SHARED DECISION-MAKING Aged Out No longer eligible based on patient's age to complete this topic MENINGOCOCCAL GROUPS A/C/Y/W VACCINE Aged Out No longer eligible based on patient's age to complete this topic Procedures Procedure Name Priority Date/Time Associated Diagnosis Comments AUDIOLOGY/TYMPANOMETRY ORDER Routine 08/17/2024 9:27 AM CDT COMPREHENSIVE METABOLIC PANEL Routine 11/10/2020 8:24 AM CDT High risk medications (not anticoagulants) long-term use Mastoiditis of right side HEPATITIS C AB SCREEN RFLX NAAT QUANT Routine 10/29/2020 4:54 AM CDT HIV-1 HIV-2 ANTIBODY + HIV P24 AG PANEL AM Draw 10/29/2020 4:54 AM CDT HEMOGLOBIN A1C Routine 10/28/2020 8:22 AM CDT DRUG ABUSE PANEL 10-20+ETHANOL URINE NO CONFIRM STAT 01/30/2017 8:13 PM CDT from Last 3 Months or Most Recently Relevant to Health Maintenance Results * AUDIOLOGY/TYMPANOMETRY ORDER (08/17/2024 9:27 AM CDT) Dilan Raegan Rodriguez AuD - 08/17/2024 10:06 AM CDT History: Chente Nathan arrived for a hearing evaluation. Patient reports hearing loss, tinnitus, dizziness, and otalgia. He has had surgery in the right ear. He feels the left ear is doing the same thing the right did before it was determined he needed surgery. He uses BTE aids from [employer]. Results: Puretone air/bone conduction testing revealed a moderate sloping to severe SN hearing loss in the right ear and a moderately severe sloping to profound mixed hearing loss in the left ear. A lot of inconsistencies were noted during testing and thresholds are likely better than reported, based on poor WHEEL SETTER/SRT agreement. Speech understanding was excellent in the right ear and excellent in the left ear. When compared to the previous hearing test, today's results do indicate a decrease in hearing for both ears. Immittance measures revealed a Type B tympanogram in the right ear, indicating abnormal middle ear function. Results for the left ear revealed a Type B with large ECV tympanogram, indicating abnormal middle ear function in that ear. These results were discussed in detail with the patient and all pertinent questions were answered. Recommendations: 1) ENT consult. 2) Re check per medical recommendation, annually, or if a change in hearing is suspected. 3) Hearing protection in noise. 4) Continue use of amplification. Romaine Rubin. [facility] Clinical Architectural Technologist [facility]-Department of Otolaryngology/Audiology [facility] [address] [place] [address]. ([facility]) [place] [address] Raegan Gavin AUDIOLOGY SERVICES ORDERABLES F inal Result * (ABNORMAL) COMPREHENSIVE METABOLIC PANEL (11/10/2020 8:24 AM CDT) BUN 17 7 - 26 mg/dL 11/10/2020 3:02 PM CDT [facility] Creatinine 1.00 0.71 - 1.16 mg/dL 11/10/2020 3:02 PM [facility] Sodium 137 136 - 145 mmol/L 11/10/2020 3:02 PM [facility] Potassium 3.9 3.5 - 4.5 mmol/L 11/10/2020 3:02 PM [facility] Chloride 104 98 - 107 mmol/L 11/10/2020 3:02 PM [facility] CO2 26 22 - 29 mmol/L 11/10/2020 3:02 PM [facility] Glucose 210(H) 70 - 115 mg/dL 11/10/2020 3:02 PM [facility] Calcium 8.9 8.4 - 10.2 mg/dL 11/10/2020 3:02 PM [facility] Protein Total 7.3 6.0 - 8.3 g/dL 11/10/2020 3:02 PM [facility] Albumin 3.4 3.4 - 5.0 g/dL 11/10/2020 3:02 PM [facility] Bilirubin Total 0.8 0.2 - 1.2 mg/dL 11/10/2020 3:02 PM [facility] Alkaline Phosphatase 70 40 - 150 U/L 11/10/2020 3:02 PM [facility] ALT 37 5 - 55 U/L 11/10/2020 3:02 PM [facility] AST 33 5 - 34 U/L 11/10/2020 3:02 PM [facility] Anion Gap 11 8 - 18 11/10/2020 3:02 PM [facility] BUN/Creatinine Ratio 17 7 - 23 11/10/2020 3:02 PM [facility] Osmolality Calculated 292 270 - 300 mOsm/kg 11/10/2020 3:02 PM [facility] Albumin/Globulin Ratio 0.9(L) 1.1 - 2.3 11/10/2020 3:02 PM [facility] eGFR by CKD-EPI 84(L) >=90 mL/min/1.7 3 m2 11/10/2020 3:02 PM [facility] Blood BLOOD SPECIMEN / Unknown Venipuncture / Unknown 11/10/2020 8:24 AM CDT 11/10/2020 2:25 PM CDT Savannah [place] MD LAB - CHEMISTRY MEGHA PENA Final Result Performing Organization Address [facility] Co de Phone Number [address] [address], [facility] [phone] * HEPATITIS C AB SCREEN RFLX NAAT QUANT (10/29/2020 4:54 AM CDT) [facility] Hepatitis C Antibody Non-react ciara Non-reac tive 10/29/2020 6:03 AM CDT [facility] Comment:Hepatitis C Antibody screen indicates no serologic evidence of past or current infection with Hepatitis C Virus. Patients with unexplained liver disease who are immunocompromised or suspected of having acute Hepatitis C infection may benefit from Nucleic Acid Test (NAWAF) for Hepatitis C Viral RNA to confirm Hepatitis C status. Blood BLOOD SPECIMEN / Unknown Lab Venipuncture / Unknown 10/29/2020 4:54 AM CDT 10/29/2020 5:19 AM CDT Mike Block MD LAB - CHEMISTRY ORDERABLES Fi nal Result Performing Organization Address [facility] Co de Phone Number [address] [address], [place] [phone] * HIV-1 HIV-2 ANTIBODY + HIV P24 AG PANEL (10/29/2020 4:54 AM CDT) Pathologist [facility] HIV Antigen/Antibod y 1 & 2 Non-reacti ve Non-react ciara 10/29/2020 6:03 AM CDT [facility] Comment:Neither HIV-1 p24 An tigen nor HIV-1/HIV-2 Antibodies are detected. Blood BLOOD SPECIMEN / Unknown Lab Venipuncture / Unknown 10/29/2020 4:54 AM CDT 10/29/2020 5:19 AM CDT Mike Block MD LAB - CHEMISTRY ORDERABLES Fi nal Result Performing Organization Address [facility] Co de Phone Number [facility] [address] [place] [address], [facility] [phone] * (ABNORMAL) HEMOGLOBIN A1C (10/28/2020 8:22 AM CDT) Hemoglobin A1c 8.6(H) 4.4 - 6.3 % 10/28/2020 9:37 AM CDT [facility] Estimated Average Glucose 200 mg/dL 10/28/2020 9:37 AM CDT [facility] Comment: HbA1c Interpretation: Treatment target values recommended by ADA and other clinical organizations should be used to evaluate metabolic control in patients. Treatment Target Values: Normal : < 5.7% Pre-diabetes: 5.7-6.4% Diabetes: Equal to or greater than 6.5% Reference: [place] Diabetes Association Standards of Care in Diabetes -2014 In patients 70 years and older consider HbA1c target range of 7.0-7.5% Reference: Diabetes Mellitus in Older People: Position Statement on behalf of the International Association of Gerontology and Geriatrics (IAGG), the Diabetes Working Democrat for Older People (EDWPOP), and the International Task Force of Experts in Diabetes. Gurjit Samuel, et al. J [employer] Medical Directors Association. 2012 Test results diagnostic of diabetes should be repeated for confirmation. The Sebia Capillary 2 assay for the measurement of HbA1c is a National Glycohemoglobin Standardization Program (NGSP)certified method. Blood BLOOD SPECIMEN / Unknown Lab Venipuncture / Unknown 10/28/2020 8:22 AM CDT 10/28/2020 8:34 AM CDT us Zac Ferguson MD LAB - CHEMISTRY ORDERABLE S Final Result [facility] [address] [place] [address], [facility] [phone] * (ABNORMAL) DRUG ABUSE PANEL 10-20+ETHANOL URINE NO CONFIRM (01/30/2017 8:13 PM CDT) [facility] Amphetamines Screen Urine Negative Negative : < 1000 ng/mL [facility] Barbiturates Screen Urine Negative Negative : < 200 ng/mL [facility] Benzodiazepine Screen Urine Negative Negative : < 200 ng/mL [facility] Opiates Urine Positive(A) Negative : < 300 ng/mL [facility] Comment: Positive urine opiate screening results should be confirmed by another generally accepted non-immunological method such as gas chromatography or mass spectrometry. Cocaine Metabolites Urine Negative Negative : < 300 ng/mL [facility] Phencyclidine Screen Urine Negative Negative : < 25 ng/ml [facility] Cannabinoids Screen Urine Negative Negative : <50 ng/mL [facility] Methadone Screen Urine Negative Negative : < 300 ng/mL [facility] Urine specimen (specimen) URINE / Unknown 01/30/2017 8:13 PM CDT 01/30/2017 8:13 PM CDT Narrative [facility] - 01/30/2017 8:33 PM CDT The Urine Toxicology Screening Panel does not screen for Propoxyphene, Meprobamate, Carisoprodol, Trazodone, xcso-ayy-htuicxn medications and/or volatiles (Acetone, Isopropanol, Methanol or Ethylene Glycol). Ethanol, Salicylate, Acetaminophen, Tricyclic Antidepressants and several therapeutic drugs may be individually assayed in serum or plasma specimen. Toxicology testing by the [facility] is an aid to medical diagnosis and treatment of patients. No documented chain of custody was maintained. Results are intended to be used for clinical purposes only. Imelda Barrera MD LAB - URINE CHEMISTRY ORDERABLES Final Result [facility] [address] [place] [address] from Last 3 Months or Most Recently Relevant to Health Maintenance Insurance MEDICAID - OUT OF STATE [place]ID - [place] [facility] MANAGED MEDICARE ADV Advance Directives * Full Code (Latest Code Status on File) Date Activated Date Inactivated Comments 10/28/2020 1:25 AM 10/31/2020 8:47 PM Care Teams Sulfuric Acid Plant Operator Relationship Specialty Start Date End Date Angelina Gibson, EXPORT TRAFFIC DEPARTMENT MANAGER-FINANCIAL INSTITUTION TREASURER [address] [place] [address] [phone] PCP - General 05/21/19
--- OUTSIDE RECORDS SUMMARY | 2024-09-04 09:46 | XMS_ITS | Encounter Summary ---
Author Organization [facility] Address [address] [place] [address] Care Team Providers Care Braddisher Name Role Phone PaigeAngelina mont[place] Jas MCKENNA Primary Care Provider [phone] Eliu Garcia MD Unavailable [phone] Encounter Details Date Type Department Care Team (Late st Contact Info) Description 03/20/2023 RunMyProcess Message Enc [facility] Family Medicine - [place] [address], [address] [place] [address] eCert, [facility] Provider check in Social History Tobacco Use Types Packs/Day Years Used Date Smoking Tobacco: Never Smokeless Tobacco: Never Comments:not a smoker Alcohol Use Standard Drinks/Week Comments Not Currently 0 (1 standard drink = 0.6 oz pur e alcohol) rare AUDIT-C Answer Date Recorded Frequency of Alcohol Consumption Monthly or less 06/02/2018 Average Number of Drinks 3 or 4 019 Frequency of Binge Drinking Not on file 05/14 Overall Financial Resource Strain (CARDIA) Answe r Date Recorded How hard is it for you to pa y for the very basics like food, housing, medical care, and heating? Hard 06/14/2022 PHQ-2 Answer Date Recorded Patient Health Questionnaire-2 Score 0 10/11/2022 Hunger Vital Sign Answer Date Recorded Within the past 12 months, y ou worried that your food would run out before you got the money to buy more. Never true 06/14/19 23 Within the past 12 months, t he food you bought just didn't last and you didn't have money to get more. Never true 06/14/2022 PRAPARE - Transportation Answer Date Re corded In the past 12 months, has l ack of transportation kept you from medical appointments or from getting medications? No 06/2022 In the past 12 months, has l ack of transportation kept you from meetings, work, or from getting things needed for daily living? No 06/14/2022 Housing Stability Vital Sign Answer Sunil e Recorded In the last 12 months, was t here a time when you were not able to pay the mortgage or rent on time? No 06/14/2022 In the last 12 months, how many places have you lived? 1 06/14/2022 In the last 12 months, was t here a time when you did not have a steady place to sleep or slept in a fdc (including now)? No 06/14/2022 Sex and Gender Information Value Date Recorded Sex Assigned at Male 07/23/2024 8:31 AM CDT Legal Sex Male 7:15 PM CDT Gender Identity Not on file Sexual Orientation Not on file documented as of this encounter Plan of Treatment Not on file documented as of this encounter Goals Goal Patient Goal Type Associated Problems Recent Progress Patient-Stated? Author Consistently take medications as Prescribed Lifestyle On track(2022 3:24 PM CDT) No Nanci Ortega, RN Reduce HBA1C Levels Below 9% Lifestyle On track(2022 8:10 AM CDT) No Nanci Ortega, RN Note: Patient will manage diabetes and report any symptoms of hypo/hyperglycemia to provider. Patient to follow diabetic medication regimen. Patient will maintain a carb consistent diet and avoid concentrated sweets. Patient will monitor blood sugar readings at least twice a day and call PCP, CC or Endocrinology with consistent readings <80 and >200. If symptoms of excessive hunger, blurred vision, shakiness, light headedness, anxiety present, check blood sugar if able or treat the hypoglycemia. If glucose is less than 70, take 15 grams of glucose that is half a cup of juice or milk or regular soda or 3 glucose tablets and recheck in 15 minutes. Patient will recognize causes, signs and symptoms of hyperglycemia: Causes: Skipping insulin or medications, eating more than usual, decreased activity, or increased stress or sickness. Symptoms: Increased thirst, frequent urination, blurred vision, feeling weak or unusually tired. Take medications as directed including sliding scale insulin Follow recommended diet plan and monitor carbohydrate intake Increase activity. 09/25/22: A1C: 8.4 on 09/19/22 06/14/22: A1C on 05/21/22: 10.8. Scheduled patient appointment with (Curriculum Development Manager) on 09/27/22 at 10:00 am. 07/25/22: Patient not taking medications as directed or checking his BG as directed. See note for complete details. Establish Plan for Symptom Monitoring Lifestyle On track(2022 3:24 PM CDT) Sara Felix, RN Note: DM: Patient to follow diabetic medication regimen. Patient will maintain a carb consistent diet and avoid concentrated sweets. Patient will monitor blood sugar readings at least twice a day and call provider with consistent readings <80 and >200. If symptoms of excessive hunger, blurred vision, shakiness, light headedness, anxiety present, check blood sugar if able or treat the hypoglycemia. If glucose is less than 70, take 15 grams of glucose that is half a cup of juice or milk or regular soda or 3 glucose tablets and recheck in 15 minutes Establish Plan for Symptom Monitoring Lifestyle On track(2022 3:24 PM CDT) Sara Felix, RN Note: HTN: Patient to monitor blood pressure daily and record readings and call provider with consistent readings >140/90. Patient will maintain a low sodium diet . Patient will call provider with any visual disturbances, headaches or dizziness. Patient to take all medications as prescribed. documented as of this encounter Visit Diagnoses Not on filedocumented in this encounter Additional Health Concerns Assessment Noted Time PHQ-9 Depression Total Score: 6 07/25/19 23 4:25 PM CDT documented as of this encounter Care Teams Braddisher Relationship Specialty Start Date End Date Angelina Gibson APNP [address] [place] [address] PCP - General NURSE PRACTITIONER 03/14/18 Eliu Garcai MD [facility], [address] [place] [address] Physician CARDIOVASCULAR DISEASE 03/06/23 documented as of this encounter
--- OUTSIDE RECORDS SUMMARY | 2024-09-04 09:46 | XMS_ITS | Encounter Summary ---
Author Organization [facility] Address [address] [place] [address] Care Team Providers Care Broker In Charge Name Role Phone Angelina Gibson AIRCRAFT PILOT-PROJECT ENG Primary Care Provider Reason for Visit * Reason Onset Date Comments Appointment 04/03/2024 Encounter Details Date Type Department Care Team (Late st Contact Info) Description 04/03/2024 Telephone [facility] - ENT [address] [place] [phone] Jakob Vazquez MD [address] [place] [address] DE[place] [address] Appointment Social History Tobacco Use Types Packs/Day Years Used Date Smoking Tobacco: Never Smokeless Tobacco: Never Alcohol Use Standard Drinks/Week Comments Not Currently 0 (1 standard drink = 0.6 oz pur e alcohol) Sex and Gender Information Value Date Recorded Sex Assigned at Not on file 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 Answer Date of Assessment Author Yes 10/28/2020 12:05 AM Rozina Ayala RN * Is person blind or have serious difficulty seeing? Answer Date of Assessment Author No 10/28/2020 12:05 AM Rozina Ayala RN * Does person have serious difficulty walking/climbing stairs? Answer Date of Assessment Author No 10/28/2020 12:05 AM Rozina Ayala RN * Does person have difficulty dressing/bathing? Answer Date of Assessment Author No 10/28/2020 12:05 AM Rozina Ayala RN * Does person have difficulty doing errands alone? Answer Date of Assessment Author No 10/28/2020 12:05 AM CDT Rozina Knight RN documented as of this encounter Mental Status * Does person have difficulty concentrating/remembering/making decisions? Answer Entry Date Author No 10/28/2020 12:05 AM CDT Rozina Knight RN documented in this encounter Miscellaneous Notes * Telephone Encounter - Alicia Lozada - 04/03/2024 3:28 PM CST Current Provider: Taylor Reason for Call: pt has ear infection and is bleeding inside the ear Patient Call Back Number: [phone] YEAST OPERATOR documented in this encounter Plan of Treatment Upcoming Encounters Date Type Department Care Team (Late st Contact Info) Description 09/14/2024 8:00 AM CDT Office Visit [facility] - Endocrinology [address] [place] [phone] Itzel Gruber MD [address] [place] [address] DIV [place] [address] 08/25/2025 9:30 AM CDT Testing Visit [facility] - ENT [address] [place] [phone] Jennifer Raegan, Romaine [address] [place] [address] [address] [place] [address] 08/25/2025 10:00 AM CDT Office Visit [facility] - ENT [address] [place] [phone] Jakob Vazquez MD [address] [place] [address] [address]L DEPT [place] [address] documented as of this encounter Visit Diagnoses Not on filedocumented in this encounter Care Teams Broker In Charge Relationship Specialty Start Date End Date Angelina Gibson, AIRCRAFT PILOT-PROJECT ENG [address] [place] [address] PCP - General 05/21/19 documented as of this encounter
--- OUTSIDE RECORDS SUMMARY | 2024-09-04 09:46 | XMS_ITS | Encounter Summary ---
Author Organization [facility] Address [address] [place] [address] Care Team Providers Care Grinder Brake Lining Name Role Phone PaigeAngelina Jas MCKENNA Primary Care Provider [phone] Eliu Garcia MD Unavailable [phone] Encounter Details Date Type Department Care Team (Latest Contact Info) Description 08/17/2024 Scan [facility] Scanned, Doc [facility] Social History Tobacco Use Types Packs/Day Years [...] Date Recorded Patient Health Questionnaire-2 Score 0 06/11/2024 Hunger Vital Sign Answer Date Recorded Within [...] place to sleep or slept in a long term (including now)? No 06/14/2022 Sex and Gender [...] On track(2022 3:24 PM CDT) No Nanci Ortega RN Reduce HBA1C Levels Below 9% Lifestyle On track(2022 8:10 AM CDT) No Nanci Ortega RN Note: Patient will manage diabetes and [...] on 05/21/22: 10.8. Scheduled patient appointment with (Manager Quality Improvement) on 09/27/22 at 10:00 am. 07/25/22: Patient [...] documented as of this encounter Care Teams Grinder Brake Lining Relationship Specialty Start Date End Date Angelina Gibson APNP [address] [place] [phone] PCP - General NURSE PRACTITIONER 03/14/18 Eliu Garcia MD [facility], [address] [place] [address] Physician CARDIOVASCULAR DISEASE 03/06/23 documented as of this encounter
--- OUTSIDE RECORDS SUMMARY | 2024-09-04 09:46 | XMS_ITS | Data Portability ---
Author Organization [facility] Address [address] [place] [address] Care Team Providers Care Director Of Investigations Name Role Phone JOCELYNOLEG EDDY Primary Care Provider Assessment No assessment recorded. Plan of Treatment Reminders Order Date Submit Date Provider Last Modified By Organization Details Last Modified Time Details Appointments None recorded. Lab BMP, serum or plasma 2018 [facility] ([facility]), [address] [place], [address], 9 19:53:37 CBC 2018 [facility] (Lab), [address] [place], [address], 9 19:36:29 Referral None recorded. Procedures None recorded. Surgeries tenotomy, open, tendon flexor; toe (SURG) [facility] [address] [place], [address], 0 14:06:16 ostectomy, complete excision of metatarsal head(s) (SURG) 2018 [facility] ([facility] [address] [place], [address], 0 14:05:37 cheilectomy (SURG) 2018 [facility] ([facility] [address] [place], [address], 0 14:06:52 Imaging XR, foot, 3 or more view 2018 019 [email or web address] 7 [facility] [address], [place], [address], 9 15:07:16 XR, foot, 3 or more view 2018 019 [email or web address] Not available 9 14:46:02 Medication Orders None recorded. Patient TargetsNo targets recorded. Patient Instructions Encounter Date Encounter Id Patient Instructions Last Modified By Organization Details Last Modified Time 02/25/2019 [id number] rhythm strip, EKG* [email or web address] Not available 02/25/2019 15:07:59 preoperative clearance* [email or web address] Not available 07/07/2019 12:08:56 Reason for Referral None Reported. Results Created Date Observation Date Name Description Value Unit Range Abnormal Flag Note LastModifiedBy Organization Detail LastModifiedTime 02/26/20 19 02/25/2019 CBC WBC 5.6 K/uL 3.4-10 .8 Not Available [facility] [address] [place], [address], 02/25/2019 19:36:28 02/26/20 19 02/25/2019 CBC red blood count 4.6 M/uL 4.5-6. 3 Not Available [facility] [address], [place], [address], 02/25/2019 19:36:28 02/26/20 19 02/25/2019 CBC hemoglobin 13.8 g/dL 13.5-1 7.5 Not Available [facility] [address] [place], [address], 02/25/2019 19:36:28 02/26/20 19 02/25/2019 CBC hematocrit 42.3 % 40.0-5 2.0 Not Available [facility] [address], [place], [address], 02/25/2019 19:36:28 02/26/2002/25/2019 CBC MCV 93 fL 80-95 Not Available [facility] ([facility]) [address] [place], [address], 02/25/2019 19:36:28 02/26/2002/25/2019 CBC MCH 30 pg 27-32 Not Available [facility] ([facility]) [address], [place], [address], 02/25/2019 19:36:28 02/26/20 19 02/25/2019 CBC MCHC 33 g/dL 32-36 Not Available [facility] (Lab) [address], [place], [address], 02/25/2019 19:36:28 02/26/2002/25/2019 CBC platelets 129 K/uL 155-37 9 low Not Available [facility] (Lab) [address] [facility], [place], [address], 02/25/2019 19:36:28 02/26/2002/25/2019 CBC RDW 14.4 % 11.5-1 4.5 Not Available [facility] (Lab) [address], [place], [address], 02/25/2019 19:36:28 02/26/20 19 02/25/2019 CBC MPV 11.6 fL 8.9-12 .7 Not Available [facility] (Lab) [address] [place], [address], 02/25/2019 19:36:28 02/26/2002/25/2019 BMP, serum or plasm a glucose, serum 148 mg/dL 65-99 high Not Available [facility]) [address] [place], [address], 02/25/2019 19:53:37 02/26/2002/25/2019 BMP, serum or plasm a BUN 27 mg/dL 8-26 high Not Available [facility] (Lab) [address] [place], [address], 02/25/2019 19:53:37 02/26/20 19 02/25/2019 BMP, serum or plasm a creatinine, serum 1.12 mg/dL 0.50-1 .40 Not Available [facility] (Lab) [address], [place], [address], 02/25/2019 19:53:37 02/26/20 19 02/25/2019 BMP, serum or plasm a BUN/creatnin e ratio 24.1 Not Available [facility] (Lab) [address], [place], [address], 02/25/2019 19:53:37 02/26/2002/25/2019 BMP, serum or plasm a sodium, serum 139.7 mEq/L 136.0- 144.0 Not Available [facility] (Lab) [address], [place], [address], 02/25/2019 19:53:37 02/26/2002/25/2019 BMP, serum or plasm a potassium, serum 4.6 mmol/ L 3.5-5. 3 Not Available [facility] (Lab) [address], [place], [address], 02/25/2019 19:53:37 02/26/2002/25/2019 BMP, serum or plasm a chloride, serum 103 mmol/ l 101-11 1 Not Available [facility] (Lab) [address], [place], [address], 02/25/2019 19:53:37 02/26/2002/25/2019 BMP, serum or plasm a carbon dioxide total 22.9 mmol/ L 21.0-3 2.0 Not Available [facility] (Lab) [address] [place], [address], 02/25/2019 19:53:37 02/26/2002/25/2019 BMP, serum or plasm a aniongp 18.0 mmol/ L Not Available [facility] (Lab) [address] [place], [address], 02/25/2019 19:53:37 02/26/20 19 02/25/2019 BMP, serum or plasm a calcium, serum 10.1 mg/dL 8.2-10 .0 high Not Available [facility] (Lab) [address] [place], [address], 02/25/2019 19:53:37 02/26/20 19 02/25/2019 BMP, serum or plasm a osmol 287.0 mOsm/ L 275.0- 301.0 Not Available [facility] (Lab) [address], [place], [address], 02/25/2019 19:53:37 02/26/2002/25/2019 BMP, serum or plasm a eGFR, non- AM 73 mL/mi n/1.7 3/m >=60 Not Available [facility] (Lab) [address] [place], [address], 02/25/2019 19:53:37 02/19/2002/18/2019 XR, foot EXAMIN ATION: Bilate ral foot 3 views weight bearin g ACCESS ION: [id number] EXAM DATE/T DERECK: 019 12:29 PM REASON FOR EXAM: [id number] 107: Pain in left foot 564050 547087 107: Pain in right foot COMPAR TY: None TECHNI QUE: AP, obliqu e, and latera l weight bearin g views of the feet bilate rally were obtain ed. FINDIN GS: Examin ation left foot shows pes planus deform ity. Spurri ng from the calcan eus is noted. Spurri ng from the distal tibia, midfoo t, and about the first metata rsopha langea l and interp halang eal joints of the great toe. Vascul ar calcif icatio ns are noted. Findin gs are suspic ious for athero sclero tic change . This is partic ularly pronou nced in these areas, partic ularly in the area of the interp halang eal joint of the great toe. Examin ation right foot shows pes planus formin g with calcan eal spur. Simila r degene rative change s in the first metata rsopha langea l joint and interp halang eal joints of the right foot are also noted. These are less pronou nced than the left side. Enthes opathy about the latera l surfac e of the first metata rsal is also seen. ===== IMPRES FLOR:= ==== Pes planus deform ity seen bilate rally. Large calcan eal spurs seen bilate rally. Arthro rubin of the first metata rsopha langea l joint and great toe bilate rally noted, greate r on the left side. READ BY: MAJOR EMANUEL Date: 2018 13:52 WEIGHT BEARIN G BILATE RAL [email or web address] [facility]) [address] [place], [address], 02/25/2019 10:02:13 02/26/20 19 02/25/2019 XR, foot EXAMIN ATION: Right foot ACCESS ION: [id number] EXAM DATE: 2018 2:08 PM REASON FOR EXAM: [id number] 904464 107: Pain in left foot COMPAR TY: 019 TECHNI QUE: 3 views, includ ing standi ng FINDIN GS: Calcan eal inclin ation angle 20 degree s. Achill es enthes opathy . Bone spur sugges ts chroni c planta r fascii tis. Extens ciara first MTP osteoa rthrit is. No acute fractu re or disloc ation. IMPRES LFOR: 1. Stable exam compar ed with 019. READ BY: GORGE PUGH Date: 2018 15:28 [email or web address] [facility] [address] [place], [address], 02/27/2019 11:14:21 03/17/20 19 02/26/2019 deisy lezama am No observ ation record ed. [email or web address] Not Available 2018 17:24:41 Result Notes None recorded. Procedures Surgical History None recorded. Imaging Results Imaging Date Name Status LastModified by Organization Details LastModified Time 02/18/2019 XR, foot completed [email or web address] [facility] (Rad) [address] [place], [address], 02/25/2019 10:02:13 02/25/2019 XR, foot completed [email or web address] [facility] ([facility]) [address] [place], [address], 02/27/2019 11:14:21 02/26/2019 electrocardiogram completed [email or web address] Informa tion not available 03/23/2019 17:24:41 Procedure Notes None recorded. Medical Equipment None Reported. Allergies No known drug allergies Vitals Date Recorded Body height Body mass index (BMI) Body weight Heart rate Body temperature Systolic blood pressure Diastolic blood pressure Provider Name and Address Organization Details Last Updated DateTime 9 185.42 cm 38 kg/m2 420955. 6 g 89 /min 97.6 [degF] 150 mm[Hg] 91 mm[Hg] Gisele Gabriel [facility] 9 12:43:14 Date Recorded Body height Body mass index (BMI) Body weight Heart rate Body temperature Systolic blood pressure Diastolic blood pressure Provider Name and Address Organization Details Last Updated DateTime 9 185.42 cm 38 kg/m2 390218. 6 g 98 /min 97 [degF] 156 mm[Hg] 96 mm[Hg] Barb Carlisle LPN [facility] 9 14:10:51 Social History None recorded. Functional Status None recorded. Mental Status None recorded. Family History Nothing Reported. Medical History No medical history recorded. Past Encounters Encounter ID Performer Location Encounter Start Date Encounter Closed Date Diagnosis/Indication Diagnosis SNOMED-CT Code Diagnosis ICD10 Code Diagnosis Note [id number] OLIVER POLO DPM [facility] [address] [place] [address] 02/18/2019 11:57:09 02/19/2019 09:23:23 Diabetic peripheral neuropathy 969668554 E11.40 Foot pain 34931229 M79.6 71 M79.672 Metatarsalgia 30930226 M 77.41 M77.42 [id number] OLIVER POLO DPM [facility] [address] [place] [address] 02/25/2019 13:22:02 03/02/2019 10:42:06 Diabetic peripheral neuropathy 975640654 E11.40 Foot pain 04044627 M79.6 71 M79.672 Metatarsalgia 96662607 M 77.41 M77.42 Hammer toe 426338575 M20 .41 Acquired r ight hallux rigidus 8922923185 41052 M20.21 Health Concerns Section Related Observation LastModified by Organization Detai ls LastModified Time None Recorded Concern Status LastModified by Organization Details LastModified Time None Recorded Advance Directives Directive None Recorded Payers Encounter Date Sequence Insurance Name Policy Number Policy Waldron Covered Member ID Waldron Member ID Guarantor Name 02/18/2019 1 [facility] [id number] Vaibhav Nathan [id number] Vaibhav Nathan 02/18/2019 2 [place] [facility] Vaibhav Nathan [id number] Vaibhav Nathan 02/25/2019 1 [facility] [id number] Vaibhav Nathan [id number] Vaibhav Nathan 02/25/2019 2 [place] [facility] Vaibhav Nathan [id number] Vaibhav Nathan Notes Date Note Type Note Provider Name and Address Organization Details Recorded Time 02/18/2019 text/html Patient presents to clinic complaining of pain to the right, left foot. He states that he is a diabetic, his last hemoglobin a1c was around 9. He states that he has very little sensation to his feet. 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 He states that he also has a history of ulcers to the right foot. he has been seen by wound care before. He states that they wanted to do surgery, remove the 3rd metatarsal head and clean up the big toe joint. He states that he get numbness burning and tingling. He admits to cramping to his legs. he wantes to know if he can get diabetic shoes, that he has trouble finding shoes due to his big toe joints and often gets sores there. OLIVER POLO DPM [address] [place], [address], [facility] 02/18/2019 16:43:58 02/25/2019 text/html Patient presents to clinic complaining of pain to the right, left foot. He is here today to go over xrays and discuss what surgical options there are if any. He states that he is a diabetic, his last hemoglobin a1c was around 9. He states that he has very little sensation to his feet. 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 He states that he also has a history of ulcers to the right foot. he has been seen by wound care before. He states that they wanted to do surgery, remove the 4th metatarsal head and clean up the big toe joint. He states that he get numbness burning and tingling. He admits to cramping to his legs. he wantes to know if he can get diabetic shoes, that he has trouble finding shoes due to his big toe joints and often gets sores there. OLIVER POLO DPM [address], [place], [address], [facility] 02/25/2019 22:33:16
--- OUTSIDE RECORDS SUMMARY | 2024-09-04 09:46 | XMS_ITS | Encounter Summary ---
Author Organization [facility] Address Formerly [facility] [place] [address] Care Team Providers Care Power Checker Name Role Phone Angelina Gibson Primary Care Provider [phone] Eliu Garcia MD Unavailable [phone] Reason for Visit * Reason Onset Date Comments Medication Request 09/03/2024 Encounter Details Date Type Department Care Team (Late st Contact Info) Description 09/03/2024 Telephone [facility] Family [facility] Medicine [facility] [address] [place] [address] Angelina Gibson APNP [address] [place] [address] Medication Request Social History Tobacco Use Types Packs/Day Years [...] on file documented as of this encounter Progress Notes * Cherie Patel MA - 09/03/2024 9:56 AM CDT Pt agrees to get an at-home COVID/flu test, take, and call back with result. * Leeann Cleveland - 09/03/2024 9:31 AM CDT The patient has the following symptom(s): Cough, migraine, body aches. Symptom(s) Started: 09/01/24 OTC Medications tried: none Have you been seen with-in the past 30 days for these same symptoms? No If so, where? N.a Home Covid test: n.a Call back #: [phone] Allergies: No Known Allergies Pharmacy: [facility] [address] [place] [address] documented in this encounter Plan of Treatment Not on file documented as of this encounter Goals Goal Patient Goal Type Associated Problems Recent Progress Patient-Stated? Author Consistently take medications as Prescribed Lifestyle On track(2022 3:24 PM CDT) Nanci Allen RN Reduce HBA1C Levels Below 9% Lifestyle On track(2022 8:10 AM CDT) Nanci Allen RN Note: Patient will manage diabetes and [...] on 05/21/22: 10.8. Scheduled patient appointment with (Sole Rougher) on 09/27/22 at 10:00 am. 07/25/22: Patient not taking medications as directed or checking his BG as directed. See note for complete details. Establish Plan for Symptom Monitoring Lifestyle On track(2022 3:24 PM CDT) No Sara Connor RN Note: DM: Patient to follow diabetic [...] documented as of this encounter Care Teams Power Checker Relationship Specialty Start Date End Date Angelina Gibson APNP [address] [place] [id number] PCP - General NURSE PRACTITIONER 03/14/18 Eliu Garcia MD [facility], [address] [place] [address] Physician CARDIOVASCULAR DISEASE 03/06/23 documented as of this encounter
--- OUTSIDE RECORDS SUMMARY | 2024-09-04 09:46 | XMS_ITS | Clinical Summary ---
Author Organization [facility] Address [address], [address] [address] Phone Care Team Providers Care Rn Integrated Name Role Phone Angelina Gibson APRN, JAMILAH Primary Care Provider + Allergies No known active allergies Medications metFORMIN (GLUCOPHAGE) 1000 MG TabletIndication s:Thrombocytopen ia (HCC),Cough,Alco hol abuse 04/13/2018 Active LANTUS 100 UNIT/ML SolutionIndicati ons:Thrombocytop enia (HCC),Cough,Alco hol abuse INJECT 34 UNITS UNDER THE SKIN D 5 04/04/2018 Active atorvastatin (LIPITOR) 20 MG TabletIndication s:Thrombocytopen ia (HCC),Cough,Alco hol abuse nightly. 1 03/12/2018 Active glyBURIDE (DIABETA) 5 MG TabletIndication s:Thrombocytopen ia (HCC),Cough,Alco hol abuse 2 times daily. 1 03/26/2018 Active benzonatate (TESSALON) 100 MG CapsuleIndicatio ns:Thrombocytope linus (HCC),Cough,Alco hol abuse as needed. 0 03/27/2018 Active sertraline (ZOLOFT) 100 MG TabletIndication s:Thrombocytopen ia (HCC),Cough,Alco hol abuse daily. 04/13/2018 Active albuterol (PROAIR HFA) 108 (90 Base) MCG/ACT Aerosol SolutionIndicati ons:Thrombocytop enia (HCC),Cough,Alco hol abuse take by inhalation. 10/24/2015 Active Mometasone Furo-Formoterol Fum (DULERA) 200-5 MCG/ACT AerosolIndicatio ns:Thrombocytope linus (HCC),Cough,Alco hol abuse INL 2 PFS PO BID 06/19/2017 Active lisinopril (PRINIVIL, ZESTRIL) 10 MG TabletIndication s:Thrombocytopen ia (HCC),Cough,Alco hol abuse daily. 05/13/2017 Active losartan (COZAAR) 50 MG TabletIndication s:Thrombocytopen ia (HCC),Cough,Alco hol abuse Take by mouth daily. 05/17/2017 Active BREO ELLIPTA 200-25 MCG/INH AEROSOL POWDER, BREATH ACTIVATEDIndicat ions:Thrombocyto penia (HCC),Cough,Alco hol abuse INL 1 PUFF PO ITL D 2 03/27/2018 Active HYDROcodone-acet aminophen (NORCO) 5-325 MG TabletIndication s:Thrombocytopen ia (HCC),Cough,Alco hol abuse as needed. 0 03/17/2018 Active Active Problems Problem Noted Date Diagnosed Date Thrombocytopenia 04/22/2018 Cough 04/22/2018 Alcohol abuse 04/22/2018 Family History Medical History Relation Name Comments Diabetes Brother 1 Diabetes Brother 2 Diabetes Mother Heart Disease Mother Hypertension Mother Relation Name Status Comments Brother 1 Brother 2 Mother Social History Tobacco Use Types Packs/Day Years Used Date Smoking Tobacco: Never Smokeless Tobacco: Never Alcohol Use Standard Drinks/Week Comments No 0 (1 standard drink = 0.6 oz pur e alcohol) PHQ-2 Answer Date Recorded PHQ-2 Score 16 2019 Sex and Gender Information Value Date Recorded Sex Assigned at Not on file Legal Sex Male 10:29 PM CDT Gender Identity Not on file Sexual Orientation Not on file Last Filed Vital Signs Vital Sign Reading Time Taken Comments Blood Pressure 104/68 04/22/2018 1:12 PM [employer]EL[employer] Pulse 97 04/22/2018 1:12 PM [employer]ELOPER Temperature 36.6 C (97.8 F) 04/22/2018 1:12 PM [employer]ATION SOFTWARE DEVELOPER Respiratory Rate 20 04/22/2018 1:12 PM [employer]ATION SOFTWARE DEVELOPER Oxygen Saturation 96% 04/22/2018 1:12 PM [employer]ATION SOFTWARE DEVELOPER Inhaled Oxygen Concentration - - Weight 119.3 kg (263 lb) 04/22/2018 1:12 PM [employer]ATION SOFTWARE DEVELOPER Height 185.4 cm (6' 1 ) 04/22/2018 1:12 PM [employer]ATION SOFTWARE DEVELOPER Body Mass Index 34.7 04/22/2018 1:12 PM INTEGRATION SOFTWARE DEVELOPER Plan of Treatment Health Maintenance Due Date Last Done Comments Hepatitis C Virus (HCV) Screening 1965 TdaP Immunization 1965 Hepatitis B Immunization (1 of 3 - 19+ 3-dose series) 01/10/1984 Pneumococcal Immunization (5 0+ years) (1 of 2 - PCV) 01/10/1984 Colonoscopy 2010 Colorectal Cancer Screening 2010 Cologuard 2015 Immunochemical Fecal Occult Blood 2015 Zoster Immunization (1 of 2) 2015 Influenza Immunization (#1) 2024 SARS-COV-2 Immunization ( season) 2024 Respiratory Syncytial Virus (RSV) Immunization (Adult) (1 - 1-dose 75+ series) 01/10/2040 Meningococcal Immunization (ACWY) Aged Out No longer eligible based on patient's age to complete this topic Rotavirus Immunization Aged Out No lo nger eligible based on patient's age to complete this topic Care Teams Rn Integrated Relationship Specialty Start Date End Date Angelina Gibson, JOSEPH, COMMISSARY AGENT [address] [place] [id number] PCP - General Family Medicine 03/20/18
--- OUTSIDE RECORDS SUMMARY | 2024-09-04 09:46 | XMS_ITS | Clinical Summary ---
Author Organization [facility] Address On license of [facility] [place] [address] Care Team Providers Care Lube Man Name Role Phone Angelina Gibson Primary Care Provider Eliu Garcia MD Unavailable [phone] Allergies No known active allergies Medications DIABETIC SHOES Diabetic shoesUSE [id number] GibsonctivePharmacy Instructions: please dispense 1 pair of shoes 2017 Active glucose chewable 4 GM chewable tablet Chew 1 tablet (4 g total) by mouth. 2020 Active Insulin Syringe-Needle U-100 (B-D INS SYR ULTRAFINE 1CC/31G) 31G X 5/16 1 ML MiscIndications: Type 2 diabetes mellitus with other neurologic complication, with long-term current use of insulin ([facility]) Use daily to inject insulin as directed 100 each 1 2021 Active ondansetron (ZOFRAN-ODT) 4 MG disintegrating tabletIndication s:Nausea Take 1 tablet (4 mg total) by mouth every 8 (eight) hours as needed for Nausea. 20 tablet 2022 Active Blood Glucose Monitoring Suppl (D-CARE GLUCOMETER) w/Device KitIndications:T ype 2 diabetes mellitus without complication, with long-term current use of insulin ([facility] HHS/[facility]),Uncontr olled type 2 diabetes mellitus with hyperglycemia ([facility]) 1 Device by Does not apply route daily. 1 kit 2022 Active gabapentin (NEURONTIN) 100 MG capsuleIndicatio ns:Polyneuropath y associated with underlying disease ([facility]/HCC) Take 2 capsules three times daily 540 capsule 1 2022 Active Microlet Lancets MiscIndications: Type 2 diabetes mellitus with other neurologic complication, with long-term current use of insulin ([facility]),Uncontr olled type 2 diabetes mellitus with hyperglycemia ([facility]) USE TO TEST BLOOD GLUCOSE TID 100 each 3 2022 Active Glucose Blood (JOSE M CONTOUR NEXT TEST) test stripIndications :Type 2 diabetes mellitus with foot ulcer, with long-term current use of insulin ([facility]) TEST TID 300 strip 3 2022 Active metFORMIN (GLUCOPHAGE) 1000 MG tabletIndication s:Type 2 diabetes mellitus with other neurologic complication, with long-term current use of insulin ([facility]) TAKE 1 TABLET(1000 MG) BY MOUTH TWICE DAILY 180 tablet 2024 Active sertraline (ZOLOFT) 100 MG tabletIndication s:Depression with anxiety TAKE 2 TABLETS BY MOUTH EVERY DAY 180 tablet 1 2024 Active traZODone (DESYREL) 50 MG tabletIndication s:Primary insomnia TAKE 1 TABLET BY MOUTH EVERY NIGHT AT BEDTIME 90 tablet 1 2024 Active ofloxacin (FLOXIN) 0.3 % otic solution Place 4 drops in ear(s) 2 (two) times daily. 2023 Active tobramycin-dexam ethasone (TOBRADEX) ophthalmic solution 2024 Active empagliflozin (JARDIANCE) 25 MG tabletIndication s:Type 2 diabetes mellitus with foot ulcer, with long-term current use of insulin ([facility]),Type 2 diabetes mellitus with other neurologic complication, with long-term current use of insulin ([facility]) Take 1 tablet (25 mg total) by mouth daily. 90 tablet 1 2024 Active insulin lispro, 1 Unit Dial, (HUMALOG KWIKPEN) 100 UNIT/ML injection (PEN)Indications :Type 2 diabetes mellitus with other neurologic complication, with long-term current use of insulin ([facility]) IF BLOOD SUGAR IS 150-200 2 UNITS, IF 201-250 4 UNITS, IF 251-300 6 UNITS, IF 301-350 8 UNIT, IF>350 CALL OFFICE. CHECK THREE TIMES DAILY. Max 32 units daily 15 mL 1 2024 Active Continuous Glucose Sensor (FREESTYLE TERRY 2 SENSOR) MiscIndications: Uncontrolled type 2 diabetes mellitus with hyperglycemia ([facility]),Type 2 diabetes mellitus with diabetic polyneuropathy, with long-term current use of insulin ([facility]) Use as directed. 6 each 3 2024 Active albuterol sulfate HFA 108 (90 Base) MCG/ACT inhalerIndicatio ns:Shortness of breath Inhale 2 puffs into the lungs every 4 (four) hours as needed. FOR WHEEZING 8.5 g 2 2024 Active fluticasone furoate-vilanter ol (BREO ELLIPTA) 200-25 MCG/ACT inhalerIndicatio ns:Uncomplicated asthma, unspecified asthma severity, unspecified whether persistent ([facility]) Inhale 1 puff into the lungs daily. 60 each 2 2024 Active Lidocaine (ZTLIDO) 1.8 % PatchIndications :Other chronic pain,Low back pain potentially associated with radiculopathy Apply 1 patch topically daily. 30 patch 2024 Active losartan (COZAAR) 100 MG tabletIndication s:Proteinuria, unspecified type Take 1 tablet (100 mg total) by mouth daily. 90 tablet 3 2024 Active hydrOXYzine (ATARAX) 25 MG tabletIndication s:Depression with anxiety Take one half tab as needed for anxiety 30 tablet 2024 Active HYDROcodone-acet aminophen (NORCO) 7.5-325 MG tabletIndication s:Chronic Pain Take 1 tablet by mouth every 6 (six) hours as needed for Pain. Indications: Chronic Pain 100 tablet 2024 Active Insulin Pen Needle (TRUEPLUS 5-BEVEL PEN NEEDLES) 31G X 8 MM MiscIndications: Type 2 diabetes mellitus with other neurologic complication, with long-term current use of insulin ([facility]) USE DAILY DIRECTED 100 each 1 2024 Active tirzepatide (MOUNJARO) 7.5 MG/0.5ML injectionIndicat ions:Diabetes Mellitus Inject 7.5 mg into the skin once a week. Indications: Diabetes 2 mL 3 2024 Active insulin glargine (LANTUS SOLOSTAR) 100 UNIT/ML injection (PEN)Indications :Type 2 diabetes mellitus with foot ulcer, with long-term current use of insulin ([facility]) Inject 80 Units into the skin nightly at bedtime. 36 mL 3 2024 Active omeprazole (PRILOSEC) 40 MG capsuleIndicatio ns:Gastroesophag eal reflux disease, unspecified whether esophagitis present TAKE 1 CAPSULE(40 MG) BY MOUTH DAILY 90 capsule 2024 Active atorvastatin (LIPITOR) 40 MG tabletIndication s:Hyperlipidemia , mixed,Encounter for preprocedural cardiovascular examination TAKE 1 TABLET(40 MG) BY MOUTH EVERY NIGHT AT BEDTIME 90 tablet 2024 Active omeprazole (PRILOSEC) 40 MG capsuleIndicatio ns:Gastroesophag eal reflux disease, unspecified whether esophagitis present TAKE 1 CAPSULE(40 MG) BY MOUTH DAILY 90 capsule 09/02 Discontinued atorvastatin (LIPITOR) 40 MG tabletIndication s:Hyperlipidemia , mixed,Encounter for preprocedural cardiovascular examination TAKE 1 TABLET(40 MG) BY MOUTH EVERY NIGHT AT BEDTIME 90 tablet 09/02 Discontinued Insulin Pen Needle (TRUEPLUS 5-BEVEL PEN NEEDLES) 31G X 8 MM MiscIndications: Type 2 diabetes mellitus with other neurologic complication, with long-term current use of insulin ([facility]) USE DAILY DIRECTED 100 each 1 08/12 Discontinued( Reorder) HYDROcodone-acet aminophen (NORCO) 7.5-325 MG tabletIndication s:Chronic Pain Take 1 tablet by mouth every 6 (six) hours as needed for Pain. Indications: Chronic Pain 100 tablet 08/10 Discontinued( Reorder) insulin glargine (LANTUS SOLOSTAR) 100 UNIT/ML injection (PEN)Indications :Type 2 diabetes mellitus with foot ulcer, with long-term current use of insulin ([facility]) Inject 80 Units into the skin nightly at bedtime. 36 mL 3 08/18 Discontinued( Reorder) tirzepatide (MOUNJARO) 7.5 MG/0.5ML injectionIndicat ions:Diabetes Mellitus Inject 7.5 mg into the skin once a week. Indications: Diabetes 2 mL 3 08/18 Discontinued( Reorder) Active Problems Problem Noted Date Diagnosed Date Cirrhosis of liver without a scites, unspecified hepatic cirrhosis type ([facility]) 12/24/2023 Morbid (severe) obesity due to excess calories 0 12/24/2023 Trigger ring finger of left hand 11/07/2022 Trigger finger, left little finger 11/07/2022 Polyneuropathy associated with underlying diseas e ([facility]) 07/12/2020 Albuminuria 07/04/2020 Neuropathy 03/02/2019 Family history of coronary artery disease 2018 Chronic back pain 03/02/2019 Asthma ([facility]) 03/02/2019 Arthritis 03/02/2019 BMI 36.0-36.9,adult 01/22/2019 Left wrist pain 03/05/2018 Thrombocytopenia 08/16/2017 Daytime somnolence 05/17/2017 Insomnia 05/17/2017 Disorder of bone 02/07/2017 Overview (04/24/2018): Overview: R femur sclerotic lesion Disorder of adrenal gland ([facility]) 02/04/2017 Overview (04/24/2018): Overview: R 2.5cm adrenal mass Cardiac arrhythmia 01/30/2017 GERD (gastroesophageal reflux disease) 6 Balance problems 03/01/2016 ED (erectile dysfunction) 01/12/2016 Chronic cough 12/05/2015 Depression with anxiety 12/05/2015 Peripheral neuropathy 12/05/2015 Limb pain 04/22/2015 Reflex sympathetic dystrophy 11/05/2013 Essential hypertension Hyperlipidemia Type 2 diabetes mellitus wit h foot ulcer, with long-term current use of insulin ([facility]) Resolved Problems Problem Noted Date Diagnosed Date Resolved Date Care Management 06/14/2022 03/20/2023 Nephrolithiasis 07/04/2020 12/24/2023 Cellulitis of upper limb 04/01/2020 Screening for colon cancer 05/17/2017 0 01/22/2020 Encounter for general adult medical examination without abnormal findings 10/16/2013 Encounters Date Type Department Care Team Description 09/03/2024 Telephone [address] [place] [address] Angelina Gibson, APNP Medication Request 08/18/2024 Telephone [address] [place] [address] Angelina Gibson, APNP Refill Request 08/17/2024 Scan [facility] Scanned, [facility] 08/12/[address] [address] Angelina Gibson, APNP Medication Request 08/10/[address] [address] Aneglina Gibson, APNP Medication Request 08/10/2024 Telephone [address] [place] [address] Angelina Gibson, APNP Surgical Clearance 08/03/2024 Scan [facility] Scanned, [facility] Dilated Eye Exam (SCAN) 07/23/2024 8:40 AM CDT Office Visit [address] [place] [address] Angelina Gibson, APNP Diabetes 07/23/[address] [address] Angelina Gibson, APNP Medication Information 07/23/2024 Travel 07/21/[address] [address] Angelina Gibson, APNP Refill Request 07/15/[address] [address] Angelina Gibson, CLARISA Medication; Medication Request 07/10/[address] [address] Angelina Gibson, APNP Refill Request 07/09/[address] [address] Angelina Gibson, APNP Advice 07/06/2024 Scan [facility] Scanned, [facility] Dilated Eye Exam (SCAN) 06/23/[address] [address] Angelina Gibson, CLARISA Lab Results 06/22/2024 Scan [facility] Scanned, [facility] 06/18/[address] [address] Angelina Gibson, APNP Medication Request 06/16/2024 Scan [facility] Scanned, [facility] 06/15/2024 Scan [facility] Scanned, [facility] Dilated Eye Exam (SCAN) 06/12/2024 1:40 PM COST REPORT CLERK Allied Health/Nurse Visit [address] [address] Angelina Gibson APNP Allied Health Visit 06/12/2024 Travel 06/11/2024 8:00 AM COST REPORT CLERK Office Visit [address] [address] Angelina Gibson APNP Surgical Clearance 06/11/2024 Travel 06/08/2024 Scan [facility] Scanned, [facility] Dilated Eye Exam (SCAN) 06/08/[address] [address] Angelina Gibson APNP Orders 06/08/2024 Telephone [facility] Family & Internal Medicine [address] [address] Angelina Gibson APNP Medication Request from Last 3 Months Immunizations Immunization Administration Dates Next Due Fluzone (IIV3, Trivalent, 0. 5 ML Prefilled Syringe) 02/21/2024 Fluzone 6 Months+ Quad (0.5 mL Prefilled Syringe) 12/21/2021 Influenza Adult (Generic) 07/22/2019(Deferred: P atient Refused) Pneumococcal (Prevnar 20) 08/30/2021 Family History Medical History Relation Comments Diabetes Brother 2 Diabetes Brother 3 Alcohol Abuse Father Diabetes Maternal Grandfather Diabetes Maternal Grandmother CABG Mother x7 Coronary artery disease Mother Diabetes Mother Hyperlipidemia Mother Hypertension Mother Relation Status Comments Brother 1 Brother 2 Alive Brother 3 Alive Father Maternal Grandfather Maternal Grandmother Mother Other Sister 1 Sister 2 Alive Social History Tobacco Use Types Packs/Day Years Used Date Smoking Tobacco: Never Smokeless Tobacco: Never Tobacco Cessation:Counseling Given: No Alcohol Use Standard Drinks/Week Comments Not Currently [...] place to sleep or slept in a fpc (including now)? No 06/14/2022 Sex and Gender Information Value Date Recorded Sex Assigned at Male 07/23/2024 8:31 AM CDT Legal Sex Male 7:15 PM CDT Gender Identity Not on file Sexual Orientation Not on file Last Filed Vital Signs Vital Sign Reading Time Taken Comments Blood Pressure 120/72 07/23/2024 8:31 AM CDT Pulse 89 07/23/2024 8:31 AM CDT Temperature 36.3 C (97.3 F) 07/23/2024 8:31 AM CDT Respiratory Rate 16 07/23/2024 8:31 AM CDT Oxygen Saturation 99% 07/23/2024 8:31 AM CDT Inhaled Oxygen Concentration - - Weight 119.7 kg (264 lb) 07/23/2024 8:31 AM CDT Height 188 cm (6' 2 ) 07/23/2024 8:31 AM CDT Body Mass Index 33.9 07/23/2024 8:31 AM CDT Plan of Treatment Health Maintenance Due Date Last Done Comments Kidney Health Evaluation 1965 Annual Physical 01/10/1968 COVID-19 Vaccine ( season) 2024 Hemoglobin A1C 10/23/2024 07/23/2024, 05/15, 04/03/2024, Additional history exists DTaP, Tdap and Td Vaccines (1 - Tdap) 12/16/2024 Postponed from 01/10/1984 (No Insurance Coverage) Zoster Vaccines (1 of 2) 12/16/2024 Pos tponed from 2015 (Going to Outside Clinic) Lipid Panel 06/11/2025 06/11/2024, 01/2023, 01/26/2021, Additional history exists Diabetes: Retinopathy Eye Exam 08/03/2025 08/03/2024, 07/06/2024, 06/15/2024, Additional history exists Colorectal Cancer Screening Colonoscopy (10 Years) 05/13/2027 Pneumococcal Vaccine: 50+ Years Completed 08/30/2021 Hepatitis C Completed 02/12/2023, 10/29/2020 PHQ-2 (Physician Laverne) Completed 06/11/2024 Meningococcal B Vaccine Aged Out No l onger eligible based on patient's age to complete this topic Meningococcal Vaccine Aged Out No jonnathan henrique eligible based on patient's age to complete this topic RSV Immunizations Under 20 Months Aged Out No longer eligible based on patient's age to complete this topic Goals Goal Patient Goal Type Associated Problems [...] on 05/21/22: 10.8. Scheduled patient appointment with (Infantry Senior Sergeant) on 09/27/22 at 10:00 am. 07/25/22: Patient [...] Patient to take all medications as prescribed. Procedures Procedure Name Priority Date/Time Associated Diagnosis Comments DIABETIC RETINOPATHY EXAM (POSITIVE)(SCAN ORDER) Routine 08/03/2024 MG/PCCL UDS W CONF Routine 07/23/2024 8: 46 AM CDT High risk medication use Encounter for long-term (current) drug use COLLECT.CAPILLARY (FNGR,HEEL,EAR) Routine 07/23/2024 8:34 AM CDT Uncontrolled type 2 diabetes mellitus with hyperglycemia ([facility]) HEMOGLOBIN, GLYCOSYLATED Routine 07/23/2024 Uncontrolled type 2 diabetes mellitus with hyperglycemia ([facility]) DIABETIC RETINOPATHY EXAM (POSITIVE)(SCAN ORDER) Routine 07/06/2024 DIABETIC RETINOPATHY EXAM (POSITIVE)(SCAN ORDER) Routine 06/15/2024 ELECTROCARDIOGRAM (NON MIDMARK ACQUIRED) Routine 06/12/2024 1:14 PM COST REPORT CLERK Pre-op exam CBC W/DIFF AUTOMATED Routine 06/11/2024 9:27 AM COST REPORT CLERK Thrombocytopenia COMPREHENSIVE METABOLIC PANEL Routine 06/11/2024 9:27 AM COST REPORT CLERK Uncontrolled type 2 diabetes mellitus with hyperglycemia ([facility] HHS/HCC) Type 2 diabetes mellitus with foot ulcer, with long-term current use of insulin ([facility]/HCC) Type 2 diabetes mellitus with other neurologic complication, with long-term current use of insulin ([facility]/HCC) PROSTATE SPECIFIC ANTIGEN,SCREENING Routine 06/11/2024 9:27 AM COST REPORT CLERK Prostate cancer screening LIPID PANEL Routine 06/11/2024 9:27 AM COST REPORT CLERK Mixed hyperlipidemia COLLECT.CAPILLARY (FNGR,HEEL,EAR) Routine 06/11/2024 8:09 AM COST REPORT CLERK Uncontrolled type 2 diabetes mellitus with hyperglycemia ([facility] HHS/HCC) HEMOGLOBIN, GLYCOSYLATED Routine 06/11/2024 Uncontrolled type 2 diabetes mellitus with hyperglycemia ([facility]/HCC) DIABETIC RETINOPATHY EXAM (POSITIVE)(SCAN ORDER) Routine 06/08/2024 HEP C SCANNED ORDERS Routine 02/12/2023 from Last 3 Months or Most Recently Relevant to Health Maintenance Results * DIABETIC RETINOPATHY EXAM (POSITIVE) (08/03/2024) us [facility] Scanned SCANNING Final Resu lt HS ONBASE * (ABNORMAL) MG/PCCL UDS W CONF (07/23/2024 8:46 AM CDT) RESULT SUMMARY [facility] Comment: Prescribed Prescribed Not Prescribed Consistent Inconsistent Inconsistent Hydrocodone PRESCRIBED DRUG 1 (U) Hydrocodone [facility] FENTANYL SCREEN (U) NEGATIVE <0.5 ng/mL [facility] MORPHINE (U) NEGATIVE <10 ng/mL [facility] DESMETHYLTRAMADOL (U) NEGATIVE <100 ng/mL [facility] TRAMADOL (U) NEGATIVE <100 ng/mL [facility] TRAMADOL COMMENTS [facility] Comment:See LDT Notes AMPHETAMINES PM NEGATIVE <500 ng/mL [facility] BARBITURATES PM (U) NEGATIVE <300 ng/mL [facility] BENZODIAZEPINES PM (U) NEGATIVE <100 ng/mL [facility] COCAINE METABOLITE PM (U) NEGATIVE <150 ng/mL [facility] MARIJUANA METABOLITE PM (U) NEGATIVE <20 ng/mL [facility] METHADONE PM (U) NEGATIVE <100 ng/mL [facility] OPIATES PM (U) POSITIVE(A) <100 ng/mL [facility] CODEINE PM (U) NEGATIVE <50 ng/mL [facility] HYDROCODONE PM (U) 92(H) <50 ng/mL [facility] PM MEDMATCH (U) CONSISTENT [facility] HYDROMORPHONE PM (U) NEGATIVE <50 ng/mL [facility] MORPHINE PM (U) NEGATIVE <50 ng/mL [facility] NORHYDROCODONE PM (U) 171(H) <50 ng/mL [facility] NORHYDROCODONE PM MM (U) CONSISTENT [facility] OPIATES COMMENTS [facility] Comment:See Opiates Notes, L DT Notes OXYCODONE PM (U) NEGATIVE <100 ng/mL [facility] CREATININE RANDOM (U) 65.4 > or = 20.0 mg/dL [facility] pH PM (U) 5.6 4.5 - 9.0 [facility] OXIDANT NEGATIVE <200 mcg/mL [facility] NOTE [facility] Comment: This drug testing is for medical treatment only. Analysis was performed as non-forensic testing and these results should be used only by healthcare providers to render diagnosis or treatment, or to monitor progress of medical conditions. Opiates Notes: Hydrocodone, Norhydrocodone detected is consistent with the use of the drug Hydrocodone. The metabolite Hydromorphone is not present at or above the cutoff. LDT Notes: Confirmation tests were developed and their analytical performance characteristics have been determined by [facility]. It has not been cleared or approved by the FDA. This assay has been validated pursuant to the CLIA regulations and is used for clinical purposes. medMATCH(R) enables providers to identify if drug use is consistent or inconsistent with a corresponding prescribed medication(s) list. Healthcare Providers needing Interpretation assistance, please contact us at [phone] ( ) M-F, 8am to 10pm EST URINE SPECIMEN / Unknown 07/23/2024 8:46 AM CDT 07/24/2024 12:30 AM CDT Narrative Resulting Agency Comment Performing Organization Information: Site ID: [id number] Name: [facility] Address: [address] [place] [address] Director: Ryan Feliz Site ID: [id number] Name: [facility] Address: [id number] [place] [address] Director: Pamela Garay MD Angelina MCKENNA URINE ORDERABLES Final Resu lt Performing Organization Address [facility] de Phone Number [facility] [address] [place] [address], [facility] [place] [address] [place] [address] * HEMOGLOBIN, GLYCOSYLATED (07/23/2024) Only the most recent of2 resultswithin the time period is included. HGB A1C 9.2 % [facility] 07/23/2024 Angelina MCKENNA [facility] Final Resul t Performing Organization Address [facility] Co de Phone Number [facility] [address] [place] [address], * DIABETIC RETINOPATHY EXAM (POSITIVE) (07/06/2024) us [facility] Scanned SCANNING Final Resu lt [facility] ONBASE * DIABETIC RETINOPATHY EXAM (POSITIVE) (06/15/2024) us [facility] Scanned SCANNING Final Resu lt [facility] ON[facility] * EKG WELCHALLEN ACQUIRED (06/12/2024 1:14 PM COST REPORT CLERK) 06/12/2024 1:14 PM COST REPORT CLERK Narrative [facility] - 06/12/2024 1:49 PM COST REPORT CLERK [id number] [place] [address] Test Date: 2024-06-12 Pat Name: CHENTE NATHAN Department: 171 Room: Gender: Male Vacuum Pan Operator: : 1965 Requested By: WILLY GALARZA Order Number: [id number] Reading MD: Willy Galarza Measurements Intervals [place] Rate: 95 P: 50 [place]: 198 QRS: -7 QRSD: 149 T: 27 QT: 410 QTc: 516 Interpretive Statements SINUS RHYTHM RIGHT BUNDLE BRANCH BLOCK COMPARED TO PREVIOUS TRACING, new onset RBBB REPORT CLERK Procedure Note Willy Galarza DO - 06/12/2024 [facility] [address] [place] [address] Test Date: 2024-06-12 Pat Name: CHENTE NATHAN Department: 171 Room: Gender: Male Vacuum Pan Operator: : 1965 Requested By: WILLY GALARZA Order Number: [id number] Reading MD: Willy Galarza Measurements Intervals [place] Rate: 95 P: 50 [place]: 198 QRS: -7 QRSD: 149 T: 27 QT: 410 QTc: 516 Interpretive Statements SINUS RHYTHM RIGHT BUNDLE [place]ANCH BLOCK COMPARED TO PREVIOUS TRACING, new onset RBBB REPORT CLERK us Willy Galarza DO PROCEDURES-ORDERABLE NO CHARGE Final Result [facility] * PROSTATE SPECIFIC ANTIGEN,SCREENING (06/11/2024 9:27 AM COST REPORT CLERK) PSA 0.42 <4.00 NG/ML 06/11/2024 3:05 PM COST REPORT CLERK [facility] Comment: ASSAY PERFORMED BY [employer] IMMUNOASSAY METHODOLOGY USING SIEMENS DIMENSION REAGENT. PATIENT RESULTS DETERMINED BY ASSAYS FROM DIFFERENT MANUFACTURERS AND/OR BY DIFFERENT METHODS MAY NOT BE COMPARABLE. 06/11/2024 9:27 AM COST REPORT CLERK Angelina MCKENNA [facility]OR[facility] Final Resul t Performing Organization Address City/[facility]/ZIP Co de Phone Number [facility] [address] [place] [address], * (ABNORMAL) COMPREHENSIVE METABOLIC PANEL (06/11/2024 9:27 AM COST REPORT CLERK) SODIUM S/P/B 138 136 - 145 MMOL/L 06/11/2024 3:21 PM COST REPORT CLERK [facility] POTASSIUM S/P/B 4.7 3.5 - 5.1 MMOL/L 06/11/2024 3:21 PM [facility] CHLORIDE S/P/B 103 98 - 107 MMOL/L 06/11/2024 3:21 PM [facility] CO2 23.3 21 - 32 MMOL/L 06/11/2024 3:21 PM COST REPORT CLERK [facility] GLUCOSE 284(H) 70 - 99 MG/DL 06/11/2024 3:21 PM [facility] BUN 37(H) 7 - 18 MG/DL 06/11/2024 3:21 PM [facility] CREATININE S/P/B 1.32(H) 0.70 - 1.30 MG/DL 06/11/2024 3:21 PM COST REPORT CLERK [facility] CALCIUM S/P/B 9.2 8.4 - 10.5 MG/DL 06/11/2024 3:21 PM [facility] BILIRUBIN TOTAL S/P/B 0.8 0.2 - 1.0 MG/DL 06/11/2024 3:21 PM [facility] ALKALINE PHOSPHATASE S/P/B 93 45 - 115 U/L 06/11/2024 3:21 PM [facility] AST 32 15 - 37 U/L 06/11/2024 3:21 PM [facility] ALT 50 16 - 63 U/L 06/11/2024 3:21 PM [facility] TOTAL PROTEIN S/P/B 7.5 6.4 - 8.2 G/DL 06/11/2024 3:21 PM [facility] ALBUMIN S/P/B 3.9 3.4 - 5.0 G/DL 06/11/2024 3:21 PM [facility] ANION GAP 11.7 5 - 15 MMOL/L 06/11/2024 3:21 PM [facility] Comment:REFERENCE RANGE NOT ESTABLISHED OSMOLALITY (CALC) 305 MOSM/KG 025 3:21 PM [facility] Comment:REFERENCE RANGE NOT ESTABLISHED GFR ESTIMATE 62(L) >90 ML/MIN/1. 73 M2 06/11/2024 3:21 PM [facility] GFR NOTES GFR REFERENCE S: 06/11/2024 3:21 PM [facility] Comment: THE ESTIMATED GFR IS CALCULATED USING THE 2020 CKD-EPI EQUATION. THE FOLLOWING CATEGORIES FOR GRADING RENAL FUNCTION ARE RECOMMENDED BY THE INTERNATIONAL SOCIETY OF NEPHROLOGY (KDIGO 2012 CLINICAL PRACTICE GUIDELINE). G1,NORMAL OR HIGH: >89 ml/min/1.73 m2 G2,MILDLY DECREASED: 60-89 ml/min/1.73 m2 G3A,MILDLY TO MODERATELY DECREASED: 45-59 ml/min/1.73 m2 G3B,MODERATELY TO SEVERELY DECREASED: 30-44 ml/min/1.73 m2 G4,SEVERELY DECREASED: 15-29 ml/min/1.73 m2 G5,KIDNEY FAILURE: <15 ml/min/1.73 m2 06/11/2024 9:27 AM COST REPORT CLERK Angelina [facility] Final Resul t [facility] [address] [place] [address], * (ABNORMAL) LIPID PANEL (06/11/2024 9:27 AM COST REPORT CLERK) CHOLESTEROL 175 <200 MG/DL 06/11/2024 3:21 PM COST REPORT CLERK [facility] TRIGLYCERIDES 260(H) <150 MG/DL 06/11/2024 3:21 PM [facility] HDL 47 >40 MG/DL 06/11/2024 3:21 PM COST REPORT CLERK [facility] LDL-C 76 <100 MG/DL 06/11/2024 3:21 PM COST REPORT CLERK [facility] VLDL CALCULATION 52(H) 5 - 28 MG/DL 06/11/2024 3:21 PM [facility] CHOL/HDL RATIO 3.7 0.0 - 4.0 06/11/2024 3:21 PM [facility] LDL/HDL 1.6 0.41 - 2.13 06/11/2024 3:21 PM COST REPORT CLERK [facility] NON HDL CHOLESTEROL 128 <140 MG/DL 06/11/2024 3:21 PM COST REPORT CLERK [facility] 06/11/2024 9:27 AM COST REPORT CLERK Angelina [facility]CKENNA [facility]ORAT[facility] Final Resul t Performing Organization Address City/[facility]/ZIP Co de Phone Number [facility] [address] [place] [address], * (ABNORMAL) CBC W/DIFF AUTOMATED (06/11/2024 9:27 AM COST REPORT CLERK) [facility] WBC 4.52 4.00 - 10.80 x10'3/uL 06/11/2024 3:48 PM [facility] RBC 4.60 4.50 - 6.10 x10'6/uL 06/11/2024 3:48 PM [facility] HGB 13.8 13.0 - 18.0 G/DL 06/11/2024 3:48 PM [facility] HCT 43.2 37.0 - 52.0 % 06/11/2024 3:48 PM [facility] MCV 93.9 78.0 - 100.0 FL 06/11/2024 3:48 PM [facility] MCH 30.0 27.0 - 31.0 PG 06/11/2024 3:48 PM [facility] MCHC 31.9(L) 33.0 - 36.0 G/DL 06/11/2024 3:48 PM [facility] RDW 13.1 11.5 - 14.5 % 06/11/2024 3:48 PM [facility] PLT 107(L) 150 - 350 x10'3/uL 06/11/2024 3:48 PM [facility] MPV 12.3(H) 7.4 - 10.4 FL 06/11/2024 3:48 PM [facility] DIFFERENTIAL TYPE AUTOMATED DIFFERENTIAL 06/11/2024 3:48 PM [facility] NEUTROPHILS % 58.0 % 06/11/2024 3:48 PM [facility] LYMPHOCYTES % 29.4 % 06/11/2024 3:48 PM [facility] MONOCYTES % 7.1 % 06/11/2024 3:48 PM [facility] EOSINOPHILS % 4.2 % 06/11/2024 3:48 PM COST REPORT CLERK [facility] BASOPHILS % 0.9 % 06/11/2024 3:48 PM COST REPORT CLERK [facility] IMMATURE GRANS % 0.4 % 06/11/2024 3:48 PM COST REPORT CLERK [facility] ABS. NEUTROPHILS 2.62 1.60 - 8.30 x10'3/uL 06/11/2024 3:48 PM COST REPORT CLERK [facility] ABS. LYMPHOCYTES 1.33 0.80 - 4.70 x10'3/uL 06/11/2024 3:48 PM COST REPORT CLERK [facility] ABS. MONOCYTES 0.32 0.00 - 1.50 x10'3/uL 06/11/2024 3:48 PM COST REPORT CLERK [facility] ABS. EOSINOPHILS 0.19 0.00 - 0.40 x10'3/uL 06/11/2024 3:48 PM COST REPORT CLERK [facility] ABS. BASOPHILS 0.04 0.00 - 0.20 x10'3/uL 06/11/2024 3:48 PM COST REPORT CLERK [facility] ABS. IMMATURE GRANULOCYTES 0.02 0.00 - 0.03 x10'3/uL 06/11/2024 3:48 PM COST REPORT CLERK [facility] 06/11/2024 9:27 AM COST REPORT CLERK Angelina HERRNP LABORATORY Final Resul t -[facility] [address] [place] [address], * DIABETIC RETINOPATHY EXAM (POSITIVE) (06/08/2024) [facility] Scanned SCANNING Final Resu lt [facility] ON[facility] * HEP C SCANNED ORDERS (02/12/2023) [facility] Scanned SCANNING Final Resu lt [facility] ON[facility] from Last 3 Months or Most Recently Relevant to Health Maintenance Insurance [place] [address] [address] [address] Care Teams Lube Man Relationship Specialty Start Date End Date Angelina Gibson APNP [address] [place] [phone] PCP - General NURSE PRACTITIONER 03/14/18 Eliu Garcia MD [facility], [address] [place] [address] Physician CARDIOVASCULAR DISEASE 03/06/23
--- OUTSIDE RECORDS SUMMARY | 2024-09-04 09:46 | XMS_ITS | CONTINUITY OF CARE DOCUMENT ---
Author Name venessa clifford Address Unknown Organization [facility] Address [address] [place] [address] Phone [phone] Care Team Providers Care Milk Route Supervisor Name Role Phone Jarrett TESFAYE, Guadalupe Unavailable JOCELYN JARVIS, OLEG ARAGON Unavailable JOCELYN JARVIS, OLEG ARAGON Unavailable PROBLEMS Condition Status Date Provider Notes Family History Coronary Hear t Disease female < 65: active Guadalupe Farias MD Cardiovascular screening active Guadalupe wells MD Asthma active Guadalupe Farias MD Syncope active Guadalupe Farias MD Dizziness active Guadalupe Farias MD Hypertension active Guadalupe Farias MD Hyperlipidemia active Guadalupe Farias MD Diabetes, Type 2 active Guadalupe Farias MD ARTHRITIS active Guadalupe Farias MD Neuropathy active Guadalupe Farias MD Shortness of breath active Guadalupe Farias MD Chronic back pain active Guadalupe Farias MD ENCOUNTERS Date Type Provider Location Encounter Diag nosis - In-person encounter Office Visit Guadalupe Farias MD [place] [facility] Family History Coronary Heart Disease female < 65:Cardiovascular screeningAsthmaSyncop eDizzinessHypertensio nHyperlipidemiaDiabet es, Type 2ARTHRITISNeuropathyS hortness of breathChronic back pain VITAL SIGNS Date Observation Value Provider Body Mass Index (Ratio) 37.60 kg/m2 Fili Farias MD blood pressure, resting Yes Fredi a Pipo blood pressure, diastolic 78 mm[Hg] Rick ewelina Pipo blood pressure, systolic 130 mm[Hg] Jayleenmichelle schmid Pipo oxygen saturation, oximetry 97 % Dorothy Foss pulse rate 94 /min Dorothy Noriega weight E&M 285 [lb_av] Dorothy Noriega height E&M 73 [in_i] Dorothy Noriega HISTORY OF MEDICATION USE Medication Status Instructions Dates Provider Indications Com ments TRULICITY 1.5 MG/0.5ML SUBCUTANEOUS SOLUTION PEN-INJECTOR active as directed Dorothy Foss GLYBURIDE 5 MG ORAL TABLET active 2 tab twice daily Dorothy Foss ATORVASTATIN CALCIUM 20 MG ORAL TABLET active one tab daily Dorothy Foss BASAGLAR KWIKPEN SOLUTION PEN-INJECTOR active as directed Dorothy Foss BREO ELLIPTA 100-25 MCG/INH INHALATION AEROSOL POWDER BREATH ACTIVATED active one puff daily Dorothy Foss SERTRALINE HCL 100 MG ORAL TABLET active 2 tab daily Dorothy Foss PROMETHAZINE HCL 25 MG ORAL TABLET active one tab every 4hrs as needed Dorothy Foss NIFEDIPINE ER 30 MG ORAL TABLET EXTENDED RELEASE 24 HOUR active one tab. daily Dorothy Foss METFORMIN HCL 1000 MG ORAL TABLET active one tab twice daily Dorothy Foss LOSARTAN POTASSIUM 50 MG ORAL TABLET active Take one tablet daily Dorothy Foss SOCIAL HISTORY Date Observation Value Provider number of grandchildren Guadalupe Farias MD T sussy Farias MD social history E&M S moking History: P oren has never smoked. Guadalupe Farias MD social history reviewed E&M revi ewed - no changes required Dorothy Foss smoking status Never smoker Dorothy Espino FAMILY HISTORY Family Member Condition Mother [place] female <65 Mother Family History of Di abetes: Mother Family History Coron caleb Heart Disease female < 65: INSURANCE PROVIDERS Payer name Policy type / Coverage type [place] red libertarian ID J CARLOS KRAMER Other [id number] HE[employer] AND FAMILY SERVICES Medicaid 0 [id number] ADVANCE DIRECTIVES Name Date DISCUSSED - NO DECISION MADE TREATMENT PLAN Date Name Performer Cardiology Guadalupe Farias MD Cardiology Guadalupe Farias MD Cardiology Guadalupe Farias MD Cardiology Guadalupe Farias MD Cardiology Guadalupe Farias MD Cardiology: B P today: 130/78 Guadalupe Farias MD Date Name Complete Echo DLCO - 43782 FRC - 83989 FVC - 80427 Stress Exercise Card iolite HISTORY OF PROCEDURES Procedure Date Procedure Name Provider Procedure Notes S tatus FVC / MVV with bronchodilator - 32048 Guadalupe Farias MD completed BLOOD COUNT HEMOGLOBIN Guadalupe Farias MD completed FRC - 42561 Guadalupe Farias MD complete d SpO2 w/o 6min walk/titration Guadalupe Farias MD completed DLCO - 59510 Guadalupe Farias MD complet ed EKG Guadalupe Farias MD completed
== END 2024-09-04 09:36 | disposition home or self-care (01) ==
PROVIDERS: PCP Registered Nurse; Visit Provider Internal Medicine Gastroenterology
DX: K74.60 Unspecified cirrhosis of liver (principal); K76.0 Fatty (change of) liver, not elsewhere classified
CPT/HCPCS: 76705

== ENCOUNTER 2024-10-20 10:43 | Emergency (ER) | payer MEDICARE, MEDICAID, SELFPAY ==
--- NOTE | ~2024-10-20 | CT_ITS ---
EXAMINATION: CT brain wo con DATE: 10/20/2024 11:25 INDICATION: Head injury TECHNIQUE: Computed tomography (CT) of the head was performed without intravenous contrast. Sagittal and coronal reconstructions were performed. The mA was adjusted according to patient size. Iterative reconstruction technique was employed. The dose-length product was 605.33 mGy-cm. COMPARISON: head CT dated 04/02/2024 FINDINGS: No fracture. No acute intracranial hemorrhage, acute infarction or abnormal extra axial fluid collect ion. Ventricles are normal and symmetric. No mass/mass effect. Changes of bilateral intraocular lens replacement. There is new high attenuation likely silicone oil within the left globe. Mild mucoperios teal thickening in the bilateral maxillary and ethmoid sinuses. Bilateral mastoids are hypopneumatize d. IMPRESSION: 1. No fracture or acute intracranial process. Reviewed, dictated and finalized at location A.
[2024-10-20 10:44] VITALS: BP 140/72; PULSE 79; RESP 16; TEMP 36.5; O2SAT 98
[2024-10-20 11:04] VITALS: BP 158/85; PULSE 80; RESP 16; O2SAT 97
--- NOTE | 2024-10-20 11:13 | ED.HEATRA ---
HPI - Head Injury General Chief complaint: Head Injury Stated complaint: head injury Time Seen by Provider: 10/20/24 11:02 History of Present Illness HPI Narrative: Pt was loading walk behind coordinator of rehabilitation services on sagrario and it slipped off and sagrario flipped up and struck pt on left side of head. No LOC but did see stars. No weakness or numbness. Pt has dull RAINES and some mild photophobia. Pt had recent surgery retinal surgery but no visual symptoms other that photophobia. Related Data Home Medications ?Medication ?Instructions ?Recorded ?Confirmed ?Last Taken ?Type fluticasone furoate 200 1 inh inhalation DAILY 08/15/20 10/14/24 10/05/20 History mcg-vilanterol 25 mcg/dose inhalation powder (Breo Ellipta) insulin glargine 100 unit/mL (3 60 unit subcut HS 08/15/20 10/14/24 10/05/20 History mL) subcutaneous pen (Basaglar KwikPen U-100 Insulin) losartan 50 mg tablet 50 mg PO DAILY 08/15/20 10/14/24 10/25/20 07:00 History metformin 1,000 mg tablet 1,000 mg PO BID 08/15/20 10/14/24 10/05/20 History pen needle, diabetic 31 gauge x 08/15/20 10/14/24 Unknown History 5/16 (BD Ultra-Fine Short Pen Needle) trazodone 50 mg tablet 50 mg PO HS 08/15/20 10/14/24 10/05/20 History atorvastatin 20 mg tablet 20 mg PO DAILY 05/29/22 10/14/24 Unknown History empagliflozin 25 mg tablet 25 mg PO DAILY 05/29/22 10/14/24 Unknown History (Jardiance) gabapentin 100 mg capsule 200 mg PO TID 05/29/22 10/14/24 Unknown History hydrocodone 7.5 mg-acetaminophen 1 tablet PO Q6H PRN Pain 05/29/22 10/14/24 Unknown History 325 mg tablet Allergies Allergy/AdvReac Type Severity Reaction Status Date / Time No Known Allergies Allergy Verified 10/20/24 11:05 Review of Systems Review of Systems: All systems reviewed & are unremarkable except as noted in HPI and below PMFSH Past Medical History Medical History Thrombocytopenia Metabolic dysfunction-associated steatohepatitis (MASH) Adenomatous colon polyp History of alcohol abuse CAD (coronary artery disease) Obesity Screening for colon cancer Pancytopenia Diabetes Myocardial infarction Patient reports having an MS in his 30s attributed to stress. Treated medically. No heart catheterization. Obstructive sleep apnea Cirrhosis Noted on CT on 05/29/2022. Gastroesophageal reflux disease Diabetic peripheral neuropathy History of kidney stones Gastroesophageal reflux Type 2 diabetes mellitus History of lung cancer Patient reports history of bilateral pulmonary nodule suspicious for cancer. They were never biopsied but presumed to be malignant. He completed a marijuana treatment and the nodules essentially resolved. Hypertension Surgical History Surgical History History of right mastoidectomy (10/25/20) History of tympanoplasty History of orchiectomy Secondary to left-sided testicular torsion. History of appendectomy Family History Family History Mother Congestive heart failure Diabetes mellitus Sibling Diabetes mellitus Other No significant family history Social History Social History Social History: Surrogate decision maker: Janny Mae, friend. Code status: Full code. Smoking status: Never smoker Alcohol intake: former Drinks per week: 1 Alcohol use details: 1 L WHISKEY PER DAY,NONE 23 YRS Substance use: never Substance use type: does not use Other substance usage details: Patient uses medical marijuana. Lack of Transportation: No Lack of Food: Never True Current Housing: I Do Not Have Housing Concerned About Future Housing: No Difficulty Paying Gas/Electric Bills: No Difficulty Paying for Meds: No Currently Unemployed: No Education: High School Diploma/GED Difficulty w/ Childcare or Family Care: No Living arrangements: with friend(s) Additional occupation/education comments: Disabled. Gender identity (if verbalized by the patient): Male Spiritual care concerns: No Exam Const: General: healthy appearing and no acute distress Nutritional Appearance: well nourished Orientation/consciousness: patient oriented x3 Limitations: no limitations HENMT: Head: normal to inspection and contusion left temporal (minimal tenderness) Eyes: EOM: EOMs intact bilaterally Resp: Effort & Inspection: normal respiratory effort Auscultation: clear to auscultation bilaterally Cardio: Rate: regular rate Rhythm: regular rhythm GI: GI Palp: Yes Soft to palpation and Yes Tenderness to palpation present (GI) Auscultation: normal bowel sounds Skin: General skin exam: normal color Rashes: no rashes Wounds: no wounds Neuro: General: patient oriented x3, moves all extremities and no focal motor deficits Cranial nerves: Yes CN's II-XII intact bilaterally Speech: normal speech Extrem: General: normal to inspection Psych: Mental Status: mental status grossly normal Affect: normal affect Attitude: cooperative Course Vital Signs Vital signs: Vital Signs Temperature 97.7 F 10/20/24 10:44 Pulse Rate 79 10/20/24 10:44 Respiratory Rate 16 10/20/24 10:44 Blood Pressure 140/72 10/20/24 10:44 Pulse Oximetry 98 10/20/24 10:44 Oxygen Delivery Room Air 10/20/24 10:44 Temperature 97.7 F 10/20/24 10:44 Pulse Rate 76 10/20/24 11:32 Respiratory Rate 16 10/20/24 11:32 Blood Pressure 147/86 H 10/20/24 11:32 Pulse Oximetry 99 10/20/24 11:32 Oxygen Delivery Room Air 10/20/24 10:44 MDM - Head Injury MDM Narrative Medical decision making narrative: Pt presents with RAINES after being struck in left head by sagrario that flipped. No LOC. No blood thinners. will get CT head. CT neg. home on pain meds for RAINES. Discharge Plan Discharge Clinical Impression: Head injury Patient Disposition: Home Condition: Stable Instructions: Antibiotic Form, Head Injury (ED) Patient Language: Slovenian Prescriptions: New hydrocodone-acetaminophen 5-325 mg tablet 1 tablet PO Q6H PRN (Reason: pain) Qty: 10 0RF No Action lidocaine 1.8 % adhesive patch,medicated 1 patch topical DAILY Qty: 30 0RF Rx Instructions: leave on most painful area for up to 12 hrs. do not use more than 1 patch in 24 hours. ciprofloxacin-dexamethasone 0.3-0.1 % drops,suspension 4 drp LEFT EAR Q12H 7 Days Qty: 7.5 0RF losartan 50 mg tablet 50 mg PO DAILY trazodone 50 mg tablet 50 mg PO HS metformin 1,000 mg tablet 1,000 mg PO BID (DME) pen needle, diabetic [BD Ultra-Fine Short Pen Needle] 31 gauge x 5/16 needle MISCELLANEOUS fluticasone furoate-vilanterol [Breo Ellipta] 200-25 mcg/dose blister with device 1 inh INHALATION DAILY insulin glargine [Basaglar KwikPen U-100 Insulin] 100 unit/mL (3 mL) insulin pen 60 unit SUBCUT HS Rx Instructions: 60 units daily hs atorvastatin 20 mg tablet 20 mg PO DAILY hydrocodone-acetaminophen 7.5-325 mg tablet 1 tablet PO Q6H PRN (Reason: Pain) gabapentin 100 mg capsule 200 mg PO TID Jardiance 25 mg tablet 25 mg PO DAILY Follow-up/Referrals: Paige,SIMONA Alfaro [Primary Care Provider] -
[2024-10-20 11:32] VITALS: BP 147/86; PULSE 76; RESP 16; O2SAT 99
[2024-10-20] MEDS: ACETAMINOPHEN 500 MG TABLET 1000 MG PO (11:32)
--- OUTSIDE RECORDS SUMMARY | 2024-10-20 11:56 | XMS_ITS | Clinical Summary ---
Author Organization [facility] Address [address], [address] [address] Phone Care Team Providers Care Diabetes Specialist Name Role Phone Angelina Gibson APRN, JAMILAH [...] Comments Blood Pressure 104/68 04/22/2018 1:12 PM CARTON MAKING MACHINIST Pulse 97 04/22/2018 1:12 PM CARTON MAKING MACHINIST Temperature 36.6 C (97.8 F) 04/22/2018 1:12 PM CARTON MAKING MACHINIST Respiratory Rate 20 04/22/2018 1:12 PM CARTON MAKING MACHINIST Oxygen Saturation 96% 04/22/2018 1:12 PM CARTON MAKING MACHINIST Inhaled Oxygen Concentration - - Weight 119.3 kg (263 lb) 04/22/2018 1:12 PM CARTON MAKING MACHINIST Height 185.4 cm (6' 1) 04/22/2018 1:12 PM CARTON MAKING MACHINIST Body Mass Index 34.7 04/22/2018 1:12 PM CARTON MAKING MACHINIST Plan of Treatment Health Maintenance Due Date Last Done Comments Hepatitis C Virus (HCV) Screening 1965 TdaP Immunization 1965 Hepatitis B Immunization (1 of 3 - 19+ 3-dose series) 01/10/1984 Pneumococcal Immunization (5 0+ years) (1 of 2 - PCV) 01/10/1984 Cologuard 2010 Colonoscopy 2010 Colorectal Cancer Screening 2010 Immunochemical Fecal Occult Blood 2010 Zoster Immunization (1 of 2) 2015 SARS-COV-2 Immunization (1 - 2023- season) 2024 Influenza Immunization (Seas on Ended) 2025 Respiratory Syncytial Virus (RSV) Immunization (Adult) (1 - 1-dose 75+ series) 01/10/2040 Human Papillomavirus (HPV) Immunization Aged Out No longer eligible b ased on patient's age to complete this topic Meningococcal Immunization (ACWY) Aged Out No longer eligible based on patient's age to complete this topic Rotavirus Immunization Aged Out No lo nger eligible based on patient's age to complete this topic Care Teams Diabetes Specialist Relationship Specialty Start Date End Date Angelina Gibson, JOSEPH, PRECISION AIRCRAFT STRUCTURE ASSEMBLER [address] [place] [address] PCP - General Family Medicine 03/20/18
--- OUTSIDE RECORDS SUMMARY | 2024-10-20 12:48 | XMS_ITS | Clinical Summary ---
Author Organization [facility] Address [address], [address] [address] Phone Care Team Providers Care Veneer Marker Name Role Phone Angelina Gibson APRN, JAMILAH [...] Pressure 104/68 04/22/2018 1:12 PM INTEGRATION SOFTWARE ENGINEER Pulse 97 04/22/2018 1:12 PM INTEGRATION SOFTWARE ENGINEER Temperature 36.6 C (97.8 F) 04/22/2018 1:12 PM INTEGRATION SOFTWARE ENGINEER Respiratory Rate 20 04/22/2018 1:12 PM INTEGRATION SOFTWARE ENGINEER Oxygen Saturation 96% 04/22/2018 1:12 PM INTEGRATION SOFTWARE ENGINEER Inhaled Oxygen Concentration - - Weight 119.3 kg (263 lb) 04/22/2018 1:12 PM INTEGRATION SOFTWARE ENGINEER Height 185.4 cm (6' 1) 04/22/2018 1:12 PM INTEGRATION SOFTWARE ENGINEER Body Mass Index 34.7 04/22/2018 1:12 PM INTEGRATION SOFTWARE ENGINEER Plan of Treatment Health Maintenance Due Date [...] age to complete this topic Care Teams Veneer Marker Relationship Specialty Start Date End Date Angelina Gibson, JOSEPH, SENIOR CARE SPECIALIST [address] [place] [address] PCP - General Family Medicine 03/20/18
== END 2024-10-20 11:56 | disposition home or self-care (01) ==
PROVIDERS: Emergency Provider Emergency Medicine; PCP Registered Nurse
DX: S09.90XA Unspecified injury of head, initial encounter (principal); I25.10 Atherosclerotic heart disease of native coronary artery without angina pectoris; E11.9 Type 2 diabetes mellitus without complications; I25.2 Old myocardial infarction; I10 Essential (primary) hypertension; Z85.118 Personal history of other malignant neoplasm of bronchus and lung; W22.8XXA Striking against or struck by other objects, initial encounter
CPT/HCPCS: 70450; 99283; A9270

== ENCOUNTER 2024-11-01 07:14 | Emergency (ER) | payer MEDICARE, MEDICAID, SELFPAY ==
--- NOTE | ~2024-11-01 | CT_ITS ---
Non-contrast CT scan of the Abdomen and Pelvis Clinical indication: Right flank pain Technique: 2.5 mm axial scans were obtained through the abdomen and pelvis without intravenous or or al contrast. Dose reduction technique was used on this scan by utilizing automated exposure control a nd iterative reconstruction technique. The dose-length product (DLP) was 506.10 mGy-cm. Findings: Images through the lung bases reveal no abnormalities. There is no evidence of renal or ureteral calculi. The kidneys and the ureters are nondilated. Somewhat nodular contour liver suggests early change. 3.5 cm low-density right adrenal nodule is comp atible with adenoma. The spleen, pancreas, gallbladder, and left adrenal gland appear normal. There is no aortic aneurysm. There is no evidence of bowel obstruction. Images through the pelvis were performed. There is no evidence of ascites or lymphadenopathy. Urinary bladder unremarkable. No pelvic mass seen. There is probable moderate to severe spinal canal stenosis at L4-L5 with disc bulge and facet arthrop athy. There is mild degenerative change of the remainder of the lumbar spine. Impression: Probable cirrhotic morphology of the liver. 3.5 cm right adrenal adenoma. Reviewed, dictated and finalized at location . Impression: Probable cirrhotic morphology of the liver. 3.5 cm right adrenal adenoma.
[2024-11-01 07:18] VITALS: BP 146/83; PULSE 80; RESP 16; TEMP 36.4; O2SAT 97
--- NOTE | 2024-11-01 07:26 | ED_ITS ---
HPI - Back Pain/Injury General Chief Complaint: Back Pain/Injury Stated Complaint: R lower back pain. kidney stone? Time Seen by Provider: 11/01/24 07:18 Source: patient Mode of arrival: ambulatory Limitations: no limitations History of Present Illness HPI Narrative: Patient presents with right flank/low back pain. He has a history of kidney stone in his concern for similar. He also has a history of chronic back pain and for this as well as history of arthritis and neuropathy secondary to his diabetes mellitus he is on chronic opiate therapy. He took 1 Chandler prior to arrival. He denies any hematuria or dysuria although he has been having urinary urgency and frequency. He notes that flexion of the spine improves his symptoms but extension exacerbates them. He also notes he has pain when he bends to the right. No injury or trauma. He denies any bowel or bladder changes such as incontinence or retention. He notes that he will occasionally have paresthesias in his right leg extending to the right knee. He also has the history of neuropathy in his bilateral feet. He denies any saddle anesthesia, abdominal pain. He has a history of lung cancer once. He denies any chronic steroid use, fevers, chills, IV drug use, or syncope. He previously saw a urologist when he had a kidney stone previously but that was 5 or 6 years ago. He does not believe surgical intervention was required at that time. Related Data Home Medications ?Medication ?Instructions ?Recorded ?Confirmed ?Last Taken ?Type fluticasone furoate 200 1 inh inhalation DAILY 08/15/20 11/01/24 11/01/24 History mcg-vilanterol 25 mcg/dose inhalation powder (Breo Ellipta) insulin glargine 100 unit/mL (3 60 unit subcut HS 08/15/20 11/01/24 10/31/24 History mL) subcutaneous pen (Basaglar KwikPen U-100 Insulin) losartan 50 mg tablet 50 mg PO DAILY 08/15/20 11/01/24 11/01/24 History metformin 1,000 mg tablet 1,000 mg PO BID 08/15/20 11/01/24 11/01/24 History pen needle, diabetic 31 gauge x 08/15/20 10/14/24 Unknown History 09/25 (BD Ultra-Fine Short Pen Needle) trazodone 50 mg tablet 50 mg PO HS 0411/01/24 10/31/24 History atorvastatin 20 mg tablet 20 mg PO DAILY 05/29/22 11/01/24 11/01/24 History empagliflozin 25 mg tablet 25 mg PO DAILY 05/29/22 11/01/24 11/01/24 History (Jardiance) gabapentin 100 mg capsule 200 mg PO TID 05/29/22 11/01/24 11/01/24 History hydrocodone 7.5 mg-acetaminophen 1 tablet PO Q6H PRN Pain 05/29/22 11/01/24 11/01/24 History 325 mg tablet Allergies Allergy/AdvReac Type Severity Reaction Status Date / Time No Known Allergies Allergy Verified 11/01/24 07:16 [facility] Past Medical History Medical History (Updated 11/02/24 @ 00:00 by [facility]) Chronically on opiate therapy Thrombocytopenia Metabolic dysfunction-associated steatohepatitis (MASH) Adenomatous colon polyp History of alcohol abuse CAD (coronary artery disease) Obesity Screening for colon cancer Pancytopenia Diabetes Myocardial infarction Patient reports having an WI in his 30s attributed to stress. Treated medically. No heart catheterization. Obstructive sleep apnea Cirrhosis Noted on CT on 05/29/2022. Gastroesophageal reflux disease Diabetic peripheral neuropathy History of kidney stones Gastroesophageal reflux Type 2 diabetes mellitus History of lung cancer Patient reports history of bilateral pulmonary nodule suspicious for cancer. They were never biopsied but presumed to be malignant. He completed a marijuana treatment and the nodules essentially resolved. Hypertension Surgical History Surgical History History of right mastoidectomy (10/25/20) History of tympanoplasty History of orchiectomy Secondary to left-sided testicular torsion. History of appendectomy Family History Family History Mother Congestive heart failure Diabetes mellitus Sibling Diabetes mellitus Other No significant family history Social History Social History Social History: Surrogate decision maker: Janny Mae, friend. Code status: Full code. Smoking status: Never smoker Alcohol intake: former Drinks per week: 1 Alcohol use details: 1 L WHISKEY PER DAY,NONE 23 YRS Substance use: never Substance use type: does not use Other substance usage details: Patient uses medical marijuana. Lack of Transportation: No Lack of Food: Never True Current Housing: I Do Not Have Housing Concerned About Future Housing: No Difficulty Paying Gas/Electric Bills: No Difficulty Paying for Meds: No Currently Unemployed: No Education: High School Diploma/GED Difficulty w/ Childcare or Family Care: No Living arrangements: with friend(s) Additional occupation/education comments: Disabled. Gender identity (if verbalized by the patient): Male Spiritual care concerns: No Exam Narrative: GENERAL: Well-appearing, well-nourished, and in no acute distress. HEAD: Normocephalic, atraumatic. EYES: Non injected, non icteric ENT: Nares clear, no rhinorrhea or epistaxis. Gross auditory acuity intact. NECK: Supple. No meningismus. CHEST: Speaking in full sentences. No respiratory distress. HEART: Regular rate and rhythm. . ABDOMEN: Soft, nondistended. No rigidity or guarding. Not peritoneal. No tenderness to palpation throughout. EXTREMITIES: No lower extremity edema. SKIN: Warm, dry, no rash. Lidocaine patch in place on right back. BACK: No midline spinal so processes without bony step-offs. CVA tenderness on the right but without CVA tenderness on the left. Patient able to demonstrate some flexion extension and [id number] movements at lumbar spine. NEURO: No focal deficits. Alert and oriented. Answering questions. Following commands. Normal speech without aphasia or dysarthria. Neuropathy in bilateral feet, chronic. Sensation otherwise intact throughout bilateral shins and thighs. 5/5 ankle plantar flexion and dorsiflexion. 5/5 knee flexion and extension. 5/5 strength with bilateral hip flexion and abduction. Patient does have difficulty with bilateral hip ADDuction, makes attempt which appears to be strong and symmetric but unable to have full ROM towards midline. PSYCH: Normal mood and affect. Course Vital Signs Vital signs: Vital Signs Temperature 97.5 F L 11/01/24 07:18 Pulse Rate 80 11/01/24 07:18 Respiratory Rate 16 11/01/24 07:18 Blood Pressure 146/83 H 11/01/24 07:18 Pulse Oximetry 97 11/01/24 07:18 Oxygen Delivery Room Air 11/01/24 07:18 Temperature 97.5 F L 11/01/24 09:00 Pulse Rate 69 11/01/24 09:00 Respiratory Rate 16 11/01/24 09:00 Blood Pressure 125/75 11/01/24 09:00 Pulse Oximetry 97 11/01/24 09:00 Oxygen Delivery Room Air 11/01/24 07:18 MDM - Back Pain/Injury MDM Narrative Medical decision making narrative: Patient presents with right low back/flank pain. He has a history of a kidney stone. In the emergency department he is afebrile with acceptable vital signs, mild hypertension. Back has no deformities, external skin changes, or signs of trauma. Curvature is within normal limits. No tenderness is noted on palpation of the spinous processes which are midline. Patient demonstrates flexion, extension, and si de-to-side rotation of the lumbar spine. Sensation to the lower extremities is normal bilaterally with the exception of neuropathy in his bilateral feet to the ankles which he states is chronic secondary to diabetes. Dorsi/plantar flexion is normal bilaterally. They do not have any other red flags for infection (e.g. spinal epidural abscess), or aortic/vascular: Age, no trauma, not on chronic steroids, no fever, IV drug use, abdominal pain, syncope. HOwever, given urinary symptoms and history of malignancy and stones, will proceed with imaging at this time. Patient already took a Chandler tablet at home. He is chronically on opiate therapy. Will give additional 650 mg acetaminophen as well as muscle relaxer. Patient also already has a lidocaine patch in place. The report of pain on the right with occasional radiation feels like a paresthesia that terminates at the knee does sound classically like sciatica. Urinalysis with glucosuria secondary to diabetes. Otherwise without signs of infection. Discharged with Rx for multiple analgesic modalities. GIven ED return precautions. Differential Diagnosis Differential diagnosis: Likely lumbar radiculopathy, sciatica, strain of lumbar region, renal colic, pyelonephritis and other (Kidney stone; malignancy/pathologic fracture) Lab Data Attestation: I reviewed the patient's lab results. Labs: Lab Results 11/01/24 Range/Units 07:37 Urine Color Yellow (Yellow) Urine Appearance Clear (Clear) Urine pH 5.0 (5.0-9.0) Ur Specific [place] 1.038 H (1.001-1.035) Urine Protein Trace (Negative) mg/dL Urine Glucose (UA) 3+ H (Negative) mg/dL Urine Ketones Negative (Negative) mg/dL Ur Blood (Man) Negative (Negative) Urine Nitrate Negative (Negative) Urine Bilirubin Negative (Negative) Urine Urobilinogen 0.2 (<2.0) mg/dL Leukocyte Esterase Rfl Negative (Negative) SALLY/UL Urine RBC 0-2 (0-2) /hpf Urine WBC 0-5 (0-3) /hpf Ur Squamous Epith Cells None seen (Few) /hpf Urine Bacteria None seen /hpf Urine Casts 0-2 Imaging Data Radiologist's impression: Impressions Abdomen/Pelvis CT 11/01/24 08:12 Impression: Probable cirrhotic morphology of the liver. 3.5 cm right adrenal adenoma. Discharge Plan Discharge Clinical Impression: Right-sided low back pain with right-sided sciatica, Glucosuria, Cirrhosis of liver, Adrenal adenoma Patient Disposition: Home Condition: Stable Instructions: Antibiotic Form, Cirrhosis of the Liver (ED), Sciatica (ED), Lower Back Exercises (ED) Additional Instructions: Acetaminophen/Tylenol (maximum 4000 mg per day) is safe to take with NSAIDs (ibuprofen/Motrin) for pain relief. Each of your Chandler tablets contains acetaminophen so make sure you take that into account so that you are not accide ntally overdosing on this medication. You can continue to use the topical lidocaine patches. More have been prescribed if needed. You can also use the muscle relaxer at night. The goal is multimodal pain relief is to use a combination of medications to improve your pain to allow for a balance of both rest but also maintaining activity and the ability to perform stretching/strengthening exercises. Follow-up with your primary care provider if not improving over the next 3-5 days as, if so, this may require alternative pain medication, advanced imaging, physical therapy, etc.. Return to the ER if you have increased pain in your back, you develop lower extremity weakness/numbness/paralysis, you have numbness or tingling in your private parts, or you are unable to control your ability to urinate/stool. Patient Language: Russian Prescriptions: New acetaminophen 650 mg tablet extended release 650 mg PO Q8H PRN (Reason: pain) Qty: 30 0RF ibuprofen 600 mg tablet 600 mg PO TID PRN (Reason: pain) Qty: 30 0RF lidocaine 4 % adhesive patch,medicated 1 patch topical DAILY PRN (Reason: pain) Qty: 10 0RF methocarbamol 750 mg tablet 1,500 mg PO HS Qty: 14 0RF No Action lidocaine 1.8 % adhesive patch,medicated 1 patch topical DAILY Qty: 30 0RF Rx Instructions: leave on most painful area for up to 12 hrs. do not use more than 1 patch in 24 hours. losartan 50 mg tablet 50 mg PO DAILY trazodone 50 mg tablet 50 mg PO HS metformin 1,000 mg tablet 1,000 mg PO BID (DME) pen needle, diabetic [BD Ultra-Fine Short Pen Needle] 31 gauge x 5/16 needle MISCELLANEOUS fluticasone furoate-vilanterol [Breo Ellipta] 200-25 mcg/dose blister with device 1 inh INHALATION DAILY insulin glargine [Basaglar KwikPen U-100 Insulin] 100 unit/mL (3 mL) insulin pen 60 unit SUBCUT HS Rx Instructions: 60 units daily hs atorvastatin 20 mg tablet 20 mg PO DAILY hydrocodone-acetaminophen 7.5-325 mg tablet 1 tablet PO Q6H PRN (Reason: Pain) gabapentin 100 mg capsule 200 mg PO TID Jardiance 25 mg tablet 25 mg PO DAILY Follow-up/Referrals: Paige,SIMONA Alfaro [Primary Care Provider] - Stand Alone Forms: Work/School Release IP Time of Disposition: 08:43
[2024-11-01 07:49] LABS: Add Urine Microscopic? YES; Appearance Urine Clear (Clear); Bacteria Urine None Seen /hpf; Bilirubin Urine Negative (Negative); Blood Urine Negative (Negative); Color Urine Yellow (Yellow); Glucose Urine UA 3+ mg/dL (Negative); Ketones Urine Negative (Negative); Leukocyte Esterase Ur Negative LEU/UL (Negative); Nitrate Urine Negative (Negative); Non Pathogenic Casts 0-2; Protein Urine Trace mg/dL (Negative); RBC Urine 0-2 /hpf (0-2); Specific Grav Ur 1.038 (1.001-1.035); Squamous Epithelial Cell Urine None Seen /hpf (Few); Urobilinogen Urine 0.2 mg/dL (<2.0); WBC Urine 0-5 /hpf (0-3)
[2024-11-01] MEDS: ACETAMINOPHEN 325 MG TABLET 650 MG PO (08:01)
[2024-11-01] MEDS: diazePAM (*CRX) 5 MG TABLET 2.5 MG PO (08:01)
[2024-11-01 08:02] VITALS: BP 134/77; PULSE 79; RESP 17; O2SAT 97
[2024-11-01] MEDS: KETOROLAC 30 MG/ML VIAL (*BKC) IM (08:43)
[2024-11-01 08:45] VITALS: BP 123/71; PULSE 75; RESP 16; O2SAT 97
[2024-11-01 09:00] VITALS: BP 125/75; PULSE 69; RESP 16; TEMP 36.4; O2SAT 97
== END 2024-11-01 09:10 | disposition home or self-care (01) ==
PROVIDERS: Emergency Provider Student in an Organized Health Care Education/Training Program; PCP Registered Nurse
DX: M54.41 Lumbago with sciatica, right side (principal); R81 Glycosuria; K74.60 Unspecified cirrhosis of liver; D35.01 Benign neoplasm of right adrenal gland; I25.10 Atherosclerotic heart disease of native coronary artery without angina pectoris; E11.9 Type 2 diabetes mellitus without complications; Z79.4 Long term (current) use of insulin; G47.33 Obstructive sleep apnea (adult) (pediatric); K21.9 Gastro-esophageal reflux disease without esophagitis; I10 Essential (primary) hypertension; Z85.118 Personal history of other malignant neoplasm of bronchus and lung
CPT/HCPCS: 74176; 81001; 96372; 99284; A9270; J1885

== ENCOUNTER 2025-04-02 14:01 | Outpatient (CLI) | payer MEDICARE, MEDICAID, SELFPAY ==
--- NOTE | ~2025-04-02 | CT_ITS ---
EXAMINATION: CT brain wo con DATE: 04/02/2025 14:39 INDICATION: Right-sided numbness and tingling TECHNIQUE: Computed tomography (CT) of the head was performed without intravenous contrast. The dose-length product was 605.33 mGy-cm. COMPARISON: October 20, 2024 FINDINGS: Mild chronic appearing microvascular ischemic appearing white matter changes with no large acute ischemic event. No gross mass, mass effect or bleed. Calvarial structures appear stable. IMPRESSION: 1. No gross intracranial mass effect or hemorrhage. Reviewed, dictated and finalized at location A. ESSOR OF COUNSELING
--- OUTSIDE RECORDS SUMMARY | 2025-04-02 14:06 | XMS_ITS | Clinical Summary ---
Author Organization [facility] Address [address] [place] [address] Care Team Providers Care Dog License Officer Supervisor Name Role Phone Angelina Gibson PRACTICAL NURSE-MACHINE II CUTTER Primary Care Provider Source Comments [facility]non-owned Affiliates and Associated Physician Practices is amultiple site organization consisting of ambulatory clinics and hospital sitesin [place], [place], [place] and [place]. This disclosure is being madepursuant to the Care Everywhere program and may not contain all information available regarding this patient. Last updated 18.[facility] Allergies No known active allergies Medications * Be aware that medications may not be up to date on this document. Alwaysverify current medications with the patient. metFORMIN (GLUCOPHAGE) 1000 MG tablet Take 1 (one) tablet by mouth 2 times daily with morning and evening meal 7 Active traZODone (DESYREL) 50 MG tablet Take [...] (4000 mg) / 24 hours. 30 tablet 1 Active gabapentin (NEURONTIN) 100 MG capsule Take 1 (one) capsule by mouth 3 times daily as needed (facial pain) 30 capsule 3 1 Active glucose 4 G chew tablet Take 1 (one) tablet by mouth as needed for Low blood sugar 30 tablet 11 1 Active albuterol HFA (PROVENTIL; VENTOLIN; PROAIR) 108 (90 Base) MCG/ACT inhaler Inhale 2 (two) puffs by mouth every 4 hours as needed 1 Active fluticasone-vi lanterol (BREO ELLIPTA) 200-25 MCG/INH inhaler Inhale 1 (one) puff by mouth once daily 1 Active atorvastatin (Lipitor) 40 MG tablet Take 1 (one) tablet by mouth at bedtime 4 Active Jardiance 25 MG tablet Take 1 (one) tablet by mouth once daily 4 Active naloxone HCl (Narcan) 4 MG/0.1ML nasal spray [place] 1 (one) spray into the nose as needed 3 Active ofloxacin (Floxin) 0.3 % otic solution Instill 4 (four) drops into left ear 2 times daily 10 mL 5 4 Active hydrOXYzine HCl (Atarax) 25 MG tablet Take 1 (one) tablet by mouth as directed 5 Active ZTlido 1.8 % PTCH Apply 1 patch to affected area once daily 5 Active Mounjaro 5 MG/0.5ML injection Inject 5 (five) mg subcutaneously every 7 days 5 Active HYDROcodone-ac etaminophen ([place]) 7.5-325 MG tablet Take 1 (one) tablet by mouth every 6 hours as needed pain Active HumaLOG KwikPen 100 UNIT/ML pen Inject 32 (thirty two) Units subcutaneously as directed 5 Active Lantus SoloStar pen Inject 80 (eighty) Units subcutaneously as directed 5 Active losartan (Cozaar) 100 MG tablet Take 1 (one) tablet by mouth once daily 5 Active omeprazole (PriLOSEC) 40 MG capsule Take 1 (one) capsule by mouth once daily 5 Active Active Problems Problem Noted Date Diagnosed [...] Encounters Date Type Department Care Team Description 03/24/2025 Travel 03/10/2025 Transcribe Orders 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 Gender Identity Not on file Sexual Orientation [...] 9:40 AM CDT Height 188 cm (6' 2) 08/17/2024 9:40 AM CDT Body Mass Index 33.43 08/17/2024 9:40 AM CDT Plan of Treatment Upcoming Encounters Date Type Department Care Team (Late st Contact Info) Description 04/15/2025 2:20 PM CONFERENCE PRODUCER Office Visit [facility] - Endocrinology [address] [place] [phone] Dexter Jackson MD [address] [place] [address] 08/25/2025 9:30 AM CDT Testing Visit [facility] - ENT [address] [place] [phone] Raegan Rodriguez AuD [address] [place] [address] [address] [place] [address] 08/25/2025 10:00 AM CDT Office Visit [facility] - ENT [address] [place] [phone] Jakob Vazquez MD [address] [facility] [address] [place] [address] Health Maintenance Due Date Last Done Comments COLOGUARD (AGES 45-75) - COLON CA SCREENING 1965 COLON MONITORING 1965 COLONOSCOPY - COLON CA SCREENING 1965 CT COLONOGRAPHY - COLON CA SCREENING 1965 Colorectal Cancer Screening 1965 FIT - COLON CA SCREENING 1965 FLEX SIG - COLON CA SCREENING 1965 Opioid Medication Agreement - Annual 1965 DTAP/TDAP/TD VACCINES (1 - Tdap) 01/10/1984 Respiratory Syncytial Virus (RSV) Vaccine Pt: or over 60 yrs (1 - Risk 50-74 years 1-dose series) 2015 ZOSTER VACCINE (1 of 2) 2015 DIABETES RETINOPATHY SCREENING 10/28/2020 DIABETES-FOOT EXAM WITH MONOFILAMENT 10/28/2020 DIABETES-HGB A1C 01/28/2021 10/28/2020, 02/05/2017 DIABETES-SERUM CREATININE 11/10/20212020, 10/31/2020, 10/30/2020, Additional history exists DEPRESSION SCREENING 05/13/2024 DIABETES - URINE PROTEIN SCREENING 05/13/2024 MEDICARE AWV CALENDAR YEAR 2024 COVID-19 VACCINE ( season) 2025 HEPATITIS C SCREENING Completed 10/29/2020 HIV SCREENING Completed 10/29/2020 PNEUMOCOCCAL VACCINE 50+ Completed 08/30/2021 INFLUENZA VACCINE Completed 03/04/2025, , 12/21/2021 HEPATITIS B VACCINE Aged Out No longe r eligible based on patient's age to complete this topic HIB VACCINE Aged Out No longer eligi [...] Procedure Name Priority Date/Time Associated Diagnosis Comments COMPREHENSIVE METABOLIC PANEL Routine 11/10/2020 8:24 AM CDT High risk medications (not anticoagulants) long-term use Mastoiditis of right side HEPATITIS C AB SCREEN RFLX NAAT QUANT Routine 10/29/2020 4:54 AM CDT HIV-1 HIV-2 ANTIBODY + HIV P24 AG PANEL AM Draw 10/29/2020 4:54 AM CDT HEMOGLOBIN A1C Routine 10/28/2020 8:22 AM CDT from Last 3 Months or Most Recently Relevant to Health Maintenance Results * (ABNORMAL) COMPREHENSIVE METABOLIC PANEL (11/10/2020 8:24 AM CDT) BUN 17 7 - 26 mg/dL 11/10/2020 3:02 PM [facility] Creatinine 1.00 0.71 - 1.16 mg/dL 11/10/2020 3:02 PM [facility] Sodium 137 136 - 145 mmol/L 11/10/2020 3:02 PM [facility] Potassium 3.9 3.5 - 4.5 mmol/L 11/10/2020 3:02 PM [facility] Chloride 104 98 - 107 mmol/L 11/10/2020 3:02 PM [facility] CO2 26 22 - 29 mmol/L 11/10/2020 3:02 PM [facility] Glucose 210(H) 70 - 115 mg/dL 11/10/2020 3:02 PM [facility] Calcium 8.9 8.4 - 10.2 mg/dL 11/10/2020 3:02 PM [facility] Protein Total 7.3 6.0 - 8.3 g/dL 11/10/2020 3:02 PM [facility] Albumin 3.4 3.4 - 5.0 g/dL 11/10/2020 3:02 PM [facility] Bilirubin Total 0.8 0.2 - 1.2 mg/dL 11/10/2020 3:02 PM [facility] Alkaline Phosphatase 70 40 - 150 U/L 11/10/2020 3:02 PM [facility] ALT 37 5 - 55 U/L 11/10/2020 3:02 PM [facility] AST 33 5 - 34 U/L 11/10/2020 3:02 PM [facility] Anion Gap 11 8 - 18 11/10/2020 3:02 PM CDT [facility] BUN/Creatinine Ratio 17 7 - 23 11/10/2020 3:02 PM CDT [facility] Osmolality Calculated 292 270 - 300 mOsm/kg 11/10/2020 3:02 PM T [facility] Albumin/Globulin Ratio 0.9(L) 1.1 - 2.3 11/10/2020 3:02 PM CDT [facility] eGFR by CKD-EPI 84(L) >=90 mL/min/1.7 3 m2 11/10/2020 3:02 PM CDT [facility] Blood BLOOD SPECIMEN / Unknown Venipuncture / Unknown 11/10/2020 8:24 AM CDT 11/10/2020 2:25 PM CDT us Savannah Gray MD LAB - CHEMISTRY ORDE JEAN Final Result Performing Organization Address [facility]/ZIP Co de Phone Number [address] [address], [place] [phone] * HEPATITIS C AB SCREEN RFLX NAAT QUANT (10/29/2020 4:54 AM CDT) Pathologist [facility] Hepatitis C Antibody Non-react ciara Non-reac tive 10/29/2020 6:03 AM CDT [facility] Comment:Hepatitis C Antibody screen indicates no serologic [...] 4:54 AM CDT 10/29/2020 5:19 AM CDT us Mike Block MD LAB - CHEMISTRY ORDERABLES Fi nal Result [address] [address], [place] [phone] * HIV-1 HIV-2 ANTIBODY + HIV P24 AG PANEL (10/29/2020 4:54 AM CDT) HIV Antigen/Antibod y 1 & 2 Non-reacti ve Non-react ciara 10/29/2020 6:03 AM CDT [facility] Comment:Neither HIV-1 p24 An tigen nor HIV-1/HIV-2 Antibodies are detected. Blood BLOOD SPECIMEN / Unknown Lab Venipuncture / Unknown 10/29/2020 4:54 AM CDT 10/29/2020 5:19 AM CDT Mike Block MD LAB - CHEMISTRY ORDERABLES Fi nal Result [facility] [address] [place] [address], [facility] [phone] * (ABNORMAL) HEMOGLOBIN A1C (10/28/2020 8:22 AM CDT) Pathologist [facility] Hemoglobin A1c 8.6(H) 4.4 - 6.3 % 10/28/2020 9:37 AM CDT [facility] Estimated Average Glucose 200 mg/dL 10/28/2020 9:37 AM CDT [facility] Comment: HbA1c Interpretation: Treatment target values recommended by ADA and other clinical organizations should be used to evaluate metabolic control in patients. Treatment Target Values: Normal : < 5.7% Pre-diabetes: 5.7-6.4% Diabetes: Equal to or greater than 6.5% Reference: [place] Diabetes Association Standards of Care in Diabetes -2014 In patients 70 years and older consider HbA1c target range of 7.0-7.5% Reference: Diabetes Mellitus in Older People: Position Statement on behalf of the International Association of Gerontology and Geriatrics (IAGG), the Diabetes Working Libertarian for Older People (EDWPOP), and the International Task Force of Experts in Diabetes. Gurjit Samuel, et al. J [place] [employer] Association. 2012 Test results diagnostic of diabetes should be repeated for confirmation. The [place]bia Capillary 2 assay for the measurement of HbA1c is a National Glycohemoglobin Standardization Program (NGSP)certified method. Blood BLOOD SPECIMEN / Unknown Lab Venipuncture / Unknown 10/28/2020 8:22 AM CDT 10/28/2020 8:34 AM CDT Zac Ferguson MD LAB - CHEMISTRY ORDERABLE S Final Result Performing Organization Address City/State/[facility] Co de Phone Number [facility] [address] [place] [address], [facility] [phone] from Last 3 Months or Most Recently Relevant to Health Maintenance Insurance MEDICAID - OUT OF STATE UHC MANAGED MEDICARE [facility] Advance Directives * Full Code (Latest Code Status on File) Date Activated Date Inactivated Comments 10/28/2020 1:25 AM 10/31/2020 8:47 PM Care Teams Dog License Officer Supervisor Relationship Specialty Start Date End Date Angelina Gibson APRN-MACHINE II CUTTER [address] [place] [id number] PCP - General 05/21/19
--- OUTSIDE RECORDS SUMMARY | 2025-04-02 14:06 | XMS_ITS | Clinical Summary ---
Author Organization [facility] Address [address] [facility] [address] [place] [address] Phone Care Team Providers Care Cell Manager Name Role Phone Angelina Gibson APRN, JAMILAH Primary Care Provider + Allergies No known active allergies Medications metFORMIN (GLUCOPHAGE) 1000 MG TabletIndication s:Thrombocytopen ia,Cough,Alcohol abuse 04/13/2018 Active LANTUS 100 UNIT/ML SolutionIndicati ons:Thrombocytop enia,Cough,Alcoh ol abuse INJECT 34 UNITS UNDER THE SKIN D 5 04/04/2018 Active atorvastatin (LIPITOR) 20 MG TabletIndication s:Thrombocytopen ia,Cough,Alcohol abuse nightly. 1 03/12/2018 Active glyBURIDE (DIABETA) 5 MG TabletIndication s:Thrombocytopen ia,Cough,Alcohol abuse 2 times daily. 1 03/26/2018 Active benzonatate (TESSALON) 100 MG CapsuleIndicatio ns:Thrombocytope linus,Cough,Alcoho l abuse as needed. 0 03/27/2018 Active sertraline (ZOLOFT) 100 MG TabletIndication s:Thrombocytopen ia,Cough,Alcohol abuse daily. 04/13/2018 Active albuterol (PROAIR HFA) 108 (90 Base) MCG/ACT Aerosol SolutionIndicati ons:Thrombocytop enia,Cough,Alcoh ol abuse take by inhalation. 10/24/2015 Active Mometasone Furo-Formoterol Fum (DULERA) 200-5 MCG/ACT AerosolIndicatio ns:Thrombocytope linus,Cough,Alcoho l abuse INL 2 PFS PO BID 06/19/2017 Active lisinopril (PRINIVIL, ZESTRIL) 10 MG TabletIndication s:Thrombocytopen ia,Cough,Alcohol abuse daily. 05/13/2017 Active losartan (COZAAR) 50 MG TabletIndication s:Thrombocytopen ia,Cough,Alcohol abuse Take by mouth daily. 05/17/2017 Active BREO ELLIPTA 200-25 MCG/INH AEROSOL POWDER, BREATH ACTIVATEDIndicat ions:Thrombocyto penia,Cough,Alco hol abuse INL 1 PUFF PO ITL D 2 03/27/2018 Active HYDROcodone-acet aminophen (NORCO) 5-325 MG TabletIndication s:Thrombocytopen ia,Cough,Alcohol abuse as needed. 0 03/17/2018 Active Active [...] Comments Blood Pressure 104/68 04/22/2018 1:12 PM TOBACCO WAREHOUSE AGENT Pulse 97 04/22/2018 1:12 PM TOBACCO WAREHOUSE AGENT Temperature 36.6 C (97.8 F) 04/22/2018 1:12 PM TOBACCO WAREHOUSE AGENT Respiratory Rate 20 04/22/2018 1:12 PM TOBACCO WAREHOUSE AGENT Oxygen Saturation 96% 04/22/2018 1:12 PM TOBACCO WAREHOUSE AGENT Inhaled Oxygen Concentration - - Weight 119.3 kg (263 lb) 04/22/2018 1:12 PM TOBACCO WAREHOUSE AGENT Height 185.4 cm (6' 1) 04/22/2018 1:12 PM TOBACCO WAREHOUSE AGENT Body Mass Index 34.7 04/22/2018 1:12 PM TOBACCO WAREHOUSE AGENT Plan of Treatment Health Maintenance Due Date Last Done Comments Hepatitis C Virus (HCV) Screening 1965 TdaP Immunization 1965 Varicella Immunization (1 of 2 - 13+ 2-dose series) 1978 Cologuard 2010 Colonoscopy 2010 Colorectal Cancer Screening 2010 Immunochemical Fecal Occult Blood 2010 Pneumococcal Immunization (5 0+ years) (1 of 1 - PCV) 2015 Zoster Immunization (1 of 2) 2015 Influenza Immunization (#1) 2025 SARS-COV-2 Immunization (1 - 2024- season) 2025 Respiratory Syncytial Virus (RSV) Immunization (Adult) (1 - 1-dose 75+ series) 01/10/2040 Hepatitis B Immunization Aged Out No longer eligible based on patient's age to complete this topic Human Papillomavirus (HPV) Immunization Aged Out No longer eligible b ased on patient's age to complete this topic Meningococcal Immunization (ACWY) Aged Out No longer eligible based on patient's age to complete this topic Rotavirus Immunization Aged Out No lo nger eligible based on patient's age to complete this topic Care Teams Cell Manager Relationship Specialty Start Date End Date Angelina Gibson, CHIEF ADMINISTRATIVE OFFICER, STORYBOARD ARTIST [address] [place] [id number] PCP - General Family Medicine 03/20/18
--- OUTSIDE RECORDS SUMMARY | 2025-04-02 14:06 | XMS_ITS | Encounter Summary ---
Author Organization [facility] Address [address] [facility] [place] [address] Care Team Providers Care Grade Foreman Name Role Phone Angelina Gibson HELP DESK ADMINISTRATOR-NETWORKING ENGINEER Primary Care Provider Reason for Visit * Reason Onset Date Comments Appointment 04/03/2024 Encounter Details Date Type Department Care Team (Late st Contact Info) Description 04/03/2024 Telephone [facility] - ENT [address] [place] [address] Jakob Vazquez MD [facility] DOOR [address] [place] [address] Appointment Social History Tobacco Use Types Packs/Day Years Used Date Smoking Tobacco: Never Smokeless Tobacco: Never Alcohol Use Standard Drinks/Week Comments Not Currently 0 (1 standard drink = 0.6 oz pur e alcohol) Sex and Gender Information Value Date Recorded Sex Assigned at Not on file Legal Sex Male 5:28 AM MANAGED CARE SPECIALIST Gender Identity Not on file Sexual Orientation [...] inside the ear Patient Call Back Number: [phone] GED CARE SPECIALIST documented in this encounter Plan of Treatment Upcoming Encounters Date Type Department Care Team (Late st Contact Info) Description 04/15/2025 2:20 PM MANAGED CARE SPECIALIST Office Visit [facility] - Endocrinology [address] [place] [phone] Dexter Jackson MD [address] [place] [address] 08/25/2025 9:30 AM CDT Testing Visit [facility] ENT [address] [place] [phone] Raegan Rodriguez AuD [address] [place] [address] [address] [place] [address] 08/25/2025 10:00 AM CDT Office Visit [facility] ENT [address] [place] [phone] Jakob Vazquez MD [address] [place] [address] [address] [place] [address] documented as of this encounter Visit Diagnoses Not on filedocumented in this encounter Care Teams Grade Foreman Relationship Specialty Start Date End Date Angelina Gibson, HELP DESK ADMINISTRATOR-NETWORKING ENGINEER [address] [place], [place] [id number] PCP - General 05/21/19 documented as of this encounter
== END 2025-04-02 14:02 | disposition home or self-care (01) ==
PROVIDERS: PCP Registered Nurse; Visit Provider Registered Nurse
DX: R20.0 Anesthesia of skin (principal); R20.2 Paresthesia of skin
CPT/HCPCS: 70450

== ENCOUNTER 2025-04-26 07:17 | Outpatient (CLI) | payer MEDICARE, MEDICAID, SELFPAY ==
--- NOTE | ~2025-04-26 | US_ITS ---
US right upper quadrant Indication: K74.60 - Unspecified cirrhosis of liver Comparison: None Technique: Fox-scale and color Doppler images were obtained. Findings: LIVER: Moderate increased echogenicity of the liver. . GALLBLADDER/BILIARY: Unremarkable.No cholelithiais, wall thickening or pericholecystic fluid. No biliary dilatation. CBD 4 mm. [place] sign negative. PANCREAS: Pancreas limited by bowel gas. Right Kidney: Right kidney was not imaged. Impression: Moderate hepatic steatosis versus hepatocellular disease Reviewed, dictated and finalized at location P. HANDLER Impression: Moderate hepatic steatosis versus hepatocellular disease
--- NOTE | ~2025-04-26 | US_ITS ---
EXAMINATION: US carotid duplex BI DATE: 04/26/2025 09:29 INDICATION: Transient ischemic episode TECHNIQUE: Grayscale, color Doppler, and pulsed Doppler images of the cervical carotid arteries were obtained. The degree of vessel stenosis is placed in one of the following categories: normal, <50%, 50-69%, >=70% but less than near- occlusion, near-occlusion, or total occlusion. Note that percent stenosis relative to normal distal artery lumen diameter is indirectly measured from velocity measurements as described by Ananth, et al. Radiology 2003; 229:340-346. COMPARISON: None. FINDINGS: RIGHT: The right common carotid artery (CCA) peak systolic velocity (PSV) is 72 cm/s. The right internal carotid artery (ICA) PSV is 53 cm/s. The right ICA end- diastolic velocity (EDV) is 16 cm/s. The right ICA/CCA PSV ratio is 1.0. Grayscale and color Doppler images demonstrate no evidence stenosis or plaque in the ICA. The external carotid artery (ECA) PSV is 102 cm/s. There is antegrade flow in the right vertebral artery. LEFT: The left CCA PSV is 64 cm/s. The left ICA PSV is 72 cm/s. The left ICA EDV is 19 cm/s. The left ICA/CCA PSV ratio is 1.1. Grayscale and color Doppler images demonstrate no evidence stenosis or plaque in the ICA. The ECA PSV is 83 cm/s. There is antegrade flow in the left vertebral artery. IMPRESSION: 1. No evident plaque or stenosis in the right internal carotid artery. 2. No evident plaque or stenosis in the left internal carotid artery. Reviewed, dictated and finalized at location A. CH ENGINE OPTIMIZATION ANALYST
[2025-04-26 09:06] LABS: Hematocrit 43.3 % (42.0-52.0); Hemoglobin 14.0 g/dL (14.0-18.0); Immature Platelet Fraction Pct 6.5 % (0.9-11.2); Mean Corpuscular HGB Conc 32.3 g/dl (32-36); Mean Corpuscular Hemoglobin 30.2 pg (26-34); Mean Corpuscular Volume 93.5 fl (80-100); Platelet Count Result 84 k/mm3 (150-375); Red Blood Count 4.63 M/mm3 (4.6-6.20); White Blood Count 4.4 K/mm3 (4.5-10.0)
[2025-04-26 09:30] LABS: INR 1.1; Prothrombin Time 14.8 Seconds (11.1-14.7)
[2025-04-26 09:31] LABS: Alanine Aminotransferase 53 U/L (6-50); Albumin Level 4.3 g/dL (3.5-5.1); Alkaline Phosphatase 93 U/L (38-126); Anion Gap 6 mmol/L (4-12); Aspartate Amino Transferase 37 U/L (17-59); Bilirubin,Total 0.7 mg/dL (0.2-1.3); Blood Urea Nitrogen 27 mg/dL (9-20); Calcium 9.6 mg/dL (8.4-10.2); Carbon Dioxide 26 mmol/L (22-30); Chloride 109 mmol/L (98-107); Estimated Glomerular Filt Rate > 60; Glucose 194 mg/dL (65-110); Potassium 4.4 mmol/L (3.4-5.0); Sodium 141 mmol/L (137-145); Total Protein 7.9 g/dL (6.3-8.2)
== END 2025-04-26 07:18 | disposition home or self-care (01) ==
PROVIDERS: PCP Registered Nurse; Visit Provider Internal Medicine Gastroenterology
DX: K74.60 Unspecified cirrhosis of liver (principal); K75.81 Nonalcoholic steatohepatitis (NASH); E11.9 Type 2 diabetes mellitus without complications; G45.9 Transient cerebral ischemic attack, unspecified
CPT/HCPCS: 36415; 76705; 80053; 85027; 85055; 85610; 93880

== ENCOUNTER 2025-05-10 06:59 | Outpatient (CLI) | payer MEDICARE, MEDICAID, SELFPAY ==
--- NOTE | 2025-05-10 | ECHO_ITS ---
Patient Info Name: Vaibhav Ntahan Age: 60 years : 1965 Gender: Male Ht: 74 in Wt: 270 lbs BSA: 2.57 m2 HR: 75 bpm BP: 143 / 83 mmHg Technical Quality: Poor Exam Date: 05/10/2025 8:10 AM Patient Status: O Admit Date: 05/10/2025 Exam Type: CA echo dop bubble study w con Complete two-dimentional, color flow and Doppler transthoracic echocardiogram is performed with agitated saline and with contrast to opacify the left ventricle and to improve the delineation of the left ventricle endocardial borders. Photo Offset Printer: Leticia Mejía Attending Provider: Angelina Gibson Contrast/Agitated Saline Contrast/Ag. Saline: Agitated Saline Amount: 20.00 ml New IV Access: Right and Antecubital Space Contrast/Ag. Saline: Definity Amount: 3.00 ml New IV Access: Right and Antecubital Space Site Condition: IV removed and Site dressing applied Reason for Poor Study: patient body habitus Summary 1. Left ventricular systolic function is normal, estimated at 60-65. 2. Intact interatrial septum visualized by agitated saline imaging. Left Ventricle Left ventricular chamber dimension is normal. Left ventricular systolic function is normal, estimated at 60-65. There is no increased left ventricular wall thickness. Left ventricular septal wall motion is normal. The left ventricular diastolic function is normal. Right Ventricle Right ventricular chamber dimension is normal. Right ventricular systolic function is normal. Left Atria Left atrial chamber dimension is normal. Right Atria Right atrial chamber dimension is normal. Atrial Septum Intact interatrial septum visualized by agitated saline imaging. Aortic Valve The aortic valve is trileaflet. There is no aortic valve sclerosis. There is no aortic valve stenosis. There is no aortic valve regurgitation. Pulmonic Valve The pulmonic valve is normal. There is no pulmonic valve stenosis. There is no pulmonic regurgitation. Mitral Valve The mitral valve has normal leaflets. There is no mitral valve stenosis. There is no mitral valve regurgitation. Tricuspid Valve The tricuspid valve leaflets are normal. There is no significant tricuspid valve stenosis. There is no tricuspid valve regurgitation. Pericardium/Pleural The pericardium appears normal. There is no pericardial effusion. Inferior Vena Cava Normal inferior vena cava with >50% collapse upon inspiration consistent with normal right atrial pressure, 5 mmHg. Aorta The aortic root size at the sinus of Valsalva is normal. The prox ascending aorta size is normal. Left Ventricular Outflow Tract Name Value Normal LVOT 2D LVOT Diameter 2.0 cm LVOT Doppler LVOT Peak Velocity 90 cm/s LVOT Peak Gradient 3 mmHg LVOT Mean Gradient 2 mmHg LVOT VTI 19 cm LVOT VTI/AV VTI Ratio 0.7 LVOT Stroke Volume 59 ml LVOT CO 4.0 l/min LVOT CI 1.6 l/min/m2 Pulmonic Valve Name Value Normal RVOT Doppler RVOT Peak Velocity 78 cm/s RVOT Peak Gradient 2 mmHg PV Doppler PV Peak Velocity 90 cm/s PV Peak Gradient 3 mmHg Mitral Valve Name Value Normal MV Diastolic Function MV E Peak Velocity 81 cm/s MV A Peak Velocity 76 cm/s MV E/A 1.1 MV Decel Time (PW) 198 ms Tricuspid Valve Name Value Normal Estimated PAP/RSVP RA Pressure 5 mmHg <=5 Aorta Name Value Normal Ascending Aorta Ao Root Diameter (MM) 3.2 cm Ao Root Diam Index (MM) 1.2 cm/m2 Aortic Valve Name Value Normal AV Doppler AV Peak Velocity 114 cm/s AV Peak Gradient 5 mmHg AV Mean Gradient 3 mmHg AV VTI 25 cm AV Area (Cont Eq VTI) 2.3 cm2 >=3.0 AV Area (Cont Eq Claudio) 2.5 cm2 AV DI (Claudio) 0.79 AV Regurgitation 2D LVOT Area 3.2 cm2 Ventricles Name Value Normal LV Dimensions 2D/MM IVS Diastolic Thickness (2D) 1.0 cm 0.6-1.0 IVS Diastole Thickness (MM) 1.1 cm 0.6-1.0 LVID Diastole (2D) 5.0 cm 4.2-5.8 LVID Diastole (MM) 5.3 cm 4.2-5.8 LVIW Diastolic Thickness (2D) 1.0 cm 0.6-1.0 LVIW Diastolic Thickness (MM) 1.0 cm 0.6-1.0 LVID Systole (2D) 3.2 cm 2.5-4.0 LVID Systole (MM) 3.3 cm 2.5-4.0 LVOT Diameter 2.0 cm LV Mass (2D Cubed) 184.01 g 88.00-224.00 LV Mass Index (2D Cubed) 72 g/m2 49-115 Relative Wall Thickness (2D) 0.40 <=0.42 LV Mass (MM Cubed) 214.97 g 88.00-224.00 LV Mass Index (MM Cubed) 84 g/m2 49-115 Relative Wall Thickness (MM) 0.36 LV Fractional Shortening/Ejection Fraction 2D/MM LV Fractional Shortening (2D) 35 % 25-43 LV Fractional Shortening (MM) 38 % 25-43 LV EF (MM Teichholz) 67 % LV EF (2D Teichholz) 64 % LV Diastolic Volume (4C MOD) 80 ml LV EF (4C MOD) 64 % LV Diastolic Volume (2C MOD) 53 ml LV EF (2C MOD) 71 % LV Diastolic Volume (BP MOD) 65 ml 62-150 LV Diastolic Volume Index (BP MOD) 25 ml/m2 34-74 LV Systolic Volume (BP MOD) 23 ml 21-61 LV Systolic Volume Index (BP MOD) 9 ml/m2 11-31 LV EF (BP MOD) 65 % 52-72 LV Diastolic Length (4C) 7.9 cm LV Systolic Length (4C) 6.6 cm LV Stroke Volume (4C MOD) 51 ml Atria Name Value Normal LA Dimensions LA Dimension (MM) 3.9 cm 3.0-4.0 Report Signatures
--- OUTSIDE RECORDS SUMMARY | 2025-05-10 07:06 | XMS_ITS | Encounter Summary ---
Author Organization [facility] Address [address] [place] [address] Care Team Providers Care Acquisitions Logistics Analyst Name Role Phone PaigeAngelina montana Jas MCKENNA Primary Care Provider [phone] Eliu Garcia MD Unavailable [phone] Encounter Details Date Type Department Care Team (Late st Contact Info) Description 03/20/2023 Raptr Message Enc [facility] Family Medicine - [place] [address] [facility], [address] [place] [address] [facility], [facility] Provider check in Social History Tobacco Use [...] place to sleep or slept in a half-way (including now)? No 06/14/2022 Sex and Gender Information Value Date Recorded Sex Assigned at Male 07/23/2024 8:31 AM CDT Legal Sex Male 7:15 PM CDT Gender Identity Not on file Sexual Orientation Not on file documented as of this encounter Plan of Treatment Upcoming Encounters Date Type Department Care Team (Late st Contact Info) Description 05/19/2025 9:00 AM REGULATOR ASSEMBLER Office Visit [facility] Medical Group Family & Internal Medicine [address] [phone] Angelina Gibson APNP [address] [place] [phone] documented as of this encounter Goals Goal [...] on 05/21/22: 10.8. Scheduled patient appointment with (Customer Service Driver) on 09/27/22 at 10:00 am. 07/25/22: Patient not taking medications as directed or checking his BG as directed. See note for complete details. Establish Plan for Symptom Monitoring Lifestyle On track(2022 3:24 PM CDT) Sara Felix, JUNIOR Note: DM: Patient to follow diabetic medication [...] documented as of this encounter Care Teams Acquisitions Logistics Analyst Relationship Specialty Start Date End Date Angelina Gibson APNP [address] [place] [phone] PCP - General NURSE PRACTITIONER 03/14/18 Eliu Garcia MD [facility], [address] [place] [address] Physician CARDIOVASCULAR DISEASE 03/06/23 documented as of this encounter
--- OUTSIDE RECORDS SUMMARY | 2025-05-10 07:06 | XMS_ITS | Clinical Summary ---
Author Organization [facility] Address [address] [place] [address] Care Team Providers Care Layboy Operator Name Role Phone Unavailable Primary Care Provider Unavailabl e Allergies No known active allergies Medications traZODone (DESYREL) 50 MG tablet Take 50 mg by mouth. 1 Active sertraline (ZOLOFT) 100 MG tablet Take 100 mg by mouth. 8 Active omeprazole (PriLOSEC) 40 MG capsule TAKE 1 CAPSULE(40 MG) BY MOUTH DAILY 0 Active mometasone-for moterol 200-5 mcg/actuation HFAA INL 2 PFS PO BID 8 Active metFORMIN (GLUCOPHAGE) 1000 MG tablet Take 1,000 mg by mouth. 7 Active losartan (COZAAR) 50 MG tablet TAKE 1 TABLET(50 MG) BY MOUTH DAILY 8 Active lisinopriL (ZESTRIL) 10 MG tablet daily. 8 Active insulin glargine (Lantus U-100 Insulin) 100 unit/mL injection INJECT 34 UNITS UNDER THE SKIN D 8 Active insulin glargine (Basaglar KwikPen U-100 Insulin) 100 unit/mL (3 mL) inpn Inject 60 units subcutaneously at bedtime 1 Active ibuprofen (MOTRIN) 800 MG tablet Take 800 mg by mouth 3 (three) times a day as needed. 1 Active HYDROcodone-ac etaminophen (NORCO) 7.5-325 mg tablet Take 1 tablet by mouth every 6 (six) hours as needed. 1 Active hydroCHLOROthi azide (HYDRODIURIL) 12.5 MG tablet Take 25 mg by mouth. 1 Active glyBURIDE (DIABETA) 5 MG tablet Take 5 mg by mouth. 8 Active fluticasone propionate (FLONASE) 50 mcg/actuation nasal spray SHAKE LIQUID AND USE 2 SPRAYS IN EACH NOSTRIL EVERY DAY 1 Active fluticasone furoate-vilant Dinorah (Breo Ellipta) 200-25 mcg/dose dsdv INHALE 1 PUFF BY MOUTH DAILY 8 Active dulaglutide (Trulicity) 1.5 mg/0.5 mL pnij Inject 1.5 mg subcutaneously. 1 Active clotrimazole (LOTRIMIN) 1 % cream Apply topically. 9 Active clindamycin (CLEOCIN) 300 MG capsule TAKE 1 CAPSULE BY MOUTH EVERY 8 HOURS FOR 7 DAYS 1 Active benzonatate (TESSALON) 100 MG capsule as needed. 8 Active atorvastatin (LIPITOR) 20 MG tablet TAKE 1 TABLET(20 MG) BY MOUTH EVERY NIGHT AT BEDTIME 8 Active amoxicillin (AMOXIL) 500 MG capsule amoxicillin 500 mg capsule TK 1 C PO TID TAT Active amLODIPine-chad rvastatin (CADUET) 5-80 mg tablet Take 1 tablet by mouth. Active Active Problems Problem Noted Date Diagnosed Date Mastoiditis 10/31/2020 Social History Tobacco Use Types Packs/Day Years Used Date Smoking Tobacco: Never Assessed Sex and Gender Information Value Date Recorded Sex Assigned at Not on file Legal Sex Male 3:51 PM EDT Gender Identity Not on file Sexual Orientation Not on file Last Filed Vital Signs Vital Sign Reading Time Taken Comments Blood Pressure - - Pulse - - Temperature - - Respiratory Rate - - Oxygen Saturation - - Inhaled Oxygen Concentration - - Weight 127 kg (280 lb) 10/31/2020 11:18 AM PDT Height 185.4 cm (6' 1) 10/31/2020 11:18 AM PDT Body Mass Index 36.94 10/31/2020 11:18 AM PDT Plan of Treatment Not on file Medical Devices Not on file Insurance [employer] - MEDICARE MEDICAID - [place]
--- OUTSIDE RECORDS SUMMARY | 2025-05-10 07:06 | XMS_ITS | Clinical Summary ---
[facility] Address [facility] [place] [address] Care Team Providers Care Brass Finisher Name Role Phone Oleg Gibson Primary Care Provider Eliu Garcia MD Unavailable [phone] Allergies No known active allergies Medications DIABETIC SHOES Diabetic shoesUSE [id number] GibsonctivePharmacy Instructions: please dispense 1 pair of shoes 2017 Active glucose chewable 4 GM chewable tablet Chew 1 tablet (4 g total) by mouth. 2020 Active Insulin Syringe-Needle U-100 (B-D INS SYR ULTRAFINE 1CC/31G) 31G X 5/16 1 ML MiscIndications: Type 2 diabetes mellitus with other neurologic complication, with long-term current use of insulin ([facility]) Use daily to inject insulin as directed 100 each 1 2021 Active Blood Glucose Monitoring Suppl (D-CARE GLUCOMETER) w/Device KitIndications:T ype 2 diabetes mellitus without complication, with long-term current use of insulin ([facility]),Uncontr olled type 2 diabetes mellitus with hyperglycemia ([facility]) 1 Device by Does not apply route daily. 1 kit 2022 Active Microlet Lancets MiscIndications: Type 2 diabetes mellitus with other neurologic complication, with long-term current use of insulin ([facility]),Uncontr olled type 2 diabetes mellitus with hyperglycemia ([facility]) USE TO TEST BLOOD GLUCOSE TID 100 each 3 2022 Active Glucose Blood (JOSE M CONTOUR NEXT TEST) test stripIndications :Type 2 diabetes mellitus with foot ulcer, with long-term current use of insulin ([facility]) TEST TID 300 strip 3 2022 Active Continuous Glucose Sensor (FREESTYLE TERRY 2 SENSOR) MiscIndications: Uncontrolled type 2 diabetes mellitus with hyperglycemia ([facility]),Type 2 diabetes mellitus with diabetic polyneuropathy, with long-term current use of insulin ([facility]) Use as directed. 6 each 3 2024 Active losartan (COZAAR) 100 MG tabletIndication s:Proteinuria, unspecified type Take 1 tablet (100 mg total) by mouth daily. 90 tablet 3 2024 Active ondansetron (ZOFRAN-ODT) 4 MG disintegrating tabletIndication s:Nausea & vomiting Take 1 tablet (4 mg total) by mouth every 8 (eight) hours as needed for Nausea. 20 tablet 2024 Active insulin glargine (LANTUS SOLOSTAR) 100 UNIT/ML injection (PEN)Indications :Type 2 diabetes mellitus with foot ulcer, with long-term current use of insulin ([facility]) Inject 80 Units into the skin nightly at bedtime. 36 mL 3 2024 Active metFORMIN (GLUCOPHAGE) 1000 MG tabletIndication s:Type 2 diabetes mellitus with other neurologic complication, with long-term current use of insulin ([facility]) Take 1 tablet by mouth twice daily 180 tablet 3 2024 Active traZODone (DESYREL) 50 MG tabletIndication s:Primary insomnia TAKE 1 TABLET BY MOUTH EVERY DAY AT BEDTIME 90 tablet 2024 Active albuterol sulfate HFA 108 (90 Base) MCG/ACT inhalerIndicatio ns:Shortness of breath Inhale 2 puffs into the lungs every 4 (four) hours as needed. FOR WHEEZING 8.5 g 2024 Active atorvastatin (LIPITOR) 40 MG tabletIndication s:Hyperlipidemia , mixed,Encounter for preprocedural cardiovascular examination Take 1 tablet (40 mg total) by mouth nightly at bedtime. at bedtime 90 tablet 2024 Active empagliflozin (JARDIANCE) 25 MG tabletIndication s:Type 2 diabetes mellitus with other neurologic complication, with long-term current use of insulin ([facility]),Type 2 diabetes mellitus with foot ulcer, with long-term current use of insulin ([facility]) Take 1 tablet (25 mg total) by mouth daily. 90 tablet 1 2024 Active fluticasone furoate-vilanter ol (BREO ELLIPTA) 200-25 MCG/ACT inhalerIndicatio ns:Shortness of breath,Polyneuro rubin associated with underlying disease ([facility]),Uncomp licated asthma, unspecified asthma severity, unspecified whether persistent ([facility]) Inhale 1 puff into the lungs daily. Inhale 1 puff into the lungs daily. 60 each 2024 Active gabapentin (NEURONTIN) 100 MG capsuleIndicatio ns:Polyneuropath y associated with underlying disease ([facility]) Take 2 capsules three times daily 540 capsule 1 2024 Active insulin lispro, 1 Unit Dial, (HUMALOG KWIKPEN) 100 UNIT/ML injection (PEN)Indications :Type 2 diabetes mellitus with other neurologic complication, with long-term current use of insulin ([facility]) IF BLOOD SUGAR IS 150-200 2 UNITS, IF 201-250 4 UNITS, IF 251-300 6 UNITS, IF 301-350 8 UNIT, IF>350 CALL OFFICE. CHECK THREE TIMES DAILY. Max 32 units daily 15 mL 1 2024 Active Insulin Pen Needle (TRUEPLUS 5-BEVEL PEN NEEDLES) 31G X 6 MM MiscIndications: Type 2 diabetes mellitus with foot ulcer, with long-term current use of insulin ([facility]) 1 Needle by Other route see administration instructions. 100 each 1 2024 Active omeprazole (PRILOSEC) 40 MG capsuleIndicatio ns:Gastroesophag eal reflux disease, unspecified whether esophagitis present Take 1 capsule (40 mg total) by mouth daily. 90 capsule 2024 Active sertraline (ZOLOFT) 100 MG tabletIndication s:Depression with anxiety Take 2 tablets by mouth once daily 180 tablet 2024 Active aspirin EC 81 MG tablet Take 1 tablet (81 mg total) by mouth daily. Active Lidocaine (ZTLIDO) 1.8 % PatchIndications :Other chronic pain,Low back pain potentially associated with radiculopathy Apply 1 patch topically daily. 30 patch 2024 Active HYDROcodone-acet aminophen (NORCO) 7.5-325 MG tabletIndication s:Chronic Pain Take 1 tablet by mouth every 6 (six) hours as needed for Pain. Indications: Chronic Pain 100 tablet 2024 Active tirzepatide (MOUNJARO) 2.5 MG/0.5ML injectionIndicat ions:Uncontrolle d type 2 diabetes mellitus with hyperglycemia (CMS/HCC HHS/HCC) INJECT 1 PEN SUBCUTANEOUSLY ONCE A WEEK 2 mL 1 2024 Active Lidocaine (ZTLIDO) 1.8 % PatchIndications :Other chronic pain,Low back pain potentially associated with radiculopathy Apply 1 patch topically daily. 30 patch 04/19 Discontinued tirzepatide (MOUNJARO) 2.5 MG/0.5ML injectionIndicat ions:Diabetes Mellitus Inject 2.5 mg into the skin every 7 days. Indications: Diabetes 2 mL 1 05/03 Discontinued HYDROcodone-acet aminophen (NORCO) 7.5-325 MG tabletIndication s:Chronic Pain Take 1 tablet by mouth every 6 (six) hours as needed for Pain. Indications: Chronic Pain 100 tablet 04/20 Discontinued( Reorder) Active Problems Problem Noted Date Diagnosed Date Obstructive sleep apnea 03/04/2025 Cirrhosis of liver without a scites, unspecified hepatic cirrhosis type 12/24/2023 Morbid (severe) obesity due to excess calories 0 12/24/2023 Trigger ring finger of left hand 11/07/2022 Trigger finger, left little finger 11/07/2022 Polyneuropathy associated with underlying diseas e 07/12/2020 Albuminuria 07/04/2020 Neuropathy 03/02/2019 Family history of coronary artery disease 2018 Chronic back pain 03/02/2019 Asthma 03/02/2019 Arthritis 03/02/2019 BMI 36.0-36.9,adult 01/22/2019 Left wrist pain 03/05/2018 Thrombocytopenia 08/16/2017 Daytime somnolence 05/17/2017 Insomnia 05/17/2017 Disorder of bone 02/07/2017 Overview (04/24/2018): Overview: R femur sclerotic lesion Disorder of adrenal gland 02/04/2017 Overview (04/24/2018): Overview: R 2.5cm adrenal mass Cardiac arrhythmia 01/30/2017 GERD (gastroesophageal reflux disease) 6 Balance problems 03/01/2016 ED (erectile dysfunction) 01/12/2016 Chronic cough 12/05/2015 Depression with anxiety 12/05/2015 Peripheral neuropathy 12/05/2015 Limb pain 04/22/2015 Reflex sympathetic dystrophy 11/05/2013 Primary hypertension Hyperlipidemia Type 2 diabetes mellitus wit h foot ulcer, with long-term current use of insulin Resolved Problems Problem Noted Date Diagnosed Date Resolved Date Care Management 06/14/2022 03/20/2023 Nephrolithiasis 07/04/2020 12/24/2023 Cellulitis of upper limb 04/01/2020 Screening for colon cancer 05/17/2017 0 01/22/2020 Encounter for general adult medical examination without abnormal findings 10/16/2013 Encounters Date Type Department Care Team Description 04/26/2025 Scan [facility] Scanned, [facility] Lab (SCAN); Vascular Lab Study (SCAN); Ultrasound (SCAN) 04/22/2025 Telephone [facility] Internal [address] [phone] Oleg Gibson APNP Information 04/20/2025 Telephone [facility] Internal [address] [phone] Oleg Gibson APNP Medication 04/14/2025 Scan [facility] Scanned, Doc Med Group 04/07/2025 9:00 AM WELFARE ANALYST Office Visit [facility] Internal [address] [phone] Oleg Gibson APNP Numbness 04/07/2025 Results Follow-Up [facility] Internal [address] [phone] Oleg Gibson APNP XR LUMB SPINE 3V 04/07/2025 Travel 04/02/2025 12:40 PM WELFARE ANALYST Office Visit [address] [phone] Oleg Gibson APNP Numbness 04/02/2025 Scan [facility] Scanned, Doc Med Group CT (SCAN) 04/02/[address] [phone] Oleg Gibson APNP Radiology Results (Head CT) 04/02/2025 Travel 03/25/[address] [phone] Oleg Gibson APNP Medication Request 03/05/2025 Patient Outreach [address] [phone] Karen Gardner, RN Hospital Follow Up (No response to calls) 03/04/2025 8:00 AM CDT Office Visit [address] [phone] Oleg Gibson APNP Diabetes; Hyperlipidemia; Hypertension; Depression 03/04/2025 Travel 02/24/[address] [phone] Oleg Gibson APNP Medication from Last 3 Months Immunizations Immunization Administration Dates Next Due Fluzone (IIV3, Trivalent, 0. 5 ML Prefilled Syringe) 03/04/2025,02/21/2024 Fluzone 6 Months+ Quad (0.5 mL Prefilled [...] Sign Reading Time Taken Comments Blood Pressure 136/84 04/07/2025 9:04 AM WELFARE ANALYST Pulse 77 04/07/2025 9:04 AM WELFARE ANALYST Temperature 36.2 C (97.1 F) 04/07/2025 9:04 AM WELFARE ANALYST Respiratory Rate 16 04/07/2025 9:04 AM WELFARE ANALYST Oxygen Saturation 98% 04/07/2025 9:04 AM WELFARE ANALYST Inhaled Oxygen Concentration - - Weight 122.9 kg (271 lb) 04/07/2025 9:04 AM WELFARE ANALYST Height 188 cm (6' 2) 04/07/2025 9:04 AM WELFARE ANALYST Body Mass Index 34.79 04/07/2025 9:04 AM WELFARE ANALYST Plan of Treatment Upcoming Encounters Date Type Department Care Team (Late st Contact Info) Description 05/19/2025 9:00 AM WELFARE ANALYST Office Visit [facility] Family & Internal Medicine - [address] [phone] Oleg Gibson, CLARISA [address] [place] [id number] Health Maintenance Due Date Last Done Comments Kidney Health Evaluation 1965 Annual Physical 01/10/1968 DTaP, Tdap and Td Vaccines (1 - Tdap) 01/10/1984 Hepatitis A Vaccines (1 of 2 - Risk 2-dose series) 01/10/1984 Zoster Vaccines (1 of 2) 2015 RSV Immunization or 60+ Years (1 - Risk 60-74 years 1-dose series) 2025 COVID-19 Vaccine ( - season) 2025 Lipid Panel 06/11/2025 06/11/2024, 01/2023, 01/26/2021, Additional history exists Hemoglobin A1C 07/08/2025 04/07/2025, 10/2 07/2024, 09/29/2024, Additional history exists Diabetes: Retinopathy Eye Exam 10/01/2025 10/01/2024, 09/28/2024, 08/24/2024, Additional history exists Colorectal Cancer Screening Colonoscopy (10 Years) 05/13/2027 Pneumococcal Vaccine: 50+ Years Completed 08/30/2021 Hepatitis C Completed 02/12/2023, 10/29/2020 PHQ-2 (Physician [employer]) Completed 06/11/2024 Influenza Adult Completed 03/04/2025, 02/10, 12/21/2021 Meningococcal B Vaccine Aged Out No l [...] on 05/21/22: 10.8. Scheduled patient appointment with (Acid Cleaner) on 09/27/22 at 10:00 am. 07/25/22: Patient [...] Procedure Name Priority Date/Time Associated Diagnosis Comments VASCULAR LAB GENERIC (SCAN ORDER) 04/26/2025 OUTSIDE PT/INR (SCAN ORDER) 04/26/2025 OUTSIDE LAB (SCAN ORDER) 04/26/2025 ULTRASOUND GENERIC (SCAN ORDER) 04/26/2025 XR LUMB SPINE 3V Routine 04/07/2025 10:0 0 AM WELFARE ANALYST Low back pain potentially associated with radiculopathy COLLECT.CAPILLARY (FNGR,HEEL,EAR) Routine 04/07/2025 9:38 AM WELFARE ANALYST Uncontrolled type 2 diabetes mellitus with hyperglycemia ([facility]) HEMOGLOBIN, GLYCOSYLATED Routine 04/07/2025 Uncontrolled type 2 diabetes mellitus with hyperglycemia ([facility]) CT GENERIC 04/02/2025 CT GENERIC 04/02/2025 CT GENERIC 04/02/2025 COLLECT.CAPILLARY (FNGR,HEEL,EAR) Routine 03/04/2025 8:04 AM CDT Uncontrolled type 2 diabetes mellitus with hyperglycemia ([facility]) HEMOGLOBIN, GLYCOSYLATED Routine 03/04/2025 Uncontrolled type 2 diabetes mellitus with hyperglycemia ([facility]) DIABETIC RETINOPATHY EXAM (POSITIVE)(SCAN ORDER) Routine 10/01/2024 LIPID PANEL Routine 06/11/2024 9:27 AM WELFARE ANALYST Mixed hyperlipidemia HEP C SCANNED ORDERS Routine 02/12/2023 from Last 3 Months or Most Recently Relevant to Health Maintenance Results * VASCULAR LAB GENERIC (SCAN ORDER) (04/26/2025) 04/26/2025 us [facility] Scanned SCANNING Final Resu lt * OUTSIDE PT/INR (SCAN ORDER) (04/26/2025) 04/26/2025 [facility] Scanned SCANNING Final Resu lt * OUTSIDE LAB (SCAN ORDER) (04/26/2025) 04/26/2025 [facility] Scanned SCANNING Final Resu lt * ULTRASOUND GENERIC (SCAN ORDER) (04/26/2025) Anatomical Region Laterality Modality Other 04/26/2025 us [facility] Scanned SCANNING Final Resu lt * XR LUMB SPINE 3V (04/07/2025 10:00 AM WELFARE ANALYST) Anatomical Region Laterality Modality Spine Radiographic Shakira ging 04/07/2025 10:0 6 AM WELFARE ANALYST Impressions 04/07/2025 10:06 AM WELFARE ANALYST IMPRESSION: Stable appearance of the lumbar spine Ordered By: OLEG GIBSON Interpreted By: Garrett Oconnor MD, 04/07/2025 10:06 AM Narrative 04/07/2025 10:06 [place] [address] 3 VIEWS OF THE LUMBAR SPINE Clinical History: Low back pain Comparison: February 15, 2023 3 views of the lumbar spine demonstrate no evidence of fracture. Overall alignment is within normal limits. Bulky anterior vertebral body marginal osteophytes are again noted and appear unchanged. The vertebral body heights are symmetric and within normal limits throughout. The intervertebral disc heights demonstrate symmetry with a normal overall appearance. The facets are normally aligned. The spinous processes and transverse processes appear normal Procedure Note Garrett Oconnor MD - 04/07/[address] [address] 3 VIEWS OF THE LUMBAR SPINE Clinical History: Low back pain Comparison: February 15, 2023 3 views of the lumbar spine demonstrate no evidence of fracture. Overallalignment is within normal limits. Bulky anterior vertebral body marginalosteophytes are again noted and appear unchanged. The vertebral bodyheights are symmetric and within normal limits throughout. Theintervertebral disc heights demonstrate symmetry with a normal overallappearance. The facets are normally aligned. The spinous processes andtransverse processes appear normal IMPRESSION: Stable appearance of the lumbar spine Ordered By: OLEG GIBSON Interpreted By: Garrett Oconnor MD, 04/07/2025 10:06 AM [facility] Final Resul t * HEMOGLOBIN, GLYCOSYLATED (04/07/2025) HGB A1C 9.6 % [facility] BLOOD (Blood, Capillary) 04/07/2025 us [facility] Final Resul t [address] [address], [place] * CT GENERIC (04/02/2025) Only the most recent of3 resultswithin the time period is included. Anatomical Region Laterality Modality Other 04/02/2025 [facility] Scanned SCANNING Final Resu lt * HEMOGLOBIN, GLYCOSYLATED (03/04/2025) HGB A1C 10.4 % [facility] 03/04/2025 [facility] Final Resul t [facility] [address] [place] [address], [place] * DIABETIC RETINOPATHY EXAM (POSITIVE) (10/01/2024) [facility] Scanned SCANNING Final Resu lt [facility] * (ABNORMAL) LIPID PANEL (06/11/2024 9:27 AM WELFARE ANALYST) CHOLESTEROL 175 <200 MG/DL 06/11/2024 3:21 PM [facility] TRIGLYCERIDES 260(H) <150 MG/DL 06/11/2024 3:[address] [facility] HDL 47 >40 MG/DL 06/11/2024 3:21 PM [facility] LDL-C 76 <100 MG/DL 06/11/2024 3:[address] [facility] VLDL CALCULATION 52(H) 5 - 28 MG/DL 06/11/2024 3:21 PM [facility] CHOL/HDL RATIO 3.7 0.0 - 4.0 06/11/2024 3:21 PM [facility] LDL/HDL 1.6 0.41 - 2.13 06/11/2024 3:21 PM WELFARE ANALYST [facility] NON HDL CHOLESTEROL 128 <140 MG/DL 06/11/2024 3:21 PM WELFARE ANALYST [facility] 06/11/2024 9:27 AM WELFARE ANALYST us Oleg Gibson APNP LABORATORY Final Resul t [facility] [address] [facility] [place] [address], * HEP C SCANNED ORDERS (02/12/2023) [facility] Scanned SCANNING Final Resu lt [facility] ONBASE from Last 3 Months or Most Recently Relevant to Health Maintenance [place] [address] MEDICAID [facility] MEDICARE Care Teams Brass Finisher Relationship Specialty Start Date End Date Oleg Gibson APNP [facility] [place] [address] PCP - General NURSE PRACTITIONER 03/14/18 Eliu Garcia MD [facility], [address] [place] [address] Physician CARDIOVASCULAR DISEASE 03/06/23
--- OUTSIDE RECORDS SUMMARY | 2025-05-10 07:06 | XMS_ITS | Clinical Summary ---
Author Organization [facility] Address [address] [facility] [address] [place] [address] Phone Care Team Providers Care Clinical Nursing Instructor Name Role Phone Angelina Gibson APRN, JAMILAH [...] Comments Blood Pressure 104/68 04/22/2018 1:12 PM DIRECTOR OF PRIMARY CARE Pulse 97 04/22/2018 1:12 PM DIRECTOR OF PRIMARY CARE Temperature 36.6 C (97.8 F) 04/22/2018 1:12 PM DIRECTOR OF PRIMARY CARE Respiratory Rate 20 04/22/2018 1:12 PM DIRECTOR OF PRIMARY CARE Oxygen Saturation 96% 04/22/2018 1:12 PM DIRECTOR OF PRIMARY CARE Inhaled Oxygen Concentration - - Weight 119.3 kg (263 lb) 04/22/2018 1:12 PM DIRECTOR OF PRIMARY CARE Height 185.4 cm (6' 1) 04/22/2018 1:12 PM DIRECTOR OF PRIMARY CARE Body Mass Index 34.7 04/22/2018 1:12 PM DIRECTOR OF PRIMARY CARE Plan of Treatment Health Maintenance Due Date Last Done Comments Hepatitis C Virus (HCV) Screening 1965 TdaP Immunization 1965 Cologuard 2010 Colonoscopy 2010 Colorectal Cancer Screening [...] complete this topic Human Papillomavirus (HPV) Immunization (No Doses Required) Completed Meningococcal Immunization (ACWY) Aged Out No longer eligible based on patient's age to complete this topic Rotavirus Immunization Aged Out No lo nger eligible based on patient's age to complete this topic Care Teams Clinical Nursing Instructor Relationship Specialty Start Date End Date Angelina Gibson, JOSEPH, CLINICAL MATERIAL HANDLER [address] [place] [id number] PCP - General Family Medicine 03/20/18
--- OUTSIDE RECORDS SUMMARY | 2025-05-10 07:06 | XMS_ITS | Clinical Summary ---
Author Organization [facility] Address [address] [place] [address] Care Team Providers Care Saturator Tender Name Role Phone Angelina Gibson BREAKDOWN MAN-ENAMELER Primary Care Provider Source Comments [facility],non-owned Affiliates and Associated Physician Practices is amultiple site organization consisting of ambulatory clinics and hospital sitesin [place], [place], [place] and [place]. This disclosure is being madepursuant to the Care Everywhere program and may not contain all information available regarding this patient. Last updated 18.[facility] Allergies No known active allergies Medications * [...] naloxone HCl (Narcan) 4 MG/0.1ML nasal spray [place] 1 (one) spray into the nose as [...] every 7 days 5 Active HYDROcodone-ac etaminophen ([place]) 7.5-325 MG tablet Take 1 (one) tablet [...] Team Description 03/24/2025 Travel 03/10/2025 Transcribe Orders [facility] - Centralized Scheduling [facility] [place] [address] Angelina Gibson, BREAKDOWN MAN-ENAMELER Uncontrolled type 2 diabetes mellitus with hyperglycemia [...] on file Legal Sex Male 5:28 AM NOTE TELLER Gender Identity Not on file Sexual Orientation [...] Care Team (Late st Contact Info) Description 08/25/2025 9:30 AM CDT Testing Visit [facility] [address] [place] [phone] Frankie Carlisle, PhD [address] [place] [address] [address] [place] [address] 08/25/2025 10:00 AM CDT Office Visit [facility] [address] [place] [phone] Jakob Vazquez MD [address] [place] [address] [address] [place] [address] Health Maintenance Due Date Last Done Comments [...] 11 8 - 18 11/10/2020 3:02 PM [facility] BUN/Creatinine Ratio 17 7 - 23 11/10/2020 3:02 PM [facility] Osmolality Calculated 292 270 - 300 mOsm/kg 11/10/2020 3:02 PM [facility] Albumin/Globulin Ratio 0.9(L) 1.1 - 2.3 11/10/2020 3:02 PM [facility] eGFR by CKD-EPI 84(L) >=90 mL/min/1.7 3 m2 11/10/2020 3:02 PM CDT [facility] Blood BLOOD SPECIMEN / Unknown Venipuncture / Unknown 11/10/2020 8:24 AM CDT 11/10/2020 2:25 PM CDT Savannah Gray MD LAB - CHEMISTRY ORDE RABSUSSY Final Result Performing Organization Address [facility]/ZIP Co de Phone Number [address] [phone], [facility] [phone] * HEPATITIS C AB SCREEN RFLX NAAT QUANT (10/29/2020 4:54 AM CDT) Hepatitis C Antibody Non-react ciara Non-reac tive 10/29/2020 6:03 AM CDT [facility] Comment:Hepatitis C Antibody screen indicates no [...] ORDERABLES Fi nal Result Performing Organization Address City/[facility]/ZIP Co de Phone Number [address] [address], [facility] [phone] * HIV-1 HIV-2 ANTIBODY + HIV P24 AG PANEL (10/29/2020 4:54 AM CDT) HIV Antigen/Antibod y 1 & 2 Non-reacti ve Non-react ciara 10/29/2020 6:03 AM CDT [facility] Comment:Neither HIV-1 p24 An tigen nor HIV-1/HIV-2 Antibodies are detected. Blood BLOOD SPECIMEN / Unknown Lab Venipuncture / Unknown 10/29/2020 4:54 AM CDT 10/29/2020 5:19 AM CDT us Mike Block MD LAB - CHEMISTRY ORDERABLES Fi nal Result [facility] [address] [place] [address], [place] [phone] * (ABNORMAL) HEMOGLOBIN A1C (10/28/2020 8:22 AM CDT) Hemoglobin A1c 8.6(H) 4.4 - 6.3 % 10/28/2020 9:[address] [facility] Estimated Average Glucose 200 mg/dL 10/28/2020 9:37 AM CDT [facility] Comment: HbA1c Interpretation: Treatment target values recommended by ADA and other clinical organizations should be used to evaluate metabolic control in patients. Treatment Target Values: Normal : < 5.7% Pre-diabetes: 5.7-6.4% Diabetes: Equal to or greater than 6.5% Reference: [place] [employer] Standards of Care in Diabetes -2014 In patients 70 years and older consider HbA1c target range of 7.0-7.5% Reference: Diabetes Mellitus in Older People: Position Statement on behalf of the International Association of Gerontology and Geriatrics (IAGG), the Diabetes Working Constitution Party for Older People (EDWPOP), and the International Task Force of Experts in Diabetes. Gurjit Samuel, et al. J [place] [employer] Association. 2012 Test results diagnostic of diabetes should be repeated for confirmation. The Sebia Capillary 2 assay for the measurement of HbA1c is a National Glycohemoglobin Standardization Program (NGSP)certified method. Blood BLOOD SPECIMEN / Unknown Lab Venipuncture / Unknown 10/28/2020 8:22 AM CDT 10/28/2020 8:34 AM CDT us Zac Ferguson MD LAB - CHEMISTRY ORDERABLE S Final Result Performing Organization Address City/[facility]/ZIP Co de Phone Number [facility] [address] [place] [phone], [place] [phone] from Last 3 Months or Most Recently Relevant to Health Maintenance Insurance MEDICAID - OUT OF STATE [facility] MANAGED MEDICARE [facility] Advance Directives * Full Code (Latest Code Status on File) Date Activated Date Inactivated Comments 10/28/2020 1:25 AM 10/31/2020 8:47 PM Care Teams Saturator Tender Relationship Specialty Start Date End Date Angelina Gibson, BREAKDOWN MAN-ENAMELER [address] [place] [address] [facility] - General 05/21/19
--- OUTSIDE RECORDS SUMMARY | 2025-05-10 07:06 | XMS_ITS | Encounter Summary ---
Author Organization [facility] Address [address] [facility] [place] [address] Care Team Providers Care Corporate Statistical Financial Analyst Name Role Phone Angelina Gibson THIRD COOK-PROPRIETARY TRADER Primary Care Provider Reason for Visit * Reason Onset Date Comments Appointment 04/03/2024 Encounter Details Date Type Department Care Team (Late st Contact Info) Description 04/03/2024 Telephone [facility] [address] [place] [address] Jakob Vazquez MD [facility] [facility] DOOR [address] [place] [address] Appointment Social History Tobacco Use Types Packs/Day Years Used Date Smoking Tobacco: Never Smokeless Tobacco: Never Alcohol Use Standard Drinks/Week Comments Not Currently 0 (1 standard drink = 0.6 oz pur e alcohol) Sex and Gender Information Value Date Recorded Sex Assigned at Not on file Legal 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 Gender Identity Not on file Sexual Orientation [...] inside the ear Patient Call Back Number: [phone] ER CARE CASE MANAGER documented in this encounter Plan of Treatment Upcoming Encounters Date Type Department Care Team (Late st Contact Info) Description 08/25/2025 9:30 AM CDT Testing Visit [facility] [address] [place] [phone] Frankie Carlisle, PhD [address] [place] [address] [address] [place] [address] 08/25/2025 10:00 AM CDT Office Visit [facility] [address] [place] [phone] Jakob Vazquez MD [address] [place] [address] [address] [place] [address] documented as of this encounter Visit Diagnoses Not on filedocumented in this encounter Care Teams Corporate Statistical Financial Analyst Relationship Specialty Start Date End Date Angelina Gibson, THIRD COOK-PROPRIETARY TRADER [address] [place] [address] PCP - General 05/21/19 documented as of this encounter
[2025-05-10] MEDS: PERFLUTREN LIPID MICROSPHERES 1.5 ML VIAL DILUTED TO 10 ML TOTAL VOLUME IV PUSH (08:15)
--- NOTE | 2025-05-10 09:14 | IVDEFINITY ---
Prior to administration of IV Definity the patient was educated on the risks and benefits of the imaging enhancing agent including potential adverse side effects. The patient verbalized understanding. Allergies were verified. No exclusion criteria were identified and at least one of the following inclusion criteria were met: 1) physician request, 2) patient technically difficult to image (per the [place] [employer] Echocardi[employer] guidelines of two or more segments not discernable within the apical view), or 3) questionable left ventricular function. ?
== END 2025-05-10 07:00 | disposition home or self-care (01) ==
LOC: ANHCARD 07:03
PROVIDERS: PCP Registered Nurse; Visit Provider Registered Nurse
DX: G45.9 Transient cerebral ischemic attack, unspecified (principal)
CPT/HCPCS: 93242; 96375; C8929; Q9957